=== PATIENT | female | born 1965 | race Hispanic/Latino ===

== ENCOUNTER 2016-03-16 21:13 | Emergency (ER) | payer OTHER ==
[2016-03-16] MEDS ORDERED: TOBRAMYCIN 0.3% OPHTH SOLN 5 ML As Ordered ONE (23:31)
--- NOTE | 2016-03-16 23:49 | EDDOCDS ---
Physician Documentation [facility] Name: Michelle Toro Age: 51 yrs Sex: Female : 1965 Arrival Date: 03/16/2016 Time: 21:13 Bed I10 23 Private MD: ANNE MARIE Martinez Disposition: 03/16/16 23:28 Discharged to Home/Self Care. Impression: Conjunctivitis - BILATERAL. - Condition is Stable. - Discharge Instructions: Conjunctivitis (Viral and Bacterial). - Prescriptions for tobramycin 0.3 % Ophthalmic drops - instill 1 drop by OPHTHALMIC route every 4 hours BOTH EYES; 1 bottle. - Medication Reconciliation, Local Pharmacy Hours form. - Follow up: ANNE MARIE Martinez; When: 2 - 3 days; Reason: Recheck today's complaints, Continuance of care. Follow up: Osmel Denny; When: 2 - 3 days; Reason: Recheck today's complaints, Continuance of care. - Problem is new. - Symptoms have improved. Historical: - Allergies: Ciprofloxacin (Rash); Latex (Rash); Neurontinanxiety; PENICILLINS (Hives); - Home Meds: 1. hydroxyzine 25 mg nightly 25mg 2 tabs po at bedtime 2. pregabalin 25 mg Oral cap bid 3. tizanidine 4 mg oral tab 1 tab every 6 hours - PMHx: Anxiety; back pain; Fibromyalgia; neck pain; Spinal Stenosis; - PSHx: arthroscopy right ankle; - Social history: Smoking status: Patient states was never smoker of tobacco. No barriers to communication noted, The patient speaks fluent Amharic, Speaks appropriately for age, Preferred Language: Amharic. - Family history: Not pertinent. - : The pt / caregiver states he / she is not on anticoagulants. Home medication list is obtained from the patient. - Exposure Risk Screening:: None identified. 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 (160.02 cm) (R); Pain 7/10; 23:44 BP 155 / 83; Pulse 73; Resp 18; Temp 98.4(O); Pulse Ox 98% on R/A; Pain 0/10; rw1 21:15 Body Mass Index 31.18 (79.83 kg, 160.02 cm) elp Visual Acuity: 23:46 Left Eye Visual acuity 20/40, Normal; With Lenses; after Lt eye refused to continue rw1 with eye exam MDM: 23:14 Financial registration complete. pm4 23:21 Tobramycin Drops 0.3 % 1 drps Ophthalmic once; BOTH EYES ordered. ck7 Administered Medications: 23:46 Drug: Tobramycin 1 drps [tobramycin 0.3 % eye drops (1 drps)] Route: Ophthalmic; Site: [facility] both eyes; 23:46 Follow up: Response: Pt left department before re-evaluation is appropriate rw1 Signatures: Maynor Ozuna,FIELD TECHNICAL ASSISTANT FIELD TECHNICAL ASSISTANT rw1 Atiya Cohn,RN RN lf1 Myron Sanderson, ESPINOZA-C RPA-Cck7 George Britt, Reg Reg pm4 The chart was reviewed and I authenticate all verbal orders and agree with the evaluation and treatment provided.Corrections: (The following items were deleted from the chart) 22:53 22:24 Visual Acuity ordered. ck7 rw1 MTDD
--- NOTE | 2016-03-16 23:49 | EDDOCDS ---
Nurse's Notes [facility] Name: Michelle Toro Age: 51 yrs Sex: Female : 1965 Arrival Date: 03/16/2016 Time: 21:13 Bed I10 23 Private MD: ANNE MARIE Martinez Diagnosis: Conjunctivitis-BILATERAL Presentation: 03/16 21:29 Presenting complaint: Patient states: "Extreme allergies and oozing from my eyes" that lf1 causes me to go through three rolls of toilet paper per day. States she has tried Zyrtec and Olopatadine and it didn't work. "I'm here because I don't have a car to go to clinic". Mechanism of Injury: No Mechanism of Injury. The patient denies any loss of vision. Adult Sepsis Screening: The patient does not have new or worsening altered mentation. Patient's respiratory rate is less than 22. Systolic blood pressure is greater than 100. Patient has a qSOFA score of 0- Negative Sepsis Screen. Suicide/Homicide risk assessment- the patient denies having any suicidal and/or homicidal ideations and does not present with any other emotional, behavioral or mental health complaints. Status: Patient is not a director of home health services or dependent. Transition of care: patient was not received from another setting of care. 21:29 Acuity: CASA Level 5 lf1 21:29 Method Of Arrival: Wheelchair lf1 Triage Assessment: 21:39 General: Appears in no apparent distress, comfortable, Behavior is cooperative. Pain: lf1 Location: right eye and left eye Pain currently is 7 out of 10 on a pain scale. HIV screening NA for this visit Offered previously. Neurological: Level of Consciousness is awake, alert. EENT: Reports itchy watery eyes. Respiratory: Respiratory effort is even, unlabored. GI: Denies nausea, vomiting. 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 hydroxyzine 25 mg nightly 25mg 2 tabs po at bedtime 2. pregabalin 25 mg Oral cap bid 3. tizanidine 4 mg oral tab 1 tab every 6 hours - PMHx: Anxiety; back pain; Fibromyalgia; neck pain; Spinal Stenosis; - PSHx: arthroscopy right ankle; - Social history: Smoking status: Patient states was never smoker of tobacco. No barriers to communication noted, The patient speaks fluent [place] Island[place], Speaks appropriately for age, Preferred Language: [place] Island[place]. - Family history: Not pertinent. - : The pt / caregiver states he / she is not on anticoagulants. Home medication list is obtained from the patient. - Exposure Risk Screening:: None identified. Screenin:41 Screening information is obtained from the patient. Fall risk: No risks identified. lf1 Assistance ADL's: requires no assistance with activities of daily living. Abuse/DV Screen: The patient / caregiver reports he/she is: not in a situation that causes fear, pain or injury. Nutritional screening: No deficits noted. Advance Directives: Currently, there is no health care proxy. There is no active DNR order. home support is adequate. Assessment: 23:44 Reassessment: Patient appears in no apparent distress at this time. Patient denies pain rw1 at this time. Patient states feeling better. Patient states symptoms have improved. Vital Signs: 21:15 BP 136 / 84; Pulse 78; Resp 16; Temp 98.7(O); Pulse Ox 99% on R/A; Weight 79.83 kg (R); elp Height 63 in. (160.02 cm) (R); Pain 7/10; 23:44 BP 155 / 83; Pulse 73; Resp 18; Temp 98.4(O); Pulse Ox 98% on R/A; Pain 0/10; rw1 21:15 Body Mass Index 31.18 (79.83 kg, 160.02 cm) elp Vitals: 21:15 Log In Time: March 16, 2016 at 21:13. elp Visual Acuity: 23:46 Left Eye Visual acuity 20/40, Normal; With Lenses; after Lt eye refused to continue rw1 with eye exam ED Course: 21:15 Patient visited by Neeta Nolen PCA. elp 21:15 Michelle [facility] is Private Physician. elp 21:15 Patient moved to Waiting elp 21:17 Patient visited by Neeta Nolen PCA. elp 21:17 Patient moved to Pre RCE elp 21:31 Triage Initiated lf1 22:13 Patient moved to Triage 1 cln 22:24 [facility] 22:24 Filiberto Cook DO is Attending Physician. ck7 22:24 Patient visited by Myron Sanderson RPA-C. ck7 22:27 Patient moved to I10 / 23 cz 23:15 Patient visited by Myron Sanderson RPA-C. ck7 23:27 ANNE MARIE Martinez is Referral Physician. ck7 23:27 Osmel Denny is Referral Physician. ck7 23:44 The patient / caregiver is instructed regarding the plan of care and ED course. rw1 23:44 No IV's were initiated during this patient's visit. No procedures done that require rw1 assistance. Administered Medications: 23:46 Drug: Tobramycin 1 drps [tobramycin 0.3 % eye drops (1 drps)] Route: Ophthalmic; Site: rw1 both eyes; 23:46 Follow up: Response: Pt left department before re-evaluation is appropriate rw1 Order Results: There are currently no results for this order. Outcome: 23:28 Discharge ordered by Provider. ck7 23:44 Discharge Assessment: Patient awake, alert and oriented x 3. No cognitive and/or rw1 functional deficits noted. Patient verbalized understanding of disposition instructions. patient administered narcotics - no. The following High Risk Discharge criteria are identified: None. Discharged to home via wheelchair, with significant other. Condition: stable Condition: improved. Discharge instructions given to patient, Instructed on discharge instructions, follow up and referral plans. medication usage, Demonstrated understanding of instructions, medications, Pt was receptive of discharge instructions/ teaching. Prescriptions given X 1. No special radiology studies were completed. Property sent home with patient. 23:48 Patient left the ED. rw1 Signatures: Celestine Parmar, RN RN cz Maynor Ozuna,OPENING MACHINE CLEANER OPENING MACHINE CLEANER rw1 Atiya Cohn,RN RN 1 Myron Sanderson RPA-C RPA-Cck7 Tamanna, Neeta, AIRPLANE ELECTRICAL REPAIRER AIRPLANE ELECTRICAL REPAIRER elp Dori Loya, AIRPLANE ELECTRICAL REPAIRER AIRPLANE ELECTRICAL REPAIRER cln MTDD
--- NOTE | 2016-03-19 00:49 | EDDOCDS ---
Nurse's Notes [facility] Name: Michelle Toro Age: 51 yrs Sex: Female : 1965 Arrival Date: 03/16/2016 Time: 21:13 Bed I10 23 Private MD: ANNE MARIE Martinez Diagnosis: Conjunctivitis-BILATERAL Presentation: 03/16 21:29 Presenting complaint: Patient states: "Extreme allergies and oozing from my eyes" that lf1 causes me to go through three rolls of toilet paper per day. States she has tried Zyrtec and Olopatadine and it didn't work. "I'm here because I don't have a car to go to clinic". Mechanism of Injury: No Mechanism of Injury. The patient denies any loss of vision. Adult Sepsis Screening: The patient does not have new or worsening altered mentation. Patient's respiratory rate is less than 22. Systolic blood pressure is greater than 100. Patient has a qSOFA score of 0- Negative Sepsis Screen. Suicide/Homicide risk assessment- the patient denies having any suicidal and/or homicidal ideations and does not present with any other emotional, behavioral or mental health complaints. 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 Transition of care: patient was not received from another setting of care. 21:29 Acuity: CASA Level 5 lf1 21:29 Method Of Arrival: Wheelchair lf1 Triage Assessment: 21:39 General: Appears in no apparent distress, comfortable, Behavior is cooperative. Pain: lf1 Location: right eye and left eye Pain currently is 7 out of 10 on a pain scale. HIV screening NA for this visit Offered previously. Neurological: Level of Consciousness is awake, alert. EENT: Reports itchy watery eyes. Respiratory: Respiratory effort is even, unlabored. GI: Denies nausea, vomiting. 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 hydroxyzine 25 mg nightly 25mg 2 tabs po at bedtime 2. pregabalin 25 mg Oral cap bid 3. tizanidine 4 mg oral tab 1 tab every 6 hours - PMHx: Anxiety; back pain; Fibromyalgia; neck pain; Spinal Stenosis; - PSHx: arthroscopy right ankle; - Social history: Smoking status: Patient states was never smoker of tobacco. No barriers to communication noted, The patient speaks fluent Tuvaluan, Speaks appropriately for age, Preferred Language: Tuvaluan. - Family history: Not pertinent. - : The pt / caregiver states he / she is not on anticoagulants. Home medication list is obtained from the patient. - Exposure Risk Screening:: None identified. Screenin:41 Screening information is obtained from the patient. Fall risk: No risks identified. lf1 Assistance ADL's: requires no assistance with activities of daily living. Abuse/DV Screen: The patient / caregiver reports he/she is: not in a situation that causes fear, pain or injury. Nutritional screening: No deficits noted. Advance Directives: Currently, there is no health care proxy. There is no active DNR order. home support is adequate. Assessment: 23:44 Reassessment: Patient appears in no apparent distress at this time. Patient denies pain rw1 at this time. Patient states feeling better. Patient states symptoms have improved. Vital Signs: 21:15 BP 136 / 84; Pulse 78; Resp 16; Temp 98.7(O); Pulse Ox 99% on R/A; Weight 79.83 kg (R); elp Height 63 in. (160.02 cm) (R); Pain 7/10; 23:44 BP 155 / 83; Pulse 73; Resp 18; Temp 98.4(O); Pulse Ox 98% on R/A; Pain 0/10; rw1 21:15 Body Mass Index 31.18 (79.83 kg, 160.02 cm) elp Vitals: 21:15 Log In Time: March 16, 2016 at 21:13. elp Visual Acuity: 23:46 Left Eye Visual acuity 20/40, Normal; With Lenses; after Lt eye refused to continue rw1 with eye exam ED Course: 21:15 Patient visited by Neeta Nolen PCA. elp 21:15 [place] [facility] [place] Physician. elp 21:15 Patient moved to Waiting elp 21:17 Patient visited by Neeta Nolen PCA. elp 21:17 Patient moved to Pre RCE elp 21:31 Triage Initiated lf1 22:13 Patient moved to Triage 1 cln 22:24 [facility] Sand[facility]C [facility] 22:24 Filiberto Cook DO is Attending Physician. ck7 22:24 Patient visited by Myron Sanderson RPA-C. ck7 22:27 Patient moved to I10 / 23 cz 23:15 Patient visited by Myron Sanderson RPA-C. ck7 23:27 ANNE MARIE Martinez is Referral Physician. ck7 23:27 Osmel Denny is Referral Physician. ck7 23:44 The patient / caregiver is instructed regarding the plan of care and ED course. rw1 23:44 No IV's were initiated during this patient's visit. No procedures done that require rw1 assistance. 03/17 00:50 [facility] Payment Agreement was scanned into [employer] and attached to record. pm4 09:39 T-Sheet-- Draft Copy was scanned into [employer] and attached to record. gb Administered Medications: 03/16 23:46 Drug: Tobramycin 1 drps [tobramycin 0.3 % eye drops (1 drps)] Route: Ophthalmic; Site: rw both eyes; 23:46 Follow up: Response: Pt left department before re-evaluation is appropriate rw1 Order Results: There are currently no results for this order. Outcome: 23:28 Discharge ordered by Provider. ck7 23:44 Discharge Assessment: Patient awake, alert and oriented x 3. No cognitive and/or rw1 functional deficits noted. Patient verbalized understanding of disposition instructions. patient administered narcotics - no. The following High Risk Discharge criteria are identified: None. Discharged to home via wheelchair, with significant other. Condition: stable Condition: improved. Discharge instructions given to patient, Instructed on discharge instructions, follow up and referral plans. medication usage, Demonstrated understanding of instructions, medications, Pt was receptive of discharge instructions/ teaching. Prescriptions given X 1. No special radiology studies were completed. Property sent home with patient. 23:48 Patient left the ED. rw1 Signatures: Celestine Parmar, RN RN cz Ignacia Herman, Reg Reg gb Laith,Maynor,MARINE WATER TENDER MARINE WATER TENDER rw1 Atiya Cohn RN RN [facility] Myron Sanderson RPA-C [facility]7 Patchen, Neeta, CLERK TELEGRAPH SERVICE CLERK TELEGRAPH SERVICE elDori Hill, CLERK TELEGRAPH SERVICE CLERK TELEGRAPH SERVICE cln George Britt, Reg Reg pm4 Chart Complete MTDD
--- NOTE | 2016-03-19 00:49 | EDDOCDS ---
Physician Documentation [facility] Name: Michelle Toro Age: 51 yrs Sex: Female : 1965 Arrival Date: 03/16/2016 Time: 21:13 Bed I10 23 Private MD: ANNE MARIE Martinez Disposition: 03/16/16 23:28 Discharged to Home/Self Care. Impression: Conjunctivitis - BILATERAL. - Condition is Stable. - Discharge Instructions: Conjunctivitis (Viral and Bacterial). - Prescriptions for tobramycin 0.3 % Ophthalmic drops - instill 1 drop by OPHTHALMIC route every 4 hours BOTH EYES; 1 bottle. - Medication Reconciliation, Local Pharmacy Hours form. - Follow up: ANNE MARIE Martinez; When: 2 - 3 days; Reason: Recheck today's complaints, Continuance of care. Follow up: Osmel Denny; When: 2 - 3 days; Reason: Recheck today's complaints, Continuance of care. - Problem is new. - Symptoms have improved. Historical: - Allergies: Ciprofloxacin (Rash); Latex (Rash); Neurontinanxiety; PENICILLINS (Hives); - Home Meds: 1. hydroxyzine 25 mg nightly 25mg 2 tabs po at bedtime 2. pregabalin 25 mg Oral cap bid 3. tizanidine 4 mg oral tab 1 tab every 6 hours - PMHx: Anxiety; back pain; Fibromyalgia; neck pain; Spinal Stenosis; - PSHx: arthroscopy right ankle; - Social history: Smoking status: Patient states was never smoker of tobacco. No barriers to communication noted, The patient speaks fluent Khmer, Speaks appropriately for age, Preferred Language: Khmer. - Family history: Not pertinent. - : The pt / caregiver states he / she is not on anticoagulants. Home medication list is obtained from the patient. - Exposure Risk Screening:: None identified. 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 (160.02 cm) (R); Pain 7/10; 23:44 BP 155 / 83; Pulse 73; Resp 18; Temp 98.4(O); Pulse Ox 98% on R/A; Pain 0/10; rw1 21:15 Body Mass Index 31.18 (79.83 kg, 160.02 cm) elp Visual Acuity: 23:46 Left Eye Visual acuity 20/40, Normal; With Lenses; after Lt eye refused to continue rw1 with eye exam MDM: 23:14 Financial registration complete. pm4 23:21 Tobramycin Drops 0.3 % 1 drps Ophthalmic once; BOTH EYES ordered. 03/17 00:50 [facility] Payment Agreement was scanned into [employer] and attached to record. pm4 09:39 T-Sheet-- Draft Copy was scanned into [employer] and attached to record. gb Administered Medications: 03/16 23:46 Drug: Tobramycin 1 drps [tobramycin 0.3 % eye drops (1 drps)] Route: Ophthalmic; Site: [facility] both eyes; 23:46 Follow up: Response: Pt left department before re-evaluation is appropriate rw Signatures: Ignacia Herman, Reg Reg gb Maynor Ozuna LPN LPN rw1 Atiya Cohn,RN RN lf1 Myron Sanderson, RPA-C RPA-Cck7 George Britt, Reg Reg pm4 The chart was reviewed and I authenticate all verbal orders and agree with the evaluation and treatment provided.Corrections: (The following items were deleted from the chart) 22:53 22:24 Visual Acuity ordered. [facility] rw Attachments: 03/17 00:50 [facility] Payment Agreement pm4 09:39 T-Sheet-- Draft Copy gb Chart Complete MTDD
--- NOTE | 2016-03-19 00:49 | EDDOCDS ---
Physician Documentation [facility] Name: iMchelle Toro Age: 51 yrs Sex: Female : 1965 Arrival Date: 03/16/2016 Time: 21:13 Bed I10 23 Private MD: ANNE MARIE Martinez Disposition: 03/16/16 23:28 Discharged to Home/Self Care. Impression: Conjunctivitis - BILATERAL. - Condition is Stable. - Discharge Instructions: Conjunctivitis (Viral and Bacterial). - Prescriptions for tobramycin 0.3 % Ophthalmic drops - instill 1 drop by OPHTHALMIC route every 4 hours BOTH EYES; 1 bottle. - Medication Reconciliation, Local Pharmacy Hours form. - Follow up: ANNE MARIE Martinez; When: 2 - 3 days; Reason: Recheck today's complaints, Continuance of care. Follow up: Osmel Denny; When: 2 - 3 days; Reason: Recheck today's complaints, Continuance of care. - Problem is new. - Symptoms have improved. Historical: - Allergies: Ciprofloxacin (Rash); Latex (Rash); Neurontinanxiety; PENICILLINS (Hives); - Home Meds: 1. hydroxyzine 25 mg nightly 25mg 2 tabs po at bedtime 2. pregabalin 25 mg Oral cap bid 3. tizanidine 4 mg oral tab 1 tab every 6 hours - PMHx: Anxiety; back pain; Fibromyalgia; neck pain; Spinal Stenosis; - PSHx: arthroscopy right ankle; - Social history: Smoking status: Patient states was never smoker of tobacco. No barriers to communication noted, The patient speaks fluent Kazakh, Speaks appropriately for age, Preferred Language: Kazakh. - Family history: Not pertinent. - : The pt / caregiver states he / she is not on anticoagulants. Home medication list is obtained from the patient. - Exposure Risk Screening:: None identified. 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 (160.02 cm) (R); Pain 7/10; 23:44 BP 155 / 83; Pulse 73; Resp 18; Temp 98.4(O); Pulse Ox 98% on R/A; Pain 0/10; rw1 21:15 Body Mass Index 31.18 (79.83 kg, 160.02 cm) elp Visual Acuity: 23:46 Left Eye Visual acuity 20/40, Normal; With Lenses; after Lt eye refused to continue rw1 with eye exam MDM: 23:14 Financial registration complete. pm4 23:21 Tobramycin Drops 0.3 % 1 drps Ophthalmic once; BOTH EYES ordered. 03/17 00:50 [facility] [place] Payment Agreement was scanned into [employer] and attached to record. pm4 09:39 T-Sheet-- Draft Copy was scanned into [employer] and attached to record. gb Administered Medications: 03/16 23:46 Drug: Tobramycin 1 drps [tobramycin 0.3 % eye drops (1 drps)] Route: Ophthalmic; Site: [facility] both eyes; 23:46 Follow up: Response: Pt left department before re-evaluation is appropriate rw Signatures: Ignacia Herman, Reg Reg gb Maynor Ozuna LPN LPN rw1 Atiya Cohn,RN RN lf1 Myron Sanderson, RPA-C RPA-Cck7 George Britt, Reg Reg pm4 The chart was reviewed and I authenticate all verbal orders and agree with the evaluation and treatment provided.Corrections: (The following items were deleted from the chart) 22:53 22:24 Visual Acuity ordered. [facility] rw Attachments: 03/17 00:50 [facility] [place] Payment Agreement pm4 09:39 T-Sheet-- Draft Copy gb Chart Complete MTDD
== END 2016-03-16 23:49 | disposition home or self-care (01) ==
LOC: M ED 21:13
DX: H10.33 Unspecified acute conjunctivitis, bilateral (principal); F41.9 Anxiety disorder, unspecified; M79.7 Fibromyalgia; M54.2 Cervicalgia; M48.00 Spinal stenosis, site unspecified; Z79.899 Other long term (current) drug therapy; Z88.1 Allergy status to other antibiotic agents; Z88.8 Allergy status to other drugs, medicaments and biological substances; Z88.0 Allergy status to penicillin

== ENCOUNTER 2016-04-01 01:35 | Observation (INO) | payer OTHER ==
[~2016-04-01] VITALS: Ht 161.3 cm; Wt 79.7 kg
[2016-04-01] MEDS ORDERED: EPINEPHrine INJ 1 MG/ML 1ML VIAL/AMP As Ordered ONE (02:07)
[2016-04-01] MEDS ORDERED: methylPREDNISolone INJ 125 MG/2 ML VIAL (J2930) As Ordered ONE (02:08)
[2016-04-01] MEDS ORDERED: diphenhydrAMINE INJ 50MG/ML VIAL (J1200) As Ordered ONE (02:08)
[2016-04-01] MEDS ORDERED: FAMOTIDINE INJ 20MG/2ML VIAL (S0028) As Ordered ONE (02:08)
[2016-04-01] MEDS ORDERED: ONDANSETRON 4MG/2ML VIAL (J2405) As Ordered ONE (02:28)
[2016-04-01 03:42] LABS: BASO % 0.3 % (0.0-1.0); EOS # 0.3 K/mm3 (0.0-0.50); EOS % 3.2 % (0.0-3.0); LARGE UNSTAINED CELL # 0.2 K/mm3 (0.0-0.4); LARGE UNSTAINED CELL % 1.8 % (0.0-4.0); LYMPH # 4.4 K/mm3 (1.5-4.5); LYMPH % 42.4 % (24.0-44.0); MEAN CORPUSCULAR HEMOGLOBIN 28.7 pg (27.0-33.0); MEAN CORPUSCULAR HGB CONC 32.9 g/dl (32.0-36.5); MEAN CORPUSCULAR VOLUME 87.2 fl (80.0-96.0); MONO # 0.4 K/mm3 (0.0-0.8); MONO % 3.9 % (0.0-5.0); NEUTROPHILS # 5.1 K/mm3 (1.8-7.7); NEUTROPHILS % 48.5 % (36.0-66.0); PLATELET COUNT, AUTOMATED 396 k/mm3 (150-450); RED CELL DISTRIBUTION WIDTH 13.3 % (11.5-14.5); WHITE BLOOD COUNT 10.4 K/mm3 (4.0-10.0)
[2016-04-01 03:46] LABS: ANION GAP 9 MEQ/L (8-16); BLOOD UREA NITROGEN 14 MG/DL (7-18); CALCIUM LEVEL 8.1 MG/DL (8.5-10.1); CARBON DIOXIDE LEVEL 27 MEQ/L (21-32); CHLORIDE LEVEL 108 MEQ/L (98-107); CREATININE FOR GFR 0.69 MG/DL (0.55-1.02); GLOMERULAR FILTRATION RATE > 60.0 (>51); GLUCOSE, FASTING 120 MG/DL (70-105); POTASSIUM SERUM 3.7 MEQ/L (3.5-5.1); SODIUM LEVEL 144 MEQ/L (136-145)
[2016-04-01 04:02] LABS: ERYTHROCYTE SEDIMENTATION RATE 18 mm/hr (0-30)
[2016-04-01] MEDS ORDERED: NS 1,000 ML IV SCH (06:18)
[2016-04-01] MEDS ORDERED: EPINEPHrine INJ 1 MG/ML 1ML VIAL/AMP IV PRN (06:30)
[2016-04-01] MEDS ORDERED: ACETAMINOPHEN TAB 650MG DOSE (2X325MG) PO PRN (06:30)
[2016-04-01] MEDS ORDERED: diphenhydrAMINE INJ 50MG/ML VIAL (J1200) IV PRN (06:30)
[2016-04-01] MEDS ORDERED: ONDANSETRON 4MG/2ML VIAL (J2405) IV PRN (06:30)
--- NOTE | 2016-04-01 06:38 | HPEPDOC ---
General Date of Admission 04/01/2016 Chief Complaint The patient is a 51-year-old female admitted with a reason for visit of Allergic Reaction. Source: Patient Exam Limitations: No limitations History of Present Illness 51-year-old female with past medical history of fibromyalgia and spinal stenosis presented to the ER with a chief complaint of swelling of the lips, and hoarseness of voice. According to the patient, she recently had her Lyrica dose increased from 25 mg daily to 200 mg daily by her primary care physician. She states that she started to feel "foggy" mentally, and subsequently started to develop swelling of the lips, and noticed that her voice sounded more muffled. In addition, the patient notes that she also felt like she had difficulty breathing during this time. In the ER, the patient received a dose of Solu-Medrol, Benadryl, Pepcid, and epinephrine. Subsequently, the patient's lip swelling, voice, and respiratory status significantly improved thereafter. The patient denies any complaints of fevers, chills, shortness of breath, palpitations, abdominal pain, or any nausea/vomiting at this time. The patient will be admitted to the hospitalist service for further monitoring of her symptoms given the recent turn of events. Past Medical History Medical History As noted in HPI. 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 Lives at home, functions independently, ambulates with a walker. Review of Symptoms Other systems 10 point review of systems negative unless otherwise specified in HPI. Physical Examination General Exam: Positive: Alert, Cooperative, No Acute Distress ENT Exam: Positive: Atraumatic, Mucous membr. moist/pink, Nares Patent, Pharynx Normal, Tongue Midline, Negative: Pharyngeal Edema Neck Exam: Negative: JVD, Lymphadenopathy, thyromegaly Chest Exam: Positive: Clear to auscultation, Normal air movement Heart Exam: Positive: Normal S1, Normal S2, Rate Normal Telemetry: Positive: Sinus Abdomen Exam: Positive: Soft, Negative: Tenderness Extremity Exam: Negative: Swelling, Tenderness Laboratory Data Labs 24H Laboratory Tests 2 04/01/16 02:33: Anion Gap 9, White Blood Count 10.4H, Red Blood Count 3.96L, Hemoglobin 11.4L, Hematocrit 34.5L, Mean Corpuscular Volume 87.2, Mean Corpuscular Hemoglobin 28.7 , Mean Corpuscular Hemoglobin Concent 32.9, Red Cell Distribution Width 13.3, Platelet Count 396, Neutrophils (%) (Auto) 48.5, Lymphocytes (%) (Auto) 42.4, Monocytes (%) (Auto) 3.9, Eosinophils (%) (Auto) 3.2H, Basophils (%) (Auto) 0.3 , Neutrophils # (Auto) 5.1, Lymphocytes # (Auto) 4.4, Monocytes # (Auto) 0.4, Eosinophils # (Auto) 0.3, Basophils # (Auto) 0.0, C-Reactive Protein, Quantitative 0.81H, Blood Urea Nitrogen 14, Creatinine 0.69, Sodium Level 144, Potassium Level 3.7, Chloride Level 108H, Carbon Dioxide Level 27, Calcium Level 8.1L, Creatine Kinase MB 1.3, Creatine Kinase MB Relative Index 4.06H, Erythrocyte Sedimentation Rate 18, Glomerular Filtration Rate > 60.0, Large Unclassified Cells # 0.2, Large Unclassified Cells % 1.8, Total Creatine Kinase 32, Troponin I < 0.02 CBC/BMP Laboratory Tests 04/01/16 02:33 Calcium Level 8.1 L, Red Blood Count 3.96 L, Mean Corpuscular Volume 87.2, Mean Corpuscular Hemoglobin 28.7, Mean Corpuscular Hemoglobin Concent 32.9, Red Cell Distribution Width 13.3, Neutrophils (%) (Auto) 48.5, Lymphocytes (%) (Auto) 42.4, Monocytes (%) (Auto) 3.9, Eosinophils (%) (Auto) 3.2 H, Basophils (%) ( Auto) 0.3, Neutrophils # (Auto) 5.1, Lymphocytes # (Auto) 4.4, Monocytes # (Auto ) 0.4, Eosinophils # (Auto) 0.3, Basophils # (Auto) 0.0 Plan / VTE VTE Prophylaxis Ordered?: Yes (TEDs) Plan Plan Angioedema secondary to medication effect We'll admit to telemetry for further monitoring Status post Solu-Medrol, Benadryl, epinephrine, and Pepcid in the ER Patient's symptoms of angioedema have since resolved We'll discontinue the Lyrica at this time Benadryl, epinephrine ordered when necessary for allergic reaction Continue gentle IV fluid hydration We'll continue to monitor the patient's respiratory status closely Fibromyalgia Continue tizanidine, hydroxyzine History of spinal stenosis Patient ambulates with a cane at baseline. We will order physical therapy, as the patient states that she is feeling weaker in recent weeks DVT prophylaxis-TEDs The patient will be admitted under the service of Dr. Rogel, who will begin to follow this patient on 04/01/2016 at 7 AM. KYLEE MENON MD Apr 01, 2016 06:38
[2016-04-01] MEDS ORDERED: TIZA4CAP3 PO (06:57)
[2016-04-01] MEDS ORDERED: HYDR-4274 PO (06:57)
[2016-04-01] MEDS ORDERED: LYRI200C PO (06:57)
[2016-04-01] MEDS ORDERED: tiZANidine 4 MG TAB As Ordered ONE (08:54)
[2016-04-01] MEDS ORDERED: hydrOXYzine 25 MG TAB As Ordered ONE (08:55)
[2016-04-01] MEDS: hydrOXYzine 25 MG TAB PO SCH ×2 (08:57→21:23)
[2016-04-01] MEDS: tiZANidine 4 MG TAB PO SCH ×3 (08:57→21:23)
[2016-04-01 09:01] VITALS: BP 133/60
--- NOTE | 2016-04-01 12:55 | ECGEPIP ---
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
--- NOTE | 2016-04-01 13:52 | EDDOCDS ---
Physician Documentation [facility] Name: Michelle Toro Age: 51 yrs Sex: Female : 1965 Arrival Date: 04/01/2016 Time: 01:35 Bed 19 Private MD: Disposition: 04/01/16 05:54 Hospitalization ordered by Rivera Toth for Inpatient Admission. Preliminary diagnosis are Anaphylactic reaction due to adverse effect of correct drug or medicament properly administered, Hypotension, unspecified. - Bed requested for PCU. - Status is Inpatient Admission. dy - Condition is Stable. - Problem is an acute exacerbation. - Symptoms have improved. Historical: - Allergies: Ciprofloxacin (Rash); Latex (Rash); Neurontinanxiety; PENICILLINS (Hives); - Home Meds: 1. hydroxyzine 25 mg nightly 25mg 2 tabs po at bedtime 2. pregabalin 25 mg Oral cap bid 3. tizanidine 4 mg oral tab 1 tab every 6 hours - PMHx: Anxiety; back pain; Fibromyalgia; neck pain; Spinal Stenosis; - Social history: Smoking status: Patient states former smoker of tobacco. No barriers to communication noted, The patient speaks fluent Albanian. - Family history: No immediate family members are acutely ill. - : The pt / caregiver states he / she is not on anticoagulants. Home medication list is obtained from the patient. - Exposure Risk Screening:: None identified. BELT SEWER: 04/01 01:50 LMP N/A - Post-menopause kas2 Vital Signs: 01:56 BP 92 / 54; Pulse 64; Resp 18; Pulse Ox 94% on R/A; Pain 4/10; kas2 02:14 BP 87 / 54 (auto/); mv5 02:14 Pulse 68 MON; Pulse Ox 95% ; mv5 02:25 BP 94 / 54 (auto/); mv5 02:25 Pulse 74 MON; Pulse Ox 92% ; mv5 02:29 BP 103 / 55 (auto/); mv5 02:29 Pulse 72 MON; Pulse Ox 93% ; mv5 02:47 BP 97 / 55 (auto/); mv5 02:47 Pulse 78 MON; Pulse Ox 95% ; mv5 02:59 BP 94 / 53 (auto/); mv5 02:59 Pulse 76 MON; Pulse Ox 98% ; mv5 03:14 BP 84 / 51 (auto/); mv5 03:14 Pulse 74 MON; Pulse Ox 99% ; mv5 03:23 BP 92 / 52 (auto/); mv5 03:23 Pulse 74 MON; Pulse Ox 99% ; mv5 03:29 BP 80 / 50 (auto/); mv5 03:29 Pulse 72 MON; Pulse Ox 98% ; mv5 03:34 BP 88 / 53 (auto/); mv5 03:34 Pulse 70 MON; Pulse Ox 98% ; mv5 03:44 BP 80 / 51 (auto/); mv5 03:44 Pulse 68 MON; Pulse Ox 98% ; mv5 03:46 BP 86 / 53 (auto/); mv5 03:46 Pulse 76 MON; Pulse Ox 99% ; mv5 03:59 BP 79 / 52 (auto/); mv5 03:59 Pulse 68 MON; Pulse Ox 99% ; mv5 04:03 BP 92 / 51 (auto/); mv5 04:03 Pulse 72 MON; Pulse Ox 99% ; mv5 04:14 BP 83 / 52 (auto/); mv5 04:14 Pulse 68 MON; Pulse Ox 98% ; mv5 04:29 BP 81 / 52 (auto/); mv5 04:29 Pulse 68 MON; Pulse Ox 99% ; mv5 05:03 BP 87 / 51 (auto/); mv5 05:03 Pulse 66 MON; Pulse Ox 98% ; mv5 05:14 BP 90 / 54 (auto/); mv5 05:14 Pulse 68 MON; Pulse Ox 98% ; mv5 05:29 BP 83 / 54 (auto/); mv5 05:29 Pulse 64 MON; Pulse Ox 99% ; mv5 05:37 BP 89 / 55 (auto/); mv5 05:37 Pulse 72 MON; Pulse Ox 98% ; mv5 05:44 BP 91 / 58 (auto/); mv5 05:44 Pulse 74 MON; Pulse Ox 98% ; mv5 05:59 BP 94 / 57 (auto/); mv5 05:59 Pulse 70 MON; Pulse Ox 98% ; mv5 06:14 BP 88 / 52 (auto/); mv5 06:14 Pulse 70 MON; Pulse Ox 98% ; mv5 06:35 BP 103 / 57 (auto/); mv5 06:37 Pulse 70 MON; Pulse Ox 92% ; mv5 07:05 Temp 96.8(O); jrd 07:05 BP 89 / 54 (auto/); mv5 07:05 Pulse 68 MON; Pulse Ox 96% ; mv5 07:34 Pulse 96 MON; Pulse Ox 94% ; hs1 07:35 BP 108 / 58 (auto/); hs1 07:35 BP 108 / 58; Pulse 97; Resp 18; Pulse Ox 94% on R/A; Pain 0/10; hs1 08:23 Pulse 92 MON; Pulse Ox 94% ; hs1 08:24 BP 103 / 68 (auto/); hs1 MDM: 02:02 IV Saline Lock ordered. mm11 02:02 NS 0.9% 1000 ml IV at bolus once ordered. mm11 02:02 Solu-MEDROL 125 mg IVP once ordered. mm11 02:02 diphenhydrAMINE 50 mg IVP once ordered. mm11 02:02 Famotidine 20 mg IVPB once over 30 mins; dilute in 50mL of NS ordered. mm11 02:02 EPINEPHrine (1:1000) 0.3 ml IM once; Deep IM ordered. mm11 02:14 [employer] Supervisor/Pulse Ox/q 30 min VS ordered. mm11 02:19 The patient was assigned to Observation Status due to the intensity of required mm11 treatment, and remained under my care. 02:28 Ondansetron 4 mg IVP once ordered. mm11 02:48 Financial registration complete. pm4 02:49 [facility] Payment Agreement was scanned into [employer] and attached to record. pm4 03:25 NS 0.9% 1000 ml IV at bolus once ordered. mm11 03:25 CBC with Diff Ordered. EDMS 03:25 BMP Ordered. EDMS 03:25 ESR Ordered. EDMS 03:25 CRP Ordered. EDMS 03:59 CBC with Diff Reviewed. mm11 03:59 BMP Reviewed. mm11 03:59 CRP Reviewed. mm11 04:05 ECG WITH READING ER PHYS+CARDIAG ordered. EDMS 04:06 Cardiac Marker Panel Ordered. EDMS 04:32 CBC with Diff Reviewed. mm11 04:32 Cardiac Marker Panel Reviewed. mm11 04:32 ESR Reviewed. mm11 05:44 LR Solution 1000 ml IV at bolus once ordered. mm11 06:26 TROPONIN Ordered. EDMS 06:26 TROPONIN Ordered. EDMS 06:26 TROPONIN Ordered. EDMS 06:27 PHYSICAL THERAPY EVAL & TREAT ordered. EDMS 06:28 Admission / Observation Status ordered. EDMS 06:28 REGULAR DIET ordered. EDMS 06:53 Oral Temp ordered. ml 09:56 T-Sheet-- Draft Copy was scanned into [employer] and attached to record. gb Administered Medications: 02:36 Drug: Ondansetron 4 mg [ondansetron HCl 2 mg/mL intravenous solution (2 mL)] Route: mv5 IVP; Site: right hand; 03:26 Follow up: Response: Nausea is decreased; No Adverse Reaction mv5 02:37 Drug: diphenhydrAMINE 50 mg [diphenhydramine 50 mg/mL injection solution (1 mL)] Route: mv5 IVP; Site: right hand; 03:26 Follow up: Response: No Adverse Reaction mv5 02:37 Drug: Famotidine 20 mg [famotidine 10 mg/mL intravenous solution] Route: IVPB; Infused mv5 Over: 30 mins; Site: right hand; 02:37 Drug: EPINEPHrine (1:1000) 0.3 ml [epinephrine HCl (PF) 1 mg/mL (1 mL) intravenous mv5 solution (0.3 mL)] Route: IM; Site: right deltoid; 03:26 Follow up: Response: No Adverse Reaction mv5 02:38 Drug: NS 0.9% 1000 ml [sodium chloride 0.9 % intravenous solution] Route: IV; Rate: mv5 bolus; Site: right hand; 02:38 Drug: Solu-MEDROL 125 mg [Solu-Medrol 500 mg intravenous solution (125 mg)] Route: IVP; mv5 Site: right hand; 03:26 Follow up: Response: No Adverse Reaction mv5 03:25 Drug: NS 0.9% 1000 ml [sodium chloride 0.9 % intravenous solution] Route: IV; Rate: mv5 bolus; Site: right hand; 05:55 Drug: LR 1000 ml [lactated ringers intravenous solution] Route: IV; Rate: bolus; Site: mv5 right hand; 07:35 Follow up: BP 108 / 58; Pulse 97 bpm; Resp 18 bpm; Pulse Ox 94% RA; Pain 0/10 Adult hs1 07:35 Follow up: IV Status: Completed infusion; IV Intake: 1000ml hs1 Signatures: Dispatcher [employer] EDNE Vera Sauceda MD MD ml Miranda Garza, Thermostat Maker Unit deg Ignacia Herman, Reg Reg gb Burke Shepherd, RN RN dy Nadeem Peña, DO DO mm11 Elisa Buenrostro,RN RN kas2 George Britt, Reg Reg pm4 Ping Lopez,RN RN mv5 Aurea Richards RN hs1 The chart was reviewed and I authenticate all verbal orders and agree with the evaluation and treatment provided.Attachments: 02:49 [facility] Payment Agreement pm4 09:56 T-Sheet-- Draft Copy gb MTDD
--- NOTE | 2016-04-01 13:52 | EDDOCDS ---
Nurse's Notes [facility] Name: Katherine Toro Age: 51 yrs Sex: Female : 1965 Arrival Date: 04/01/2016 Time: 01:35 Bed 19 Private MD: Diagnosis: Anaphylactic reaction due to adverse effect of correct drug or medicament properly administered;Hypotension, unspecified Presentation: 04/01 01:45 Presenting complaint: Patient states: Patient states her physician increased her dose kas2 of lyrica on Mar 30 and she has noticed today her lips are swelling and itching. States it is harder to swallow. Patient able to swallow secretions. Complaining of chest pain and shortness of breath. Onset: The symptoms/episode began/occurred yesterday. The patient has a history of a previous allergic reaction. The previous reaction involved swelling. The previous reaction involved shortness of breath. Anaphylaxis evaluation, the patient reports or I have noted the following symptoms which indicate a significant risk of anaphylaxis: chest pain lump in the throat which may suggest laryngeal edema shortness of breath. Adult Sepsis Screening: The patient does not have new or worsening altered mentation. Patient's respiratory rate is less than 22. Systolic blood pressure is greater than 100. Patient has a qSOFA score of 0- Negative Sepsis Screen. Suicide/Homicide risk assessment- the patient denies having any suicidal and/or homicidal ideations and does not present with any other emotional, behavioral or mental health complaints. Status: retired . Transition of care: patient was not received from another setting of care. 01:45 Acuity: CASA Level 2 kas2 01:45 Method Of Arrival: Walkin/Carried/Asstd kas2 Triage Assessment: 01:50 General: Appears in no apparent distress, uncomfortable, well nourished, well groomed, kas2 Behavior is appropriate for age, cooperative. Pain: Location: chest Pain currently is 6 out of 10 on a pain scale. Pt Declines HIV testing. Neurological: Level of Consciousness is awake, alert, Oriented to person, place, time. EENT:. Cardiovascular: Capillary refill < 3 seconds Heart tones S1 S2 present. Respiratory: Airway is patent Respiratory effort is even, unlabored, Respiratory pattern is regular, symmetrical, Reports shortness of breath at rest. Derm: Skin is intact, Skin is dry, Skin is pink, warm & dry. Skin temperature is warm. Derm: Patient states her lips are swollen and she feels her throat is closing up. Swollen area noted on lips. Musculoskeletal: Reports Denies. 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 hydroxyzine 25 mg nightly 25mg 2 tabs po at bedtime 2. pregabalin 25 mg Oral cap bid 3. tizanidine 4 mg oral tab 1 tab every 6 hours - PMHx: Anxiety; back pain; Fibromyalgia; neck pain; Spinal Stenosis; - Social history: Smoking status: Patient states former smoker of tobacco. No barriers to communication noted, The patient speaks fluent Korean. - Family history: No immediate family members are acutely ill. - : The pt / caregiver states he / she is not on anticoagulants. Home medication list is obtained from the patient. - Exposure Risk Screening:: None identified. Screenin:50 Screening information is obtained from the patient. Fall risk: No risks identified. mv5 Assistance ADL's: requires no assistance with activities of daily living. Abuse/DV Screen: The patient / caregiver reports he/she is: not in a situation that causes fear, pain or injury. Nutritional screening: No deficits noted. Advance Directives: There is no active DNR order. home support is adequate. Assessment: 01:50 General: Appears in no apparent distress, Behavior is anxious. Neurological: Level of mv5 Consciousness is awake, alert, Oriented to person, place, time. Cardiovascular: Capillary refill < 3 seconds Heart tones S1 S2 present Rhythm is regular. Respiratory: Airway is patent Respiratory effort is even, unlabored, Respiratory pattern is regular, symmetrical, Breath sounds are clear bilaterally. Derm: Skin is pink, warm & dry. 03:00 General: Appears in no apparent distress, Behavior is cooperative, drowsy. General: mv5 Appears to be sleeping. Neurological: Level of Consciousness is wakes easily to voice.. Cardiovascular: Rhythm is sinus rhythm No ectopy. Respiratory: Airway is patent Respiratory effort is even, unlabored, relaxed, Respiratory pattern is regular, symmetrical, 2LNC applied for sp02 89-90% on RA. Pt encouraged to take deep breaths periodically. Derm: Skin is pink, warm & dry. 03:49 General: Appears uncomfortable. Neurological: Level of Consciousness is awake, alert, mv5 Oriented to person, place, time. Cardiovascular: Rhythm is sinus rhythm No ectopy. Cardiovascular: Chest pain is described as pt c/o discomfort in R/L chest, non radiating. MD aware.. quality is pressure. Respiratory: Airway is patent Respiratory effort is even, unlabored, Respiratory pattern is regular, symmetrical. Derm: Skin is pink, warm & dry. 04:36 General: Appears in no apparent distress, to be sleeping. Cardiovascular: Rhythm is mv5 sinus rhythm No ectopy. Respiratory: Airway is patent Respiratory effort is even, unlabored, relaxed, Respiratory pattern is regular, symmetrical. Derm: Skin is pink, warm & dry. 05:35 General: Appears in no apparent distress, to be sleeping. Cardiovascular: Rhythm is mv5 sinus rhythm. Respiratory: Airway is patent Respiratory effort is even, unlabored, Respiratory pattern is regular, symmetrical, Breath sounds are clear. Derm: Skin is pink, warm & dry. 06:40 General: Appears in no apparent distress, Behavior is cooperative, pleasant, Pt mv5 assisted to restroom and returned safely. Pt ambulates with stand by assist and steady gait.. Neurological: Level of Consciousness is awake, alert, Oriented to person, place, time. Cardiovascular: Rhythm is sinus rhythm No ectopy. Respiratory: Airway is patent Respiratory effort is even, unlabored, Respiratory pattern is regular, symmetrical. Derm: Skin is pink, warm & dry. 07:40 General: Appears in no apparent distress, Behavior is cooperative, patient states she hs1 is feeling much better than during the night. Patient has eaten breakfast and reports tingling in lips has decreased. . Respiratory: Airway is patent Respiratory effort is even, unlabored, Respiratory pattern is regular, symmetrical, Breath sounds are clear bilaterally. Derm: Skin is pink, warm & dry. mild redness and swelling around lips. Patient reports very much improved since her arrival last night. Vital Signs: 01:56 BP 92 / 54; Pulse 64; Resp 18; Pulse Ox 94% on R/A; Pain 4/10; kas2 02:14 BP 87 / 54 (auto/); mv5 02:14 Pulse 68 MON; Pulse Ox 95% ; mv5 02:25 BP 94 / 54 (auto/); mv5 02:25 Pulse 74 MON; Pulse Ox 92% ; mv5 02:29 BP 103 / 55 (auto/); mv5 02:29 Pulse 72 MON; Pulse Ox 93% ; mv5 02:47 BP 97 / 55 (auto/); mv5 02:47 Pulse 78 MON; Pulse Ox 95% ; mv5 02:59 BP 94 / 53 (auto/); mv5 02:59 Pulse 76 MON; Pulse Ox 98% ; mv5 03:14 BP 84 / 51 (auto/); mv5 03:14 Pulse 74 MON; Pulse Ox 99% ; mv5 03:23 BP 92 / 52 (auto/); mv5 03:23 Pulse 74 MON; Pulse Ox 99% ; mv5 03:29 BP 80 / 50 (auto/); mv5 03:29 Pulse 72 MON; Pulse Ox 98% ; mv5 03:34 BP 88 / 53 (auto/); mv5 03:34 Pulse 70 MON; Pulse Ox 98% ; mv5 03:44 BP 80 / 51 (auto/); mv5 03:44 Pulse 68 MON; Pulse Ox 98% ; mv5 03:46 BP 86 / 53 (auto/); mv5 03:46 Pulse 76 MON; Pulse Ox 99% ; mv5 03:59 BP 79 / 52 (auto/); mv5 03:59 Pulse 68 MON; Pulse Ox 99% ; mv5 04:03 BP 92 / 51 (auto/); mv5 04:03 Pulse 72 MON; Pulse Ox 99% ; mv5 04:14 BP 83 / 52 (auto/); mv5 04:14 Pulse 68 MON; Pulse Ox 98% ; mv5 04:29 BP 81 / 52 (auto/); mv5 04:29 Pulse 68 MON; Pulse Ox 99% ; mv5 05:03 BP 87 / 51 (auto/); mv5 05:03 Pulse 66 MON; Pulse Ox 98% ; mv5 05:14 BP 90 / 54 (auto/); mv5 05:14 Pulse 68 MON; Pulse Ox 98% ; mv5 05:29 BP 83 / 54 (auto/); mv5 05:29 Pulse 64 MON; Pulse Ox 99% ; mv5 05:37 BP 89 / 55 (auto/); mv5 05:37 Pulse 72 MON; Pulse Ox 98% ; mv5 05:44 BP 91 / 58 (auto/); mv5 05:44 Pulse 74 MON; Pulse Ox 98% ; mv5 05:59 BP 94 / 57 (auto/); mv5 05:59 Pulse 70 MON; Pulse Ox 98% ; mv5 06:14 BP 88 / 52 (auto/); mv5 06:14 Pulse 70 MON; Pulse Ox 98% ; mv5 06:35 BP 103 / 57 (auto/); mv5 06:37 Pulse 70 MON; Pulse Ox 92% ; mv5 07:05 Temp 96.8(O); jrd 07:05 BP 89 / 54 (auto/); mv5 07:05 Pulse 68 MON; Pulse Ox 96% ; mv5 07:34 Pulse 96 MON; Pulse Ox 94% ; hs1 07:35 BP 108 / 58 (auto/); hs1 07:35 BP 108 / 58; Pulse 97; Resp 18; Pulse Ox 94% on R/A; Pain 0/10; hs1 08:23 Pulse 92 MON; Pulse Ox 94% ; hs1 08:24 BP 103 / 68 (auto/); hs1 Vitals: 01:50 Log In Time: April 01, 2016 at 01:45. [facility] ED Course: 01:37 Patient visited by Charla Wiley. gjb 01:37 Patient moved to Waiting gjb 01:44 Ping Lopez RN is Primary Nurse. kas2 01:44 Patient moved to 5 kas2 01:48 Triage Initiated kas2 01:49 Stephanie Peña DO is Attending Physician. mm11 01:49 Patient visited by Stephanie Peña DO. mm11 01:50 The patient / caregiver is instructed regarding the plan of care and ED course. mv5 01:56 Patient visited by Elisa Buenrostro RN. kas2 01:57 Patient visited by Elisa Buenrostro RN. kas2 02:01 Patient visited by Stephanie Peña DO. mm11 02:20 Patient moved to OBSERVATION mm11 02:38 Inserted saline lock: 20 gauge in right hand and blood collected. The patient tolerated mv5 the procedure well. 02:39 Inserted saline lock: 20 gauge in left forearm. mv5 02:49 [facility] Payment Agreement was scanned into [employer] and attached to record. pm4 04:48 Patient visited by Cesar Montgomery PCA. jmv 04:48 EKG done. (by ED staff). Reviewed by Stephanie Peña DO. jmv 05:53 Rivera Toth is Hospitalizing Provider. mm11 07:28 Primary Nurse role handed off by Ping Lopez RN mlb1 08:01 Patient moved to Admit Hold dy 08:03 Patient visited by Aurea Richards, MARIAN. hs1 08:27 Aurea Richards, MARIAN is Primary Nurse. hs1 08:40 Patient moved to 19 hs1 08:42 No procedures done that require assistance. hs1 09:56 T-Sheet-- Draft Copy was scanned into [employer] and attached to record. gb 13:27 EKG-ADULT Returned. EDMS Administered Medications: 02:36 Drug: Ondansetron 4 mg [ondansetron HCl 2 mg/mL intravenous solution (2 mL)] Route: mv5 IVP; Site: right hand; 03:26 Follow up: Response: Nausea is decreased; No Adverse Reaction mv5 02:37 Drug: diphenhydrAMINE 50 mg [diphenhydramine 50 mg/mL injection solution (1 mL)] Route: mv5 IVP; Site: right hand; 03:26 Follow up: Response: No Adverse Reaction mv5 02:37 Drug: Famotidine 20 mg [famotidine 10 mg/mL intravenous solution] Route: IVPB; Infused mv5 Over: 30 mins; Site: right hand; 02:37 Drug: EPINEPHrine (1:1000) 0.3 ml [epinephrine HCl (PF) 1 mg/mL (1 mL) intravenous mv5 solution (0.3 mL)] Route: IM; Site: right deltoid; 03:26 Follow up: Response: No Adverse Reaction mv5 02:38 Drug: NS 0.9% 1000 ml [sodium chloride 0.9 % intravenous solution] Route: IV; Rate: mv5 bolus; Site: right hand; 02:38 Drug: Solu-MEDROL 125 mg [Solu-Medrol 500 mg intravenous solution (125 mg)] Route: IVP; mv5 Site: right hand; 03:26 Follow up: Response: No Adverse Reaction mv5 03:25 Drug: NS 0.9% 1000 ml [sodium chloride 0.9 % intravenous solution] Route: IV; Rate: mv5 bolus; Site: right hand; 05:55 Drug: LR 1000 ml [lactated ringers intravenous solution] Route: IV; Rate: bolus; Site: mv5 right hand; 07:35 Follow up: BP 108 / 58; Pulse 97 bpm; Resp 18 bpm; Pulse Ox 94% RA; Pain 0/10 Adult hs1 07:35 Follow up: IV Status: Completed infusion; IV Intake: 1000ml hs1 Intake: 07:35 IV: 1000.00ml; Total: 1000.00ml. hs1 Order Results: Lab Order: CBC with Diff; SPEC'M 04/01/16 02:33 Test: WHITE BLOOD COUNT; Value: 10.4; Range: 4.0-10.0; Abnormal: Above high normal; Units: K/mm3; Status: F Test: RED BLOOD COUNT; Value: 3.96; Range: 4.00-5.40; Abnormal: Below low normal; Units: M/mm3; Status: F Test: HEMOGLOBIN; Value: 11.4; Range: 12.0-16.0; Abnormal: Below low normal; Units: g/dl; Status: F Test: HEMATOCRIT; Value: 34.5; Range: 36.0-47.0; Abnormal: Below low normal; Units: %; Status: F Test: MEAN CORPUSCULAR VOLUME; Value: 87.2; Range: 80.0-96.0; Units: fl; Status: F Test: MEAN CORPUSCULAR HEMOGLOBIN; Value: 28.7; Range: 27.0-33.0; Units: pg; Status: F Test: MEAN CORPUSCULAR HGB CONC; Value: 32.9; Range: 32.0-36.5; Units: g/dl; Status: F Test: RED CELL DISTRIBUTION WIDTH; Value: 13.3; Range: 11.5-14.5; Units: %; Status: F Test: PLATELET COUNT, AUTOMATED; Value: 396; Range: 150-450; Units: k/mm3; Status: F Test: NEUTROPHILS %; Value: 48.5; Range: 36.0-66.0; Units: %; Status: F Test: LYMPH %; Value: 42.4; Range: 24.0-44.0; Units: %; Status: F Test: MONO %; Value: 3.9; Range: 0.0-5.0; Units: %; Status: F Test: EOS %; Value: 3.2; Range: 0.0-3.0; Abnormal: Above high normal; Units: %; Status: F Test: BASO %; Value: 0.3; Range: 0.0-1.0; Units: %; Status: F Test: LARGE UNSTAINED CELL %; Value: 1.8; Range: 0.0-4.0; Units: %; Status: F Test: NEUTROPHILS #; Value: 5.1; Range: 1.8-7.7; Units: K/mm3; Status: F Test: LYMPH #; Value: 4.4; Range: 1.5-4.5; Units: K/mm3; Status: F Test: MONO #; Value: 0.4; Range: 0.0-0.8; Units: K/mm3; Status: F Test: EOS #; Value: 0.3; Range: 0.0-0.50; Units: K/mm3; Status: F Test: BASO #; Value: 0.0; Range: 0.0-0.2; Units: K/mm3; Status: F Test: LARGE UNSTAINED CELL #; Value: 0.2; Range: 0.0-0.4; Units: K/mm3; Status: F Lab Order: [facility]; SPEC'M 04/01/16 02:33 Test: GLUCOSE, FASTING; Value: 120; Range: 70-105; Abnormal: Above high normal; Units: MG/DL; Status: F Test: BLOOD UREA NITROGEN; Value: 14; Range: 7-18; Units: MG/DL; Status: F Test: CREATININE FOR GFR; Value: 0.69; Range: 0.55-1.02; Units: MG/DL; Status: F Test: GLOMERULAR FILTRATION RATE; Value: > 60.0; Range: >51; Status: F Test: SODIUM LEVEL; Value: 144; Range: 136-145; Units: MEQ/L; Status: F Test: POTASSIUM SERUM; Value: 3.7; Range: 3.5-5.1; Units: MEQ/L; Status: F Test: CHLORIDE LEVEL; Value: 108; Range: 98-107; Abnormal: Above high normal; Units: MEQ/L; Status: F Test: CARBON DIOXIDE LEVEL; Value: 27; Range: 21-32; Units: MEQ/L; Status: F Test: ANION GAP; Value: 9; Range: 8-16; Units: MEQ/L; Status: F Test: CALCIUM LEVEL; Value: 8.1; Range: 8.5-10.1; Abnormal: Below low normal; Units: MG/DL; Status: F Test Note: ; Units are mL/min/1.73 m2 Chronic Kidney Disease Staging per NKF: Stage I & II GFR >=60 Normal to Mildly Decreased Stage III GFR 30-59 Moderately Decreased Stage IV GFR 15-29 Severely Decreased Stage V GFR <15 Very Little GFR Left ESRD GFR <15 on 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 Lab Order: ESR; 04/01/16 02:33 Test: ERYTHROCYTE SEDIMENTATION RATE; Value: 18; Range: 0-30; Units: mm/hr; Status: F Lab Order: CRP; 04/01/16 02:33 Test: C REACTIVE PROTEIN QUANTITATIV; Value: 0.81; Range: 0.00-0.30; Abnormal: Above high normal; Units: MG/DL; Status: F Lab Order: Cardiac Marker Panel; 04/01/16 02:33 Test: CPK CREATINE PHOSPHOKINASE; Value: 32; Range: 26-192; Units: U/L; Status: F Test: CK-MB VALUE MASS; Value: 1.3; Range: 0.0-3.6; Units: NG/ML; Status: F Test: MB/CK RELATIVE INDEX; Value: 4.06; Range: < OR =4; Abnormal: Above high normal; Status: F Test: TROPONIN I; Value: < 0.02; Range: < 0.10; Units: NG/ML; Status: F Test Note: ; DIAGNOSIS CRITERIA MMB ng/ml Relative Index (RI) NON-AMI < or = 5 N/A SPEARS ZONE > 5 < or = 4 AMI > 5 > 4 Lab Order: TROPONIN; 04/01/16 06:49 Test: TROPONIN I; Value: < 0.02; Range: < 0.10; Units: NG/ML; Status: F Test Note: ; Troponin I Reference Interval for [employer] LOCI: 99th Percentile= 0.00-0.045 ng/ml Risk Stratification: <= 0.10 ng/ml Decreased Risk for Adverse Clinical Events. 0.10-1.50 ng/ml Increased Risk for Adverse Clinical Events. Evaluation of additional criterion and/or repeat testing in 2-6 hours is suggested to rule out myocardial damage. >= 1.50 ng/ml Indicative of Myocardial Injury. 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 mm11 08:41 Admission hand-off: Other: Patient at this time becomes an ER Rendon. Care transferred hs1 to Rendon MARIAN Meza. See documentation in [employer] system . 13:51 Patient left the ED. dy Signatures: Dispatcher [employer] EDAR Ignacia Herman, Reg Reg gb Burke Shepherd RN MARIAN dy Kenny Love RN RN mlStephanei Francois, DO DO mm11 Aurea Richards RN RN hs1 Nigel Hudson, CHIEF LOCK OPERATOR CHIEF LOCK OPERATOR d Charla Wiley Kim,RN RN kas2 Cesar Montgomery, CHIEF LOCK OPERATOR CHIEF LOCK OPERATOR jmv George Britt, Reg Reg pm4 Ping Lopez,RN RN mv5 MTDD
[2016-04-01 14:00] VITALS: BP 98/56
[2016-04-01] MEDS: FAMOTIDINE IV BAG 20 MG in APPROPRIATE DILUENT 1 EA IV SCH (16:47)
[2016-04-01 17:40] VITALS: BP 117/60
[2016-04-01 20:00] VITALS: BP 93/51; PULSE 59
[2016-04-02] VITALS: BP 102/57; PULSE 51
[2016-04-02] MEDS: FAMOTIDINE IV BAG 20 MG in APPROPRIATE DILUENT 1 EA IV SCH ×2 (02:05→14:00)
[2016-04-02 04:00] VITALS: BP 116/58; PULSE 63
[2016-04-02 05:31] LABS: MEAN CORPUSCULAR HEMOGLOBIN 28.7 pg (27.0-33.0); MEAN CORPUSCULAR HGB CONC 33.1 g/dl (32.0-36.5); MEAN CORPUSCULAR VOLUME 86.9 fl (80.0-96.0); RED CELL DISTRIBUTION WIDTH 13.3 % (11.5-14.5); WHITE BLOOD COUNT 11.1 K/mm3 (4.0-10.0)
[2016-04-02 05:38] LABS: ANION GAP 9 MEQ/L (8-16); BLOOD UREA NITROGEN 8 MG/DL (7-18); CALCIUM LEVEL 8.4 MG/DL (8.5-10.1); CARBON DIOXIDE LEVEL 25 MEQ/L (21-32); CHLORIDE LEVEL 113 MEQ/L (98-107); GLOMERULAR FILTRATION RATE > 60.0 (>51); GLUCOSE, FASTING 97 MG/DL (70-105); POTASSIUM SERUM 3.7 MEQ/L (3.5-5.1); SODIUM LEVEL 147 MEQ/L (136-145)
[2016-04-02 07:15] VITALS: BP 126/60
[2016-04-02] MEDS: hydrOXYzine 25 MG TAB PO SCH ×2 (08:36→20:24)
[2016-04-02] MEDS: predniSONE 20 MG TAB PO SCH (08:36)
[2016-04-02] MEDS: tiZANidine 4 MG TAB PO SCH ×3 (08:36→20:24)
[2016-04-02] MEDS ORDERED: FAMO20TA PO (10:24)
[2016-04-02] MEDS ORDERED: DELT1TAB PO (10:24)
[2016-04-02] MEDS ORDERED: INFLUENZA QUADRIVALENT PF VACCINE 0.5ML SYRINGE/VIAL (90686) IM ONE (11:00)
--- NOTE | 2016-04-02 11:08 | IPNPDOC ---
Subjective General Date Seen The patient was seen on 04/02/16. Subjective Chief Complaint/HPI The patient is a 51-year-old female admitted with a reason for visit of Angioedema. Events since last encounter lip and tongue swelling much improved however complains of bilateral soreness of the shins, no fever or chills, no chest pain or sob , no nausea or vomiting , no abdominal pain or diarrhea. Objective Physical Examination General Exam: Positive: Alert, Cooperative, No Acute Distress ENT Exam: Positive: Atraumatic, Mucous membr. moist/pink, Nares Patent, Pharynx Normal, Tongue Midline, Negative: Pharyngeal Edema Neck Exam: Negative: JVD, Lymphadenopathy, thyromegaly Chest Exam: Positive: Clear to auscultation, Normal air movement Heart Exam: Positive: Normal S1, Normal S2, Rate Normal Telemetry: Positive: Sinus Abdomen Exam: Positive: Normal bowel sounds, Soft, Negative: Tenderness Extremity Exam: Positive: Normal pulses, Tenderness (in both the shins), Negative: Clubbing, Cyanosis, Edema, Other, Swelling Assessment /Plan Problems Problems: (1) Angioedema Status: Acute Problem Text: due to lyrica. will continue with prednisone, famotidine and hydroxyzine. can give benadryl prn. (2) Spinal stenosis Status: Chronic (3) Fibromyalgia Status: Chronic Problem Text: will give tylenol. Plan/VTE VTE Prophylaxis Ordered?: Yes (TEDs) VS, I&O, 24H, Fishbone Vital Signs/I&O Vital Signs Date Time Temp Pulse Resp B/P Pulse Ox O2 Delivery O2 Flow Rate FiO2 04/02/16 07:15 97.8 61 18 126/60 98 Room Air I&O- Last 24 Hours up to 6 AM 04/02/16 06:00 Intake Total 2030 ml Output Total 2600 ml Balance -570 ml Laboratory Data 24H LABS Laboratory Tests 2 04/01/16 14:17: Troponin I < 0.02 04/01/16 22:13: Troponin I < 0.02 04/02/16 05:14: Anion Gap 9, Blood Urea Nitrogen 8, Creatinine 0.60, Sodium Level 147H, Potassium Level 3.7, Chloride Level 113H, Carbon Dioxide Level 25, Calcium Level 8.4L, Glomerular Filtration Rate > 60.0 CBC/BMP Laboratory Tests 04/02/16 05:14 Calcium Level 8.4 L, Red Blood Count 3.75 L, Mean Corpuscular Volume 86.9, Mean Corpuscular Hemoglobin 28.7, Mean Corpuscular Hemoglobin Concent 33.1, Red Cell Distribution Width 13.3 KHOI FLOYD MD Apr 02, 2016 11:08
[2016-04-02] MEDS: ACETAMINOPHEN 500 MG TAB PO SCH ×2 (11:23→20:24)
[2016-04-02 17:20] VITALS: BP 104/59
[2016-04-02 20:00] VITALS: BP 109/60
[2016-04-02] MEDS ORDERED: ACETAMINOPHEN 500 MG TAB PO SCH (21:00)
[2016-04-03 02:00] VITALS: BP 128/67
[2016-04-03] MEDS: FAMOTIDINE IV BAG 20 MG in APPROPRIATE DILUENT 1 EA IV SCH (02:16)
[2016-04-03 06:42] LABS: MEAN CORPUSCULAR HEMOGLOBIN 29.6 pg (27.0-33.0); MEAN CORPUSCULAR VOLUME 87.1 fl (80.0-96.0); RED CELL DISTRIBUTION WIDTH 13.6 % (11.5-14.5); WHITE BLOOD COUNT 9.8 K/mm3 (4.0-10.0)
[2016-04-03 07:00] LABS: ANION GAP 7 MEQ/L (8-16); BLOOD UREA NITROGEN 11 MG/DL (7-18); CALCIUM LEVEL 8.8 MG/DL (8.5-10.1); CARBON DIOXIDE LEVEL 28 MEQ/L (21-32); CHLORIDE LEVEL 111 MEQ/L (98-107); CREATININE FOR GFR 0.71 MG/DL (0.55-1.02); GLOMERULAR FILTRATION RATE > 60.0 (>51); GLUCOSE, FASTING 95 MG/DL (70-105); SODIUM LEVEL 146 MEQ/L (136-145)
[2016-04-03 08:00] VITALS: BP 128/59
[2016-04-03] MEDS: predniSONE 20 MG TAB PO SCH (08:33)
[2016-04-03] MEDS: hydrOXYzine 25 MG TAB PO SCH (08:33)
[2016-04-03] MEDS: tiZANidine 4 MG TAB PO SCH (08:33)
[2016-04-03] MEDS: ACETAMINOPHEN 500 MG TAB PO SCH (08:33)
[2016-04-03] MEDS ORDERED: INFLUENZA QUADRIVALENT PF VACCINE 0.5ML SYRINGE/VIAL (90686) IM ONE (09:00)
--- NOTE | 2016-04-03 14:52 | EDDOCDS ---
Physician Documentation [facility] Name: Michelle Toro Age: 51 yrs Sex: Female : 1965 Arrival Date: 04/01/2016 Time: 01:35 Bed 19 Private MD: Disposition: 04/01/16 05:54 Hospitalization ordered by Rivera Toth for Inpatient Admission. Preliminary diagnosis are Anaphylactic reaction due to adverse effect of correct drug or medicament properly administered, Hypotension, unspecified. - Bed requested for PCU. - Status is Inpatient Admission. dy - Condition is Stable. - Problem is an acute exacerbation. - Symptoms have improved. Historical: - Allergies: Ciprofloxacin (Rash); Latex (Rash); Neurontinanxiety; PENICILLINS (Hives); - Home Meds: 1. hydroxyzine 25 mg nightly 25mg 2 tabs po at bedtime 2. pregabalin 25 mg Oral cap bid 3. tizanidine 4 mg oral tab 1 tab every 6 hours - PMHx: Anxiety; back pain; Fibromyalgia; neck pain; Spinal Stenosis; - Social history: Smoking status: Patient states former smoker of tobacco. No barriers to communication noted, The patient speaks fluent Persian. - Family history: No immediate family members are acutely ill. - : The pt / caregiver states he / she is not on anticoagulants. Home medication list is obtained from the patient. - Exposure Risk Screening:: None identified. 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: 04/01 01:50 LMP N/A - Post-menopause kas2 Vital Signs: 01:56 BP 92 / 54; Pulse 64; Resp 18; Pulse Ox 94% on R/A; Pain 4/10; kas2 02:14 BP 87 / 54 (auto/); mv5 02:14 Pulse 68 MON; Pulse Ox 95% ; mv5 02:25 BP 94 / 54 (auto/); mv5 02:25 Pulse 74 MON; Pulse Ox 92% ; mv5 02:29 BP 103 / 55 (auto/); mv5 02:29 Pulse 72 MON; Pulse Ox 93% ; mv5 02:47 BP 97 / 55 (auto/); mv5 02:47 Pulse 78 MON; Pulse Ox 95% ; mv5 02:59 BP 94 / 53 (auto/); mv5 02:59 Pulse 76 MON; Pulse Ox 98% ; mv5 03:14 BP 84 / 51 (auto/); mv5 03:14 Pulse 74 MON; Pulse Ox 99% ; mv5 03:23 BP 92 / 52 (auto/); mv5 03:23 Pulse 74 MON; Pulse Ox 99% ; mv5 03:29 BP 80 / 50 (auto/); mv5 03:29 Pulse 72 MON; Pulse Ox 98% ; mv5 03:34 BP 88 / 53 (auto/); mv5 03:34 Pulse 70 MON; Pulse Ox 98% ; mv5 03:44 BP 80 / 51 (auto/); mv5 03:44 Pulse 68 MON; Pulse Ox 98% ; mv5 03:46 BP 86 / 53 (auto/); mv5 03:46 Pulse 76 MON; Pulse Ox 99% ; mv5 03:59 BP 79 / 52 (auto/); mv5 03:59 Pulse 68 MON; Pulse Ox 99% ; mv5 04:03 BP 92 / 51 (auto/); mv5 04:03 Pulse 72 MON; Pulse Ox 99% ; mv5 04:14 BP 83 / 52 (auto/); mv5 04:14 Pulse 68 MON; Pulse Ox 98% ; mv5 04:29 BP 81 / 52 (auto/); mv5 04:29 Pulse 68 MON; Pulse Ox 99% ; mv5 05:03 BP 87 / 51 (auto/); mv5 05:03 Pulse 66 MON; Pulse Ox 98% ; mv5 05:14 BP 90 / 54 (auto/); mv5 05:14 Pulse 68 MON; Pulse Ox 98% ; mv5 05:29 BP 83 / 54 (auto/); mv5 05:29 Pulse 64 MON; Pulse Ox 99% ; mv5 05:37 BP 89 / 55 (auto/); mv5 05:37 Pulse 72 MON; Pulse Ox 98% ; mv5 05:44 BP 91 / 58 (auto/); mv5 05:44 Pulse 74 MON; Pulse Ox 98% ; mv5 05:59 BP 94 / 57 (auto/); mv5 05:59 Pulse 70 MON; Pulse Ox 98% ; mv5 06:14 BP 88 / 52 (auto/); mv5 06:14 Pulse 70 MON; Pulse Ox 98% ; mv5 06:35 BP 103 / 57 (auto/); mv5 06:37 Pulse 70 MON; Pulse Ox 92% ; mv5 07:05 Temp 96.8(O); jrd 07:05 BP 89 / 54 (auto/); mv5 07:05 Pulse 68 MON; Pulse Ox 96% ; mv5 07:34 Pulse 96 MON; Pulse Ox 94% ; hs1 07:35 BP 108 / 58 (auto/); hs1 07:35 BP 108 / 58; Pulse 97; Resp 18; Pulse Ox 94% on R/A; Pain 0/10; hs1 08:23 Pulse 92 MON; Pulse Ox 94% ; hs1 08:24 BP 103 / 68 (auto/); hs1 MDM: 02:02 IV Saline Lock ordered. mm11 02:02 NS 0.9% 1000 ml IV at bolus once ordered. mm11 02:02 Solu-MEDROL 125 mg IVP once ordered. mm11 02:02 diphenhydrAMINE 50 mg IVP once ordered. mm11 02:02 Famotidine 20 mg IVPB once over 30 mins; dilute in 50mL of NS ordered. mm11 02:02 EPINEPHrine (1:1000) 0.3 ml IM once; Deep IM ordered. mm11 02:14 Licensed Customs Broker/Pulse Ox/q 30 min VS ordered. mm11 02:19 The patient was assigned to Observation Status due to the intensity of required mm11 treatment, and remained under my care. 02:28 Ondansetron 4 mg IVP once ordered. mm11 02:48 Financial registration complete. pm4 02:49 [facility] Payment Agreement was scanned into [employer] and attached to record. pm4 03:25 NS 0.9% 1000 ml IV at bolus once ordered. mm11 03:25 CBC with Diff Ordered. EDMS 03:25 BMP Ordered. EDMS 03:25 ESR Ordered. EDMS 03:25 CRP Ordered. EDMS 03:59 CBC with Diff Reviewed. mm11 03:59 BMP Reviewed. mm11 03:59 CRP Reviewed. mm11 04:05 ECG WITH READING ER PHYS+CARDIAG ordered. EDMS 04:06 Cardiac Marker Panel Ordered. EDMS 04:32 CBC with Diff Reviewed. mm11 04:32 Cardiac Marker Panel Reviewed. mm11 04:32 ESR Reviewed. mm11 05:44 LR Solution 1000 ml IV at bolus once ordered. mm11 06:26 TROPONIN Ordered. EDMS 06:26 TROPONIN Ordered. EDMS 06:26 TROPONIN Ordered. EDMS 06:27 PHYSICAL THERAPY EVAL & TREAT ordered. EDMS 06:28 Admission / Observation Status ordered. EDMS 06:28 REGULAR DIET ordered. EDMS 06:53 Oral Temp ordered. ml 09:56 T-Sheet-- Draft Copy was scanned into [employer] and attached to record. gb 17:38 ECG/EKG was scanned into [employer] and attached to record. gb Administered Medications: 02:36 Drug: Ondansetron 4 mg [ondansetron HCl 2 mg/mL intravenous solution (2 mL)] Route: mv5 IVP; Site: right hand; 03:26 Follow up: Response: Nausea is decreased; No Adverse Reaction mv5 02:37 Drug: diphenhydrAMINE 50 mg [diphenhydramine 50 mg/mL injection solution (1 mL)] Route: mv5 IVP; Site: right hand; 03:26 Follow up: Response: No Adverse Reaction mv5 02:37 Drug: Famotidine 20 mg [famotidine 10 mg/mL intravenous solution] Route: IVPB; Infused mv5 Over: 30 mins; Site: right hand; 02:37 Drug: EPINEPHrine (1:1000) 0.3 ml [epinephrine HCl (PF) 1 mg/mL (1 mL) intravenous mv5 solution (0.3 mL)] Route: IM; Site: right deltoid; 03:26 Follow up: Response: No Adverse Reaction mv5 02:38 Drug: NS 0.9% 1000 ml [sodium chloride 0.9 % intravenous solution] Route: IV; Rate: mv5 bolus; Site: right hand; 02:38 Drug: Solu-MEDROL 125 mg [Solu-Medrol 500 mg intravenous solution (125 mg)] Route: IVP; mv5 Site: right hand; 03:26 Follow up: Response: No Adverse Reaction mv5 03:25 Drug: NS 0.9% 1000 ml [sodium chloride 0.9 % intravenous solution] Route: IV; Rate: mv5 bolus; Site: right hand; 05:55 Drug: LR 1000 ml [lactated ringers intravenous solution] Route: IV; Rate: bolus; Site: mv5 right hand; 07:35 Follow up: BP 108 / 58; Pulse 97 bpm; Resp 18 bpm; Pulse Ox 94% RA; Pain 0/10 Adult hs1 07:35 Follow up: IV Status: Completed infusion; IV Intake: 1000ml hs1 Signatures: Dispatcher [employer] Vera Washington MD MD ml Miranda Garza, Marine Consultant Unit deg Ignacia Herman, Reg Reg gb Burke Shepherd, RN RN dy Nadeem Peña, DO DO mm11 Elisa Buenrostro RN RN kas2 George Britt, Reg Reg pm4 Ping Lopez RN RN mv5 Aurea Richards RN hs1 The chart was reviewed and I authenticate all verbal orders and agree with the evaluation and treatment provided.Attachments: 02:49 [facility] Payment Agreement pm4 09:56 T-Sheet-- Draft Copy gb 17:38 ECG/EKG gb Chart Complete MTDD
--- NOTE | 2016-04-03 14:52 | EDDOCDS ---
Physician Documentation [facility] Name: Michelle Toro Age: 51 yrs Sex: Female : 1965 Arrival Date: 04/01/2016 Time: 01:35 Bed 19 Private MD: Disposition: 04/01/16 05:54 Hospitalization ordered by Rivera Toth for Inpatient Admission. Preliminary diagnosis are Anaphylactic reaction due to adverse effect of correct drug or medicament properly administered, Hypotension, unspecified. - Bed requested for PCU. - Status is Inpatient Admission. dy - Condition is Stable. - Problem is an acute exacerbation. - Symptoms have improved. Historical: - Allergies: Ciprofloxacin (Rash); Latex (Rash); Neurontinanxiety; PENICILLINS (Hives); - Home Meds: 1. hydroxyzine 25 mg nightly 25mg 2 tabs po at bedtime 2. pregabalin 25 mg Oral cap bid 3. tizanidine 4 mg oral tab 1 tab every 6 hours - PMHx: Anxiety; back pain; Fibromyalgia; neck pain; Spinal Stenosis; - Social history: Smoking status: Patient states former smoker of tobacco. No barriers to communication noted, The patient speaks fluent Hebrew. - Family history: No immediate family members are acutely ill. - : The pt / caregiver states he / she is not on anticoagulants. Home medication list is obtained from the patient. - Exposure Risk Screening:: None identified. 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 LMP N/A - Post-menopause kas2 Vital Signs: 01:56 BP 92 / 54; Pulse 64; Resp 18; Pulse Ox 94% on R/A; Pain 4/10; kas2 02:14 BP 87 / 54 (auto/); mv5 02:14 Pulse 68 MON; Pulse Ox 95% ; mv5 02:25 BP 94 / 54 (auto/); mv5 02:25 Pulse 74 MON; Pulse Ox 92% ; mv5 02:29 BP 103 / 55 (auto/); mv5 02:29 Pulse 72 MON; Pulse Ox 93% ; mv5 02:47 BP 97 / 55 (auto/); mv5 02:47 Pulse 78 MON; Pulse Ox 95% ; mv5 02:59 BP 94 / 53 (auto/); mv5 02:59 Pulse 76 MON; Pulse Ox 98% ; mv5 03:14 BP 84 / 51 (auto/); mv5 03:14 Pulse 74 MON; Pulse Ox 99% ; mv5 03:23 BP 92 / 52 (auto/); mv5 03:23 Pulse 74 MON; Pulse Ox 99% ; mv5 03:29 BP 80 / 50 (auto/); mv5 03:29 Pulse 72 MON; Pulse Ox 98% ; mv5 03:34 BP 88 / 53 (auto/); mv5 03:34 Pulse 70 MON; Pulse Ox 98% ; mv5 03:44 BP 80 / 51 (auto/); mv5 03:44 Pulse 68 MON; Pulse Ox 98% ; mv5 03:46 BP 86 / 53 (auto/); mv5 03:46 Pulse 76 MON; Pulse Ox 99% ; mv5 03:59 BP 79 / 52 (auto/); mv5 03:59 Pulse 68 MON; Pulse Ox 99% ; mv5 04:03 BP 92 / 51 (auto/); mv5 04:03 Pulse 72 MON; Pulse Ox 99% ; mv5 04:14 BP 83 / 52 (auto/); mv5 04:14 Pulse 68 MON; Pulse Ox 98% ; mv5 04:29 BP 81 / 52 (auto/); mv5 04:29 Pulse 68 MON; Pulse Ox 99% ; mv5 05:03 BP 87 / 51 (auto/); mv5 05:03 Pulse 66 MON; Pulse Ox 98% ; mv5 05:14 BP 90 / 54 (auto/); mv5 05:14 Pulse 68 MON; Pulse Ox 98% ; mv5 05:29 BP 83 / 54 (auto/); mv5 05:29 Pulse 64 MON; Pulse Ox 99% ; mv5 05:37 BP 89 / 55 (auto/); mv5 05:37 Pulse 72 MON; Pulse Ox 98% ; mv5 05:44 BP 91 / 58 (auto/); mv5 05:44 Pulse 74 MON; Pulse Ox 98% ; mv5 05:59 BP 94 / 57 (auto/); mv5 05:59 Pulse 70 MON; Pulse Ox 98% ; mv5 06:14 BP 88 / 52 (auto/); mv5 06:14 Pulse 70 MON; Pulse Ox 98% ; mv5 06:35 BP 103 / 57 (auto/); mv5 06:37 Pulse 70 MON; Pulse Ox 92% ; mv5 07:05 Temp 96.8(O); jrd 07:05 BP 89 / 54 (auto/); mv5 07:05 Pulse 68 MON; Pulse Ox 96% ; mv5 07:34 Pulse 96 MON; Pulse Ox 94% ; hs1 07:35 BP 108 / 58 (auto/); hs1 07:35 BP 108 / 58; Pulse 97; Resp 18; Pulse Ox 94% on R/A; Pain 0/10; hs1 08:23 Pulse 92 MON; Pulse Ox 94% ; hs1 08:24 BP 103 / 68 (auto/); hs1 MDM: 02:02 IV Saline Lock ordered. mm11 02:02 NS 0.9% 1000 ml IV at bolus once ordered. mm11 02:02 Solu-MEDROL 125 mg IVP once ordered. mm11 02:02 diphenhydrAMINE 50 mg IVP once ordered. mm11 02:02 Famotidine 20 mg IVPB once over 30 mins; dilute in 50mL of NS ordered. mm11 02:02 EPINEPHrine (1:1000) 0.3 ml IM once; Deep IM ordered. mm11 02:14 Automated Logistics Specialist/Pulse Ox/q 30 min VS ordered. mm11 02:19 The patient was assigned to Observation Status due to the intensity of required mm11 treatment, and remained under my care. 02:28 Ondansetron 4 mg IVP once ordered. mm11 02:48 Financial registration complete. pm4 02:49 [facility] Payment Agreement was scanned into [employer] and attached to record. pm4 03:25 NS 0.9% 1000 ml IV at bolus once ordered. mm11 03:25 CBC with Diff Ordered. EDMS 03:25 BMP Ordered. EDMS 03:25 ESR Ordered. EDMS 03:25 CRP Ordered. EDMS 03:59 CBC with Diff Reviewed. mm11 03:59 BMP Reviewed. mm11 03:59 CRP Reviewed. mm11 04:05 ECG WITH READING ER PHYS+CARDIAG ordered. EDMS 04:06 Cardiac Marker Panel Ordered. EDMS 04:32 CBC with Diff Reviewed. mm11 04:32 Cardiac Marker Panel Reviewed. mm11 04:32 ESR Reviewed. mm11 05:44 LR Solution 1000 ml IV at bolus once ordered. mm11 06:26 TROPONIN Ordered. EDMS 06:26 TROPONIN Ordered. EDMS 06:26 TROPONIN Ordered. EDMS 06:27 PHYSICAL THERAPY EVAL & TREAT ordered. EDMS 06:28 Admission / Observation Status ordered. EDMS 06:28 REGULAR DIET ordered. EDMS 06:53 Oral Temp ordered. ml 09:56 T-Sheet-- Draft Copy was scanned into [employer] and attached to record. gb 17:38 ECG/EKG was scanned into [employer] and attached to record. gb Administered Medications: 02:36 Drug: Ondansetron 4 mg [ondansetron HCl 2 mg/mL intravenous solution (2 mL)] Route: mv5 IVP; Site: right hand; 03:26 Follow up: Response: Nausea is decreased; No Adverse Reaction mv5 02:37 Drug: diphenhydrAMINE 50 mg [diphenhydramine 50 mg/mL injection solution (1 mL)] Route: mv5 IVP; Site: right hand; 03:26 Follow up: Response: No Adverse Reaction mv5 02:37 Drug: Famotidine 20 mg [famotidine 10 mg/mL intravenous solution] Route: IVPB; Infused mv5 Over: 30 mins; Site: right hand; 02:37 Drug: EPINEPHrine (1:1000) 0.3 ml [epinephrine HCl (PF) 1 mg/mL (1 mL) intravenous mv5 solution (0.3 mL)] Route: IM; Site: right deltoid; 03:26 Follow up: Response: No Adverse Reaction mv5 02:38 Drug: NS 0.9% 1000 ml [sodium chloride 0.9 % intravenous solution] Route: IV; Rate: mv5 bolus; Site: right hand; 02:38 Drug: Solu-MEDROL 125 mg [Solu-Medrol 500 mg intravenous solution (125 mg)] Route: IVP; mv5 Site: right hand; 03:26 Follow up: Response: No Adverse Reaction mv5 03:25 Drug: NS 0.9% 1000 ml [sodium chloride 0.9 % intravenous solution] Route: IV; Rate: mv5 bolus; Site: right hand; 05:55 Drug: LR 1000 ml [lactated ringers intravenous solution] Route: IV; Rate: bolus; Site: mv5 right hand; 07:35 Follow up: BP 108 / 58; Pulse 97 bpm; Resp 18 bpm; Pulse Ox 94% RA; Pain 0/10 Adult hs1 07:35 Follow up: IV Status: Completed infusion; IV Intake: 1000ml hs1 Signatures: Dispatcher [employer] Vera Washington MD MD ml Miranda Garza, Road Design Draftsperson Unit deg Ignacia Herman, Reg Reg gb Burke Shepherd, RN RN dy Nadeem Peña, DO DO mm11 Elisa Buenrostro RN RN kas2 George Britt, Reg Reg pm4 Ping Lopez RN RN mv5 Aurea Richards RN hs1 The chart was reviewed and I authenticate all verbal orders and agree with the evaluation and treatment provided.Attachments: 02:49 [facility] Payment Agreement pm4 09:56 T-Sheet-- Draft Copy gb 17:38 ECG/EKG gb Chart Complete MTDD
--- NOTE | 2016-04-03 14:53 | EDDOCDS ---
Nurse's Notes [facility] Name: Katherine Toro Age: 51 yrs Sex: Female : 1965 Arrival Date: 04/01/2016 Time: 01:35 Bed 19 Private MD: Diagnosis: Anaphylactic reaction due to adverse effect of correct drug or medicament properly administered;Hypotension, unspecified Presentation: 04/01 01:45 Presenting complaint: Patient states: Patient states her physician increased her dose kas2 of lyrica on Mar 30 and she has noticed today her lips are swelling and itching. States it is harder to swallow. Patient able to swallow secretions. Complaining of chest pain and shortness of breath. Onset: The symptoms/episode began/occurred yesterday. The patient has a history of a previous allergic reaction. The previous reaction involved swelling. The previous reaction involved shortness of breath. Anaphylaxis evaluation, the patient reports or I have noted the following symptoms which indicate a significant risk of anaphylaxis: chest pain lump in the throat which may suggest laryngeal edema shortness of breath. Adult Sepsis Screening: The patient does not have new or worsening altered mentation. Patient's respiratory rate is less than 22. Systolic blood pressure is greater than 100. Patient has a qSOFA score of 0- Negative Sepsis Screen. Suicide/Homicide risk assessment- the patient denies having any suicidal and/or homicidal ideations and does not present with any other emotional, behavioral or mental health complaints. Status: retired . Transition of care: patient was not received from another setting of care. 01:45 Acuity: CASA Level 2 kas2 01:45 Method Of Arrival: Walkin/Carried/Asstd kas2 Triage Assessment: 01:50 General: Appears in no apparent distress, uncomfortable, well nourished, well groomed, kas2 Behavior is appropriate for age, cooperative. Pain: Location: chest Pain currently is 6 out of 10 on a pain scale. Pt Declines HIV testing. Neurological: Level of Consciousness is awake, alert, Oriented to person, place, time. EENT:. Cardiovascular: Capillary refill < 3 seconds Heart tones S1 S2 present. Respiratory: Airway is patent Respiratory effort is even, unlabored, Respiratory pattern is regular, symmetrical, Reports shortness of breath at rest. Derm: Skin is intact, Skin is dry, Skin is pink, warm & dry. Skin temperature is warm. Derm: Patient states her lips are swollen and she feels her throat is closing up. Swollen area noted on lips. Musculoskeletal: Reports Denies. ASSEMBLER: 01:50 LMP N/A - Post-menopause kas2 Historical: - Allergies: Ciprofloxacin (Rash); Latex (Rash); Neurontinanxiety; PENICILLINS (Hives); - Home Meds: 1. hydroxyzine 25 mg nightly 25mg 2 tabs po at bedtime 2. pregabalin 25 mg Oral cap bid 3. tizanidine 4 mg oral tab 1 tab every 6 hours - PMHx: Anxiety; back pain; Fibromyalgia; neck pain; Spinal Stenosis; - Social history: Smoking status: Patient states former smoker of tobacco. No barriers to communication noted, The patient speaks fluent Kazakh. - Family history: No immediate family members are acutely ill. - : The pt / caregiver states he / she is not on anticoagulants. Home medication list is obtained from the patient. - Exposure Risk Screening:: None identified. Screenin:50 Screening information is obtained from the patient. Fall risk: No risks identified. mv5 Assistance ADL's: requires no assistance with activities of daily living. Abuse/DV Screen: The patient / caregiver reports he/she is: not in a situation that causes fear, pain or injury. Nutritional screening: No deficits noted. Advance Directives: There is no active DNR order. home support is adequate. Assessment: 01:50 General: Appears in no apparent distress, Behavior is anxious. Neurological: Level of mv5 Consciousness is awake, alert, Oriented to person, place, time. Cardiovascular: Capillary refill < 3 seconds Heart tones S1 S2 present Rhythm is regular. Respiratory: Airway is patent Respiratory effort is even, unlabored, Respiratory pattern is regular, symmetrical, Breath sounds are clear bilaterally. Derm: Skin is pink, warm & dry. 03:00 General: Appears in no apparent distress, Behavior is cooperative, drowsy. General: mv5 Appears to be sleeping. Neurological: Level of Consciousness is wakes easily to voice.. Cardiovascular: Rhythm is sinus rhythm No ectopy. Respiratory: Airway is patent Respiratory effort is even, unlabored, relaxed, Respiratory pattern is regular, symmetrical, 2LNC applied for sp02 89-90% on RA. Pt encouraged to take deep breaths periodically. Derm: Skin is pink, warm & dry. 03:49 General: Appears uncomfortable. Neurological: Level of Consciousness is awake, alert, mv5 Oriented to person, place, time. Cardiovascular: Rhythm is sinus rhythm No ectopy. Cardiovascular: Chest pain is described as pt c/o discomfort in R/L chest, non radiating. MD aware.. quality is pressure. Respiratory: Airway is patent Respiratory effort is even, unlabored, Respiratory pattern is regular, symmetrical. Derm: Skin is pink, warm & dry. 04:36 General: Appears in no apparent distress, to be sleeping. Cardiovascular: Rhythm is mv5 sinus rhythm No ectopy. Respiratory: Airway is patent Respiratory effort is even, unlabored, relaxed, Respiratory pattern is regular, symmetrical. Derm: Skin is pink, warm & dry. 05:35 General: Appears in no apparent distress, to be sleeping. Cardiovascular: Rhythm is mv5 sinus rhythm. Respiratory: Airway is patent Respiratory effort is even, unlabored, Respiratory pattern is regular, symmetrical, Breath sounds are clear. Derm: Skin is pink, warm & dry. 06:40 General: Appears in no apparent distress, Behavior is cooperative, pleasant, Pt mv5 assisted to restroom and returned safely. Pt ambulates with stand by assist and steady gait.. Neurological: Level of Consciousness is awake, alert, Oriented to person, place, time. Cardiovascular: Rhythm is sinus rhythm No ectopy. Respiratory: Airway is patent Respiratory effort is even, unlabored, Respiratory pattern is regular, symmetrical. Derm: Skin is pink, warm & dry. 07:40 General: Appears in no apparent distress, Behavior is cooperative, patient states she hs1 is feeling much better than during the night. Patient has eaten breakfast and reports tingling in lips has decreased. . Respiratory: Airway is patent Respiratory effort is even, unlabored, Respiratory pattern is regular, symmetrical, Breath sounds are clear bilaterally. Derm: Skin is pink, warm & dry. mild redness and swelling around lips. Patient reports very much improved since her arrival last night. Vital Signs: 01:56 BP 92 / 54; Pulse 64; Resp 18; Pulse Ox 94% on R/A; Pain 4/10; kas2 02:14 BP 87 / 54 (auto/); mv5 02:14 Pulse 68 MON; Pulse Ox 95% ; mv5 02:25 BP 94 / 54 (auto/); mv5 02:25 Pulse 74 MON; Pulse Ox 92% ; mv5 02:29 BP 103 / 55 (auto/); mv5 02:29 Pulse 72 MON; Pulse Ox 93% ; mv5 02:47 BP 97 / 55 (auto/); mv5 02:47 Pulse 78 MON; Pulse Ox 95% ; mv5 02:59 BP 94 / 53 (auto/); mv5 02:59 Pulse 76 MON; Pulse Ox 98% ; mv5 03:14 BP 84 / 51 (auto/); mv5 03:14 Pulse 74 MON; Pulse Ox 99% ; mv5 03:23 BP 92 / 52 (auto/); mv5 03:23 Pulse 74 MON; Pulse Ox 99% ; mv5 03:29 BP 80 / 50 (auto/); mv5 03:29 Pulse 72 MON; Pulse Ox 98% ; mv5 03:34 BP 88 / 53 (auto/); mv5 03:34 Pulse 70 MON; Pulse Ox 98% ; mv5 03:44 BP 80 / 51 (auto/); mv5 03:44 Pulse 68 MON; Pulse Ox 98% ; mv5 03:46 BP 86 / 53 (auto/); mv5 03:46 Pulse 76 MON; Pulse Ox 99% ; mv5 03:59 BP 79 / 52 (auto/); mv5 03:59 Pulse 68 MON; Pulse Ox 99% ; mv5 04:03 BP 92 / 51 (auto/); mv5 04:03 Pulse 72 MON; Pulse Ox 99% ; mv5 04:14 BP 83 / 52 (auto/); mv5 04:14 Pulse 68 MON; Pulse Ox 98% ; mv5 04:29 BP 81 / 52 (auto/); mv5 04:29 Pulse 68 MON; Pulse Ox 99% ; mv5 05:03 BP 87 / 51 (auto/); mv5 05:03 Pulse 66 MON; Pulse Ox 98% ; mv5 05:14 BP 90 / 54 (auto/); mv5 05:14 Pulse 68 MON; Pulse Ox 98% ; mv5 05:29 BP 83 / 54 (auto/); mv5 05:29 Pulse 64 MON; Pulse Ox 99% ; mv5 05:37 BP 89 / 55 (auto/); mv5 05:37 Pulse 72 MON; Pulse Ox 98% ; mv5 05:44 BP 91 / 58 (auto/); mv5 05:44 Pulse 74 MON; Pulse Ox 98% ; mv5 05:59 BP 94 / 57 (auto/); mv5 05:59 Pulse 70 MON; Pulse Ox 98% ; mv5 06:14 BP 88 / 52 (auto/); mv5 06:14 Pulse 70 MON; Pulse Ox 98% ; mv5 06:35 BP 103 / 57 (auto/); mv5 06:37 Pulse 70 MON; Pulse Ox 92% ; mv5 07:05 Temp 96.8(O); jrd 07:05 BP 89 / 54 (auto/); mv5 07:05 Pulse 68 MON; Pulse Ox 96% ; mv5 07:34 Pulse 96 MON; Pulse Ox 94% ; hs1 07:35 BP 108 / 58 (auto/); hs1 07:35 BP 108 / 58; Pulse 97; Resp 18; Pulse Ox 94% on R/A; Pain 0/10; hs1 08:23 Pulse 92 MON; Pulse Ox 94% ; hs1 08:24 BP 103 / 68 (auto/); hs1 Vitals: 01:50 Log In Time: April 01, 2016 at 01:45. [facility] ED Course: 01:37 Patient visited by Charla Wiley. gjb 01:37 Patient moved to Waiting gjb 01:44 Ping Lopez RN is Primary Nurse. kas2 01:44 Patient moved to 5 kas2 01:48 Triage Initiated kas2 01:49 Stephanie Peña DO is Attending Physician. mm11 01:49 Patient visited by Stephanie Peña DO. mm11 01:50 The patient / caregiver is instructed regarding the plan of care and ED course. mv5 01:56 Patient visited by Elisa Buenrostro RN. kas2 01:57 Patient visited by Elisa Buenrostro RN. kas2 02:01 Patient visited by Stephanie Peña DO. mm11 02:20 Patient moved to OBSERVATION mm11 02:38 Inserted saline lock: 20 gauge in right hand and blood collected. The patient tolerated mv5 the procedure well. 02:39 Inserted saline lock: 20 gauge in left forearm. mv5 02:49 [facility] Payment Agreement was scanned into [employer] and attached to record. pm4 04:48 Patient visited by Cesar Montgomery PCA. jmv 04:48 EKG done. (by ED staff). Reviewed by Stephanie Peña DO. jmv 05:53 Rivera Toth is Hospitalizing Provider. mm11 07:28 Primary Nurse role handed off by Ping Lopez,MARIAN mlb1 08:01 Patient moved to Admit Hold dy 08:03 Patient visited by Aurea Richards, MARIAN. hs1 08:27 Aurea Richards, MARIAN is Primary Nurse. hs1 08:40 Patient moved to 19 hs1 08:42 No procedures done that require assistance. hs1 09:56 T-Sheet-- Draft Copy was scanned into [employer] and attached to record. gb 13:27 EKG-ADULT Returned. EDMS 17:38 ECG/EKG was scanned into [employer] and attached to record. gb Administered Medications: 02:36 Drug: Ondansetron 4 mg [ondansetron HCl 2 mg/mL intravenous solution (2 mL)] Route: mv5 IVP; Site: right hand; 03:26 Follow up: Response: Nausea is decreased; No Adverse Reaction mv5 02:37 Drug: diphenhydrAMINE 50 mg [diphenhydramine 50 mg/mL injection solution (1 mL)] Route: mv5 IVP; Site: right hand; 03:26 Follow up: Response: No Adverse Reaction mv5 02:37 Drug: Famotidine 20 mg [famotidine 10 mg/mL intravenous solution] Route: IVPB; Infused mv5 Over: 30 mins; Site: right hand; 02:37 Drug: EPINEPHrine (1:1000) 0.3 ml [epinephrine HCl (PF) 1 mg/mL (1 mL) intravenous mv5 solution (0.3 mL)] Route: IM; Site: right deltoid; 03:26 Follow up: Response: No Adverse Reaction mv5 02:38 Drug: NS 0.9% 1000 ml [sodium chloride 0.9 % intravenous solution] Route: IV; Rate: mv5 bolus; Site: right hand; 02:38 Drug: Solu-MEDROL 125 mg [Solu-Medrol 500 mg intravenous solution (125 mg)] Route: IVP; mv5 Site: right hand; 03:26 Follow up: Response: No Adverse Reaction mv5 03:25 Drug: NS 0.9% 1000 ml [sodium chloride 0.9 % intravenous solution] Route: IV; Rate: mv5 bolus; Site: right hand; 05:55 Drug: LR 1000 ml [lactated ringers intravenous solution] Route: IV; Rate: bolus; Site: mv5 right hand; 07:35 Follow up: BP 108 / 58; Pulse 97 bpm; Resp 18 bpm; Pulse Ox 94% RA; Pain 0/10 Adult hs1 07:35 Follow up: IV Status: Completed infusion; IV Intake: 1000ml hs1 Intake: 07:35 IV: 1000.00ml; Total: 1000.00ml. hs1 Order Results: Lab Order: CBC with Diff; SPEC'M 04/01/16 02:33 Test: WHITE BLOOD COUNT; Value: 10.4; Range: 4.0-10.0; Abnormal: Above high normal; Units: K/mm3; Status: F Test: RED BLOOD COUNT; Value: 3.96; Range: 4.00-5.40; Abnormal: Below low normal; Units: M/mm3; Status: F Test: HEMOGLOBIN; Value: 11.4; Range: 12.0-16.0; Abnormal: Below low normal; Units: g/dl; Status: F Test: HEMATOCRIT; Value: 34.5; Range: 36.0-47.0; Abnormal: Below low normal; Units: %; Status: F Test: MEAN CORPUSCULAR VOLUME; Value: 87.2; Range: 80.0-96.0; Units: fl; Status: F Test: MEAN CORPUSCULAR HEMOGLOBIN; Value: 28.7; Range: 27.0-33.0; Units: pg; Status: F Test: MEAN CORPUSCULAR HGB CONC; Value: 32.9; Range: 32.0-36.5; Units: g/dl; Status: F Test: RED CELL DISTRIBUTION WIDTH; Value: 13.3; Range: 11.5-14.5; Units: %; Status: F Test: PLATELET COUNT, AUTOMATED; Value: 396; Range: 150-450; Units: k/mm3; Status: F Test: NEUTROPHILS %; Value: 48.5; Range: 36.0-66.0; Units: %; Status: F Test: LYMPH %; Value: 42.4; Range: 24.0-44.0; Units: %; Status: F Test: MONO %; Value: 3.9; Range: 0.0-5.0; Units: %; Status: F Test: EOS %; Value: 3.2; Range: 0.0-3.0; Abnormal: Above high normal; Units: %; Status: F Test: BASO %; Value: 0.3; Range: 0.0-1.0; Units: %; Status: F Test: LARGE UNSTAINED CELL %; Value: 1.8; Range: 0.0-4.0; Units: %; Status: F Test: NEUTROPHILS #; Value: 5.1; Range: 1.8-7.7; Units: K/mm3; Status: F Test: LYMPH #; Value: 4.4; Range: 1.5-4.5; Units: K/mm3; Status: F Test: MONO #; Value: 0.4; Range: 0.0-0.8; Units: K/mm3; Status: F Test: EOS #; Value: 0.3; Range: 0.0-0.50; Units: K/mm3; Status: F Test: BASO #; Value: 0.0; Range: 0.0-0.2; Units: K/mm3; Status: F Test: LARGE UNSTAINED CELL #; Value: 0.2; Range: 0.0-0.4; Units: K/mm3; Status: F Lab Order: [facility]; SPEC'M 04/01/16 02:33 Test: GLUCOSE, FASTING; Value: 120; Range: 70-105; Abnormal: Above high normal; Units: MG/DL; Status: F Test: BLOOD UREA NITROGEN; Value: 14; Range: 7-18; Units: MG/DL; Status: F Test: CREATININE FOR GFR; Value: 0.69; Range: 0.55-1.02; Units: MG/DL; Status: F Test: GLOMERULAR FILTRATION RATE; Value: > 60.0; Range: >51; Status: F Test: SODIUM LEVEL; Value: 144; Range: 136-145; Units: MEQ/L; Status: F Test: POTASSIUM SERUM; Value: 3.7; Range: 3.5-5.1; Units: MEQ/L; Status: F Test: CHLORIDE LEVEL; Value: 108; Range: 98-107; Abnormal: Above high normal; Units: MEQ/L; Status: F Test: CARBON DIOXIDE LEVEL; Value: 27; Range: 21-32; Units: MEQ/L; Status: F Test: ANION GAP; Value: 9; Range: 8-16; Units: MEQ/L; Status: F Test: CALCIUM LEVEL; Value: 8.1; Range: 8.5-10.1; Abnormal: Below low normal; Units: MG/DL; Status: F Test Note: ; Units are mL/min/1.73 m2 Chronic Kidney Disease Staging per NKF: Stage I & II GFR >=60 Normal to Mildly Decreased Stage III GFR 30-59 Moderately Decreased Stage IV GFR 15-29 Severely Decreased Stage V GFR <15 Very Little GFR Left ESRD GFR <15 on ASSISTANT BRANCH MANAGER Lab Order: ESR; [facility]04/01/16 02:33 Test: ERYTHROCYTE SEDIMENTATION RATE; Value: 18; Range: 0-30; Units: mm/hr; Status: F Lab Order: CRP; [facility]04/01/16 02:33 Test: C REACTIVE PROTEIN QUANTITATIV; Value: 0.81; Range: 0.00-0.30; Abnormal: Above high normal; Units: MG/DL; Status: F Lab Order: Cardiac Marker Panel; [facility]04/01/16 02:33 Test: CPK CREATINE PHOSPHOKINASE; Value: 32; Range: 26-192; Units: U/L; Status: F Test: CK-MB VALUE MASS; Value: 1.3; Range: 0.0-3.6; Units: NG/ML; Status: F Test: MB/CK RELATIVE INDEX; Value: 4.06; Range: < OR =4; Abnormal: Above high normal; Status: F Test: TROPONIN I; Value: < 0.02; Range: < 0.10; Units: NG/ML; Status: F Test Note: ; DIAGNOSIS CRITERIA MMB ng/ml Relative Index (RI) NON-AMI < or = 5 N/A SPEARS ZONE > 5 < or = 4 AMI > 5 > 4 Lab Order: TROPONIN; [facility]04/01/16 06:49 Test: TROPONIN I; Value: < 0.02; Range: < 0.10; Units: NG/ML; Status: F Test Note: ; Troponin I Reference Interval for [employer] LOCI: 99th Percentile= 0.00-0.045 ng/ml Risk Stratification: <= 0.10 ng/ml Decreased Risk for Adverse Clinical Events. 0.10-1.50 ng/ml Increased Risk for Adverse Clinical Events. Evaluation of additional criterion and/or repeat testing in 2-6 hours is suggested to rule out myocardial damage. >= 1.50 ng/ml Indicative of Myocardial Injury. 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 mm11 08:41 Admission hand-off: Other: Patient at this time becomes an ER Rendon. Care transferred hs1 to Rendon MARIAN Meza. See documentation in [employer] system . 13:51 Patient left the ED. dy Signatures: Dispatcher [employer] EDIN Ignacia Herman, Reg Reg gb Burke Shepherd, RN MARIAN dy Kenny Love RN RN mlb1 Stephanie Peña, DO DO mm11 Aurea Richards RN RN hs1 Nigel Hudson, INSULATOR CUTTER AND FORMER INSULATOR CUTTER AND FORMER Charla Barillas Kim,RN RN kas2 Cesar Montgomery, INSULATOR CUTTER AND FORMER INSULATOR CUTTER AND FORMER George Naylor, Reg Reg pm4 Pnig Lopez,RN RN mv5 Chart Complete MTDD
--- NOTE | 2016-04-03 15:54 | DSES ---
DATE OF ADMISSION: 04/01/2016 DATE OF DISCHARGE: 04/03/2016 PRIMARY CARE PROVIDER: Captain Nadeem [facility] at [facility]. DISCHARGE DIAGNOSES: 1. Angioedema related to Lyrica use. 2. Fibromyalgia. 3. Spinal canal stenosis. DISCHARGE MEDICATIONS: - prednisone 20 mg by mouth daily until two days - famotidine 20 mg by mouth twice a day until seven days - hydroxyzine 50 mg at bedtime - tizanidine 4 mg every six hours as needed - Tylenol 1000 mg twice a day for two days HOSPITAL COURSE: This is a 51-year-old female who presented to the emergency room with swelling of lips, swelling of tongue, and hoarseness of voice after she started taking her increased dose of Lyrica. Her Lyrica was increased from 25 to 250 mg daily and she took the dosage for two days and started feeling slow, confused, and also developed swelling. In the emergency department, she was diagnosed with angioedema. She was treated with steroids, famotidine, and Benadryl with improvement of her symptoms, though she persisted to have lip and tongue swelling. She was then admitted and continued on prednisone, famotidine, hydroxyzine, and as-needed Benadryl which improved her symptoms. She was able to take regular food. On the day of discharge, the patient's symptoms have resolved. Her vital signs were stable and she was functionally at her baseline. PHYSICAL EXAMINATION: VITAL SIGNS: Temperature 96.8, pulse 73, respiratory rate 20, blood pressure 128/59, pulse oximetry 97% on room air. GENERAL: The patient is awake, alert, and oriented times three, sitting up in bed, in no acute distress. HEENT: Normocephalic, atraumatic. Moist mucous membranes. Anicteric eyes. CHEST: Clear to auscultation. CARDIOVASCULAR: S1, S2, regular rate. No rub, murmur, or gallop. ABDOMEN: Soft, nontender. Bowel sounds present. EXTREMITIES: No edema. LABORATORY DATA: WBC 9.8, hemoglobin 11.3, platelets 375. Sodium 146, potassium 4, chloride 111, bicarbonate 28, BUN 11, creatinine 0.7, calcium 8.8, glucose 95. DISPOSITION: The patient is discharged home in a stable condition. DISCHARGE INSTRUCTIONS: The patient is to followup with primary care provider in 1-2 weeks. Regular diet. Activity as tolerated.
== END 2016-04-03 09:30 | disposition home or self-care (01) ==
LOC: M ED 01:35 → M ED INP 06:18 → M PCU 14:00 → M PED 04-02 16:50
PROVIDERS: ADMIT Internal Medicine; ATTEND Internal Medicine
DX: T78.3XXA Angioneurotic edema, initial encounter (principal); T42.6X5A Adverse effect of other antiepileptic and sedative-hypnotic drugs, initial encounter; M79.7 Fibromyalgia; Z79.899 Other long term (current) drug therapy; M48.06 Spinal stenosis, lumbar region; I95.9 Hypotension, unspecified; Z88.1 Allergy status to other antibiotic agents; Z88.0 Allergy status to penicillin; Z87.891 Personal history of nicotine dependence
CPT/HCPCS: 36415; 80048; 82550; 82553; 85025; 85027; 85652; 86140; 90471; 90686; 93005; 93041; 96361; 96372; 96374; 96375; 96376; 97161; 99284; J1200; J2405; J2930

== ENCOUNTER 2016-04-08 17:10 | Emergency (ER) | payer OTHER ==
[~2016-04-08 17:10] MED LIST: DELT1TAB PO; FAMO20TA PO; HYDR-4274 PO; LYRI200C PO; TIZA4CAP3 PO
[2016-04-08] MEDS ORDERED: MORPHINE 4 MG/ML 1ML SYRINGE As Ordered ONE (19:02)
[2016-04-08] MEDS ORDERED: methylPREDNISolone INJ 125 MG/2 ML VIAL (J2930) As Ordered ONE (19:03)
[2016-04-08] MEDS ORDERED: OXYCODONE/APAP 5MG/325MG(BULK) 1 TAB TAB As Ordered ONE (19:51)
--- NOTE | 2016-04-08 19:59 | EDDOCDS ---
Nurse's Notes [facility] Name: Michelle Toro Age: 51 yrs Sex: Female : 1965 Arrival Date: 04/08/2016 Time: 17:10 Bed PD Private MD: STELLA Martinez [facility] [place] Diagnosis: Radiculopathy, lumbar region-affecting right side Presentation: 04/08 17:16 Presenting complaint: Patient states: RLQ pain radiating down right leg that started 3 dsf days ago. pt states the pain also radiated down right buttocks . pt denies n/v. Risk factors: the patient reports no vaginal bleeding. Adult Sepsis Screening: The patient does not have new or worsening altered mentation. Patient's respiratory rate is less than 22. Systolic blood pressure is greater than 100. Patient has a qSOFA score of 0- Negative Sepsis Screen. Suicide/Homicide risk assessment- the patient denies having any suicidal and/or homicidal ideations and does not present with any other emotional, behavioral or mental health complaints. 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 Transition of care: patient was not received from another setting of care. 17:16 Acuity: CASA Level 3 dsf 17:16 Method Of Arrival: Wheelchair dsf Triage Assessment: 17:18 General: Appears in no apparent distress, Behavior is appropriate for age, cooperative. dsf Pain: Location: right lower quadrant Pain currently is 7 out of 10 on a pain scale. Pain radiates to right gluteus sandra and right leg Quality of pain is described as stabbing. HIV screening NA for this visit Offered previously. GI: Reports RLQ pain Denies nausea, vomiting. 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 hydroxyzine 25 mg nightly 25mg 2 tabs po at bedtime (Last dose: 04/07/2016) 2. tizanidine 4 mg oral tab 1 tab every 6 hours (Last dose: 04/07/2016) - PMHx: Anxiety; back pain; Fibromyalgia; neck pain; Spinal Stenosis; - PSHx: right ankle surgery; Gall Bladder Removal; - Social history: Smoking status: Patient states was never smoker of tobacco. No barriers to communication noted, The patient speaks fluent Eritrean, Speaks appropriately for age. - Family history: Not pertinent. - : The pt / caregiver states he / she is not on anticoagulants. Home medication list is obtained from the patient. - Exposure Risk Screening:: None identified. Screenin:56 Screening information is obtained from the patient. Fall risk: At risk due to gait ld5 disturbance. Assistance ADL's: requires no assistance with activities of daily living. Abuse/DV Screen: The patient / caregiver reports he/she is: not in a situation that causes fear, pain or injury. Nutritional screening: No deficits noted. Advance Directives: Currently, there is no health care proxy. home support is adequate. Assessment: 19:11 General: Appears in no apparent distress, Behavior is cooperative. Pain: Location: ld5 right leg and right gluteus sandra and right lower quadrant Pain currently is 7 out of 10 on a pain scale. Neurological: Level of Consciousness is awake, alert. Respiratory: Airway is patent Respiratory effort is even, unlabored. GI: Abdomen is non- distended Bowel sounds present X 4 quads. Abd is soft and non tender X 4 quads. 19:56 General: Appears in no apparent distress, Behavior is cooperative. Pain: Pain currently ld5 is 5 out of 10 on a pain scale. Neurological: Level of Consciousness is awake, alert. Respiratory: Respiratory effort is even, unlabored. Vital Signs: 17:12 BP 135 / 72; Pulse 68; Resp 16; Temp 96.4(T); Pulse Ox 99% on R/A; Weight 78.02 kg (R); lr2 Height 63 in. (160.02 cm) (R); Pain 6/10; 19:47 BP 132 / 70; Pulse 59; Resp 18; Temp 97.6(O); Pulse Ox 97% on R/A; Pain 0/10; ct3 17:12 Body Mass Index 30.47 (78.02 kg, 160.02 cm) lr2 Vitals: 17:12 Log In Time: April 08, 2016 at 17:10. lr2 ED Course: 17:11 Patient visited by Eliza Corea. lr2 17:11 Patient moved to Waiting lr2 17:12 MICHELLE is Private Physician. lr2 17:12 Michelle [facility] [place] is Private Physician. lr2 17:13 Patient moved to Pre RCE lr2 17:17 Triage Initiated dsf 18:40 Patient moved to Triage 1 kr3 18:42 Chata Segovia PA-C is PHCP. dt4 18:42 Lucie Orosco MD is Attending Physician. dt4 18:42 Patient visited by Chata Segovia PA-C. dt4 19:01 Patient moved to PD2 / kr3 19:06 [facility] Payment Agreement was scanned into Ensequence and attached to record. gb 19:12 Patient visited by Eliza Costello,MARIAN. ld5 19:48 Patient visited by Liliana Bradley PCA. ct3 19:56 The patient / caregiver is instructed regarding the plan of care and ED course. Patient ld5 has correct armband on for positive identification. 19:56 No IV's were initiated during this patient's visit. No procedures done that require ld5 assistance. 19:58 Patient visited by Eliza Costello RN. ld5 Administered Medications: 19:10 Drug: methylPREDNISolone Sodium Succinate 125 mg [methylprednisolone sodium succ 125 mg ld5 solution for injection (125 mg)] Route: IM; Site: left gluteus; 19:11 Drug: morphine 4 mg [morphine 4 mg/mL intravenous cartridge (1 mL)] Route: IM; Site: ld5 left deltoid; 19:55 Follow up: Response: Confirmed pt not driving.; Pain is decreased ld5 19:55 Drug: oxyCODONE-acetaminophen 4 pack 1 packets [oxycodone-acetaminophen 5 mg-325 mg ld5 tablet (1 tabs)] {Co-Signature: cz (Celestine Parmar RN).} Route: PO; 19:56 Follow up: Response: Med's dispensed home ld5 Order Results: There are currently no results for this order. Outcome: 19:42 Discharge ordered by Provider. dt4 19:56 Discharge Assessment: Patient awake, alert and oriented x 3. No cognitive and/or ld5 functional deficits noted. Patient verbalized understanding of disposition instructions. patient administered narcotics - yes. Pt provided with safe discharge. The following High Risk Discharge criteria are identified: None. Discharged to home via wheelchair, with significant other. Condition: stable. Discharge instructions given to patient, Instructed on discharge instructions, follow up and referral plans. medication usage, no driving heavy equipment, Demonstrated understanding of instructions, medications, Pt was receptive of discharge instructions/ teaching. Prescriptions given X 2. No special radiology studies were completed. Property :Personal belongings accompany Pt. 19:58 Patient left the ED. ld5 Signatures: Ignacia Herman, Reg Reg gb Margaret Foster,RN RN kr3 Eliza Costello,RN RN ld5 Liliana Bradley, TRANSMISSION REBUILDER TRANSMISSION REBUILDER ct3 Tamiko Gardner,RN RN amarif Chata Segovia, PASarina PAHenriC dt4 Eliza Corea lr2 Celestine Parmar RN cz MTDD
--- NOTE | 2016-04-08 19:59 | EDDOCDS ---
Physician Documentation [facility] Name: Michelle Toro Age: 51 yrs Sex: Female : 1965 Arrival Date: 04/08/2016 Time: 17:10 Bed PD Private MD: STELLA Martinez [facility] [place] Disposition: 04/08/16 19:42 Discharged to Home/Self Care. Impression: Radiculopathy, lumbar region - affecting right side. - Condition is Stable. - Discharge Instructions: Lumbosacral Radiculopathy. - Prescriptions for Percocet 5- 325 mg Oral Tablet - take 1 tablet by ORAL route every 6 hours As needed MDD: 4 tabs; 10 tablet. Prednisone 20 mg Oral Tablet - take 2 tablets by ORAL route once daily for 4 days; 8 tablet. - Medication Reconciliation, Local Pharmacy Hours form. - Follow up: Emergency Department; When: As needed; Reason: Worsening of conditions. Follow up: Private Physician; When: 2 - 3 days; Reason: Wound/Symptom Recheck, Recheck today's complaints, Continuance of care. - Problem is new. - Symptoms have improved. Historical: - Allergies: Ciprofloxacin (Rash); Latex (Rash); Neurontinanxiety; PENICILLINS (Hives); Lyrica (Anaphylaxis); - Home Meds: 1. hydroxyzine 25 mg nightly 25mg 2 tabs po at bedtime (Last dose: 04/07/2016) 2. tizanidine 4 mg oral tab 1 tab every 6 hours (Last dose: 04/07/2016) - PMHx: Anxiety; back pain; Fibromyalgia; neck pain; Spinal Stenosis; - PSHx: right ankle surgery; Gall Bladder Removal; - Social history: Smoking status: Patient states was never smoker of tobacco. No barriers to communication noted, The patient speaks fluent Sami, Speaks appropriately for age. - Family history: Not pertinent. - : The pt / caregiver states he / she is not on anticoagulants. Home medication list is obtained from the patient. - Exposure Risk Screening:: None identified. 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 (160.02 cm) (R); Pain 6/10; 19:47 BP 132 / 70; Pulse 59; Resp 18; Temp 97.6(O); Pulse Ox 97% on R/A; Pain 0/10; ct3 17:12 Body Mass Index 30.47 (78.02 kg, 160.02 cm) lr2 MDM: 18:57 morphine 4 mg IM once ordered. dt4 18:57 methylPREDNISolone Sodium Succinate 125 mg IM once ordered. dt4 19:00 Financial registration complete. gb 19:06 [facility] Payment Agreement was scanned into MoveEZ and attached to record. gb 19:43 oxyCODONE-acetaminophen 4 pack 5 mg-325 mg 1 packets PO once; Dispense with pt, take as dt4 per instruction on package ordered. Administered Medications: 19:10 Drug: methylPREDNISolone Sodium Succinate 125 mg [methylprednisolone sodium succ 125 mg ld5 solution for injection (125 mg)] Route: IM; Site: left gluteus; 19:11 Drug: morphine 4 mg [morphine 4 mg/mL intravenous cartridge (1 mL)] Route: IM; Site: ld5 left deltoid; 19:55 Follow up: Response: Confirmed pt not driving.; Pain is decreased ld5 19:55 Drug: oxyCODONE-acetaminophen 4 pack 1 packets [oxycodone-acetaminophen 5 mg-325 mg ld5 tablet (1 tabs)] {Co-Signature: luana (Celestine Parmar RN).} Route: PO; 19:56 Follow up: Response: Med's dispensed home ld5 Signatures: Ignacia Herman, Reg Reg gb Eliza Costello,MARIAN RN ld5 Tamiko Gardner RN RN dsf Tschudi, Diane, PASarina PA-C dt4 Celestine craft The chart was reviewed and I authenticate all verbal orders and agree with the evaluation and treatment provided.Attachments: 19:06 [facility] Payment Agreement gb MTDD
--- NOTE | 2016-04-10 20:59 | EDDOCDS ---
Physician Documentation [facility] Name: Michelle Toro Age: 51 yrs Sex: Female : 1965 Arrival Date: 04/08/2016 Time: 17:10 Bed PD Private MD: STELLA Martinez [facility] [place] Disposition: 04/08/16 19:42 Discharged to Home/Self Care. Impression: Radiculopathy, lumbar region - affecting right side. - Condition is Stable. - Discharge Instructions: Lumbosacral Radiculopathy. - Prescriptions for Percocet 5- 325 mg Oral Tablet - take 1 tablet by ORAL route every 6 hours As needed MDD: 4 tabs; 10 tablet. Prednisone 20 mg Oral Tablet - take 2 tablets by ORAL route once daily for 4 days; 8 tablet. - Medication Reconciliation, Local Pharmacy Hours form. - Follow up: Emergency Department; When: As needed; Reason: Worsening of conditions. Follow up: Private Physician; When: 2 - 3 days; Reason: Wound/Symptom Recheck, Recheck today's complaints, Continuance of care. - Problem is new. - Symptoms have improved. Historical: - Allergies: Ciprofloxacin (Rash); Latex (Rash); Neurontinanxiety; PENICILLINS (Hives); Lyrica (Anaphylaxis); - Home Meds: 1. hydroxyzine 25 mg nightly 25mg 2 tabs po at bedtime (Last dose: 04/07/2016) 2. tizanidine 4 mg oral tab 1 tab every 6 hours (Last dose: 04/07/2016) - PMHx: Anxiety; back pain; Fibromyalgia; neck pain; Spinal Stenosis; - PSHx: right ankle surgery; Gall Bladder Removal; - Social history: Smoking status: Patient states was never smoker of tobacco. No barriers to communication noted, The patient speaks fluent Yi, Speaks appropriately for age. - Family history: Not pertinent. - : The pt / caregiver states he / she is not on anticoagulants. Home medication list is obtained from the patient. - Exposure Risk Screening:: None identified. 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 (160.02 cm) (R); Pain 6/10; 19:47 BP 132 / 70; Pulse 59; Resp 18; Temp 97.6(O); Pulse Ox 97% on R/A; Pain 0/10; ct3 17:12 Body Mass Index 30.47 (78.02 kg, 160.02 cm) lr2 MDM: 18:57 morphine 4 mg IM once ordered. dt4 18:57 methylPREDNISolone Sodium Succinate 125 mg IM once ordered. dt4 19:00 Financial registration complete. gb 19:06 [facility] Payment Agreement was scanned into payByMobile and attached to record. gb 19:43 oxyCODONE-acetaminophen 4 pack 5 mg-325 mg 1 packets PO once; Dispense with pt, take as dt4 per instruction on package ordered. 20:59 T-Sheet-- Draft Copy was scanned into payByMobile and attached to record. klr Administered Medications: 19:10 Drug: methylPREDNISolone Sodium Succinate 125 mg [methylprednisolone sodium succ 125 mg ld5 solution for injection (125 mg)] Route: IM; Site: left gluteus; 19:11 Drug: morphine 4 mg [morphine 4 mg/mL intravenous cartridge (1 mL)] Route: IM; Site: ld5 left deltoid; 19:55 Follow up: Response: Confirmed pt not driving.; Pain is decreased ld5 19:55 Drug: oxyCODONE-acetaminophen 4 pack 1 packets [oxycodone-acetaminophen 5 mg-325 mg ld5 tablet (1 tabs)] {Co-Signature: luana (Celestine Parmar RN).} Route: PO; 19:56 Follow up: Response: Med's dispensed home ld5 Signatures: Ignacia Herman, Reg Reg gb Eliza Costello RN RN ld5 Tamiko Gardner RN RN dsf Tschudi, Diane, PA-C PA-C dt4 Desi Isabel RN The chart was reviewed and I authenticate all verbal orders and agree with the evaluation and treatment provided.Attachments: 19:06 [facility] Payment Agreement gb 20:59 T-Sheet-- Draft Copy klr Chart Complete MTDD
--- NOTE | 2016-04-10 20:59 | EDDOCDS ---
Nurse's Notes [facility] Name: Michelle Toro Age: 51 yrs Sex: Female : 1965 Arrival Date: 04/08/2016 Time: 17:10 Bed PD Private MD: STELLA Martinez [facility] [place] Diagnosis: Radiculopathy, lumbar region-affecting right side Presentation: 04/08 17:16 Presenting complaint: Patient states: RLQ pain radiating down right leg that started 3 dsf days ago. pt states the pain also radiated down right buttocks . pt denies n/v. Risk factors: the patient reports no vaginal bleeding. Adult Sepsis Screening: The patient does not have new or worsening altered mentation. Patient's respiratory rate is less than 22. Systolic blood pressure is greater than 100. Patient has a qSOFA score of 0- Negative Sepsis Screen. Suicide/Homicide risk assessment- the patient denies having any suicidal and/or homicidal ideations and does not present with any other emotional, behavioral or mental health complaints. Status: Patient is not a patient service technician pst or dependent. Transition of care: patient was not received from another setting of care. 17:16 Acuity: CASA Level 3 dsf 17:16 Method Of Arrival: Wheelchair dsf Triage Assessment: 17:18 General: Appears in no apparent distress, Behavior is appropriate for age, cooperative. dsf Pain: Location: right lower quadrant Pain currently is 7 out of 10 on a pain scale. Pain radiates to right gluteus sandra and right leg Quality of pain is described as stabbing. HIV screening NA for this visit Offered previously. GI: Reports RLQ pain Denies nausea, vomiting. 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 hydroxyzine 25 mg nightly 25mg 2 tabs po at bedtime (Last dose: 04/07/2016) 2. tizanidine 4 mg oral tab 1 tab every 6 hours (Last dose: 04/07/2016) - PMHx: Anxiety; back pain; Fibromyalgia; neck pain; Spinal Stenosis; - PSHx: right ankle surgery; Gall Bladder Removal; - Social history: Smoking status: Patient states was never smoker of tobacco. No barriers to communication noted, The patient speaks fluent Yemeni, Speaks appropriately for age. - Family history: Not pertinent. - : The pt / caregiver states he / she is not on anticoagulants. Home medication list is obtained from the patient. - Exposure Risk Screening:: None identified. Screenin:56 Screening information is obtained from the patient. Fall risk: At risk due to gait ld5 disturbance. Assistance ADL's: requires no assistance with activities of daily living. Abuse/DV Screen: The patient / caregiver reports he/she is: not in a situation that causes fear, pain or injury. Nutritional screening: No deficits noted. Advance Directives: Currently, there is no health care proxy. home support is adequate. Assessment: 19:11 General: Appears in no apparent distress, Behavior is cooperative. Pain: Location: ld5 right leg and right gluteus sandra and right lower quadrant Pain currently is 7 out of 10 on a pain scale. Neurological: Level of Consciousness is awake, alert. Respiratory: Airway is patent Respiratory effort is even, unlabored. GI: Abdomen is non- distended Bowel sounds present X 4 quads. Abd is soft and non tender X 4 quads. 19:56 General: Appears in no apparent distress, Behavior is cooperative. Pain: Pain currently ld5 is 5 out of 10 on a pain scale. Neurological: Level of Consciousness is awake, alert. Respiratory: Respiratory effort is even, unlabored. Vital Signs: 17:12 BP 135 / 72; Pulse 68; Resp 16; Temp 96.4(T); Pulse Ox 99% on R/A; Weight 78.02 kg (R); lr2 Height 63 in. (160.02 cm) (R); Pain 6/10; 19:47 BP 132 / 70; Pulse 59; Resp 18; Temp 97.6(O); Pulse Ox 97% on R/A; Pain 0/10; ct3 17:12 Body Mass Index 30.47 (78.02 kg, 160.02 cm) lr2 Vitals: 17:12 Log In Time: April 08, 2016 at 17:10. lr2 ED Course: 17:11 Patient visited by Eliza Corea. lr2 17:11 Patient moved to Waiting lr2 17:12 MICHELLE is Private Physician. lr2 17:12 Michelle [facility] [place] Private Physician. lr2 17:13 Patient moved to Pre RCE lr2 17:17 Triage Initiated dsf 18:40 Patient moved to Triage 1 kr3 18:42 Chata Segovia PA-C is PHCP. dt4 18:42 Lucie Orosco MD is Attending Physician. dt4 18:42 Patient visited by Chata Segovia PA-C. dt4 19:01 Patient moved to PD2 / kr3 19:06 [facility] Payment Agreement was scanned into Kairos and attached to record. gb 19:12 Patient visited by Eliza Costello RN. ld5 19:48 Patient visited by Liliana Bradley PCA. ct3 19:56 The patient / caregiver is instructed regarding the plan of care and ED course. Patient ld5 has correct armband on for positive identification. 19:56 No IV's were initiated during this patient's visit. No procedures done that require ld5 assistance. 19:58 Patient visited by Eliza Costello RN. ld5 20:59 T-Sheet-- Draft Copy was scanned into Kairos and attached to record. klr Administered Medications: 19:10 Drug: methylPREDNISolone Sodium Succinate 125 mg [methylprednisolone sodium succ 125 mg ld5 solution for injection (125 mg)] Route: IM; Site: left gluteus; 19:11 Drug: morphine 4 mg [morphine 4 mg/mL intravenous cartridge (1 mL)] Route: IM; Site: ld5 left deltoid; 19:55 Follow up: Response: Confirmed pt not driving.; Pain is decreased ld5 19:55 Drug: oxyCODONE-acetaminophen 4 pack 1 packets [oxycodone-acetaminophen 5 mg-325 mg ld5 tablet (1 tabs)] {Co-Signature: cz (Celestine Parmar RN).} Route: PO; 19:56 Follow up: Response: Med's dispensed home ld5 Order Results: There are currently no results for this order. Outcome: 19:42 Discharge ordered by Provider. dt4 19:56 Discharge Assessment: Patient awake, alert and oriented x 3. No cognitive and/or ld5 functional deficits noted. Patient verbalized understanding of disposition instructions. patient administered narcotics - yes. Pt provided with safe discharge. The following High Risk Discharge criteria are identified: None. Discharged to home via wheelchair, with significant other. Condition: stable. Discharge instructions given to patient, Instructed on discharge instructions, follow up and referral plans. medication usage, no driving heavy equipment, Demonstrated understanding of instructions, medications, Pt was receptive of discharge instructions/ teaching. Prescriptions given X 2. No special radiology studies were completed. Property :Personal belongings accompany Pt. 19:58 Patient left the ED. ld5 Signatures: Ignacia Herman, Reg Reg gb Margaret Foster,RN RN kr3 Eliza Costello,RN RN ld5 Liliana Bradley, ACOUSTICS TEACHER ACOUSTICS TEACHER ct3 Tamiko Gardner,RN RN amarif Chata Segovia, SOWMYA ayala4 Desi Isabel Laura lr2 Celestine Parmar RN cz Chart Complete VIKKI
--- NOTE | 2016-04-10 20:59 | EDDOCDS ---
Physician Documentation [facility] Name: Michelle Toro Age: 51 yrs Sex: Female : 1965 Arrival Date: 04/08/2016 Time: 17:10 Bed PD Private MD: STELLA Martinez [facility] [place] Disposition: 04/08/16 19:42 Discharged to Home/Self Care. Impression: Radiculopathy, lumbar region - affecting right side. - Condition is Stable. - Discharge Instructions: Lumbosacral Radiculopathy. - Prescriptions for Percocet 5- 325 mg Oral Tablet - take 1 tablet by ORAL route every 6 hours As needed MDD: 4 tabs; 10 tablet. Prednisone 20 mg Oral Tablet - take 2 tablets by ORAL route once daily for 4 days; 8 tablet. - Medication Reconciliation, Local Pharmacy Hours form. - Follow up: Emergency Department; When: As needed; Reason: Worsening of conditions. Follow up: Private Physician; When: 2 - 3 days; Reason: Wound/Symptom Recheck, Recheck today's complaints, Continuance of care. - Problem is new. - Symptoms have improved. Historical: - Allergies: Ciprofloxacin (Rash); Latex (Rash); Neurontinanxiety; PENICILLINS (Hives); Lyrica (Anaphylaxis); - Home Meds: 1. hydroxyzine 25 mg nightly 25mg 2 tabs po at bedtime (Last dose: 04/07/2016) 2. tizanidine 4 mg oral tab 1 tab every 6 hours (Last dose: 04/07/2016) - PMHx: Anxiety; back pain; Fibromyalgia; neck pain; Spinal Stenosis; - PSHx: right ankle surgery; Gall Bladder Removal; - Social history: Smoking status: Patient states was never smoker of tobacco. No barriers to communication noted, The patient speaks fluent Chinese, Speaks appropriately for age. - Family history: Not pertinent. - : The pt / caregiver states he / she is not on anticoagulants. Home medication list is obtained from the patient. - Exposure Risk Screening:: None identified. 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 (160.02 cm) (R); Pain 6/10; 19:47 BP 132 / 70; Pulse 59; Resp 18; Temp 97.6(O); Pulse Ox 97% on R/A; Pain 0/10; ct3 17:12 Body Mass Index 30.47 (78.02 kg, 160.02 cm) lr2 MDM: 18:57 morphine 4 mg IM once ordered. dt4 18:57 methylPREDNISolone Sodium Succinate 125 mg IM once ordered. dt4 19:00 Financial registration complete. gb 19:06 [facility] Payment Agreement was scanned into House[employer] and attached to record. gb 19:43 oxyCODONE-acetaminophen 4 pack 5 mg-325 mg 1 packets PO once; Dispense with pt, take as dt4 per instruction on package ordered. 20:59 T-Sheet-- Draft Copy was scanned into House[employer] and attached to record. klr Administered Medications: 19:10 Drug: methylPREDNISolone Sodium Succinate 125 mg [methylprednisolone sodium succ 125 mg ld5 solution for injection (125 mg)] Route: IM; Site: left gluteus; 19:11 Drug: morphine 4 mg [morphine 4 mg/mL intravenous cartridge (1 mL)] Route: IM; Site: ld5 left deltoid; 19:55 Follow up: Response: Confirmed pt not driving.; Pain is decreased ld5 19:55 Drug: oxyCODONE-acetaminophen 4 pack 1 packets [oxycodone-acetaminophen 5 mg-325 mg ld5 tablet (1 tabs)] {Co-Signature: luana (Celestine Parmar RN).} Route: PO; 19:56 Follow up: Response: Med's dispensed home ld5 Signatures: Ignacia Herman, Reg Reg gb Eliza Costello RN RN ld5 Tamiko Gardner RN RN dsf Tschudi, Diane, PA-C PA-C dt4 Desi Isabel RN The chart was reviewed and I authenticate all verbal orders and agree with the evaluation and treatment provided.Attachments: 19:06 [facility] Payment Agreement gb 20:59 T-Sheet-- Draft Copy klr Chart Complete MTDD
== END 2016-04-08 19:58 | disposition home or self-care (01) ==
LOC: M ED 17:10
DX: M54.16 Radiculopathy, lumbar region (principal); R11.0 Nausea; F41.9 Anxiety disorder, unspecified; M79.7 Fibromyalgia; M54.2 Cervicalgia; M48.00 Spinal stenosis, site unspecified; Z91.040 Latex allergy status; Z88.0 Allergy status to penicillin; Z88.1 Allergy status to other antibiotic agents; Z88.8 Allergy status to other drugs, medicaments and biological substances
CPT/HCPCS: 96372; 99283; J2930

== ENCOUNTER 2016-04-17 12:14 | Emergency (ER) | payer OTHER ==
--- NOTE | 2016-04-17 14:59 | EDDOCDS ---
Physician Documentation [facility] Name: Michelle Toro Age: 51 yrs Sex: Female : 1965 Arrival Date: 04/17/2016 Time: 12:14 Bed 1 Private MD: Michelle [facility] Disposition: 04/17 14:36 Critical Care: Critical care not applicable. pc Disposition: 04/17/16 14:40 Discharged to Home/Self Care. Impression: Person with feared health complaint in whom no diagnosis is made - no evidence of allergic reaction/angioedema, Other specified disorders of the skin and subcutaneous tissue - chapped lips. - Condition is Stable. - Discharge Instructions: Allergies. - Medication Reconciliation, Local Pharmacy Hours form. - [facility] up: [facility]; When: Call to arrange an appointment; Reason: Continuance of care. Follow up: Maikel Banks; When: Call to arrange an appointment; Reason: Further diagnostic work-up, To establish care. - Problem is new. - Symptoms are unchanged. HPI: 14:29 This 51 yrs old Female presents to ER via Walkin/Carried/Asstd with complaints pc of Allergic Reaction. 14:29 The history is obtained from the patient. She says she feels a "lump feeling"in her pc throat since early this morning and was concerned she was having an allergic reaction again. She had a medication reaction to Lyrica a few weeks ago which did cause true angioedema. She denies any trouble swallowing, chest pain, SOB, swelling of her hands or feet or face. She does complaint of dry, cracked skin in the corners of her mouth. Otherwise, she has no new complaints except her diffuse chronic pain from fibromyalgia. Historical: - Allergies: Ciprofloxacin (Rash); Latex (Rash); Lyrica (Anaphylaxis); Neurontinanxiety; PENICILLINS (Hives); - Home Meds: 1. hydroxyzine 25 mg nightly 25mg 2 tabs po at bedtime (Last dose: 04/16/2016) 2. tizanidine 4 mg oral tab 1 tab every 6 hours (Last dose: 04/16/2016) - PMHx: Anxiety; back pain; Fibromyalgia; neck pain; Spinal Stenosis; - PSHx: right ankle surgery; Gall Bladder Removal; - The history from nurses notes was reviewed: and I agree with what is documented. - Social history: Smoking status: Patient states was never smoker of tobacco. No barriers to communication noted, The patient speaks fluent Vietnamese. - : The pt / caregiver states he / she is not on anticoagulants. Home medication list is obtained from the patient. - Exposure Risk Screening:: None identified. - Immunization history:: All immunizations up-to-date. - Family history: Not pertinent. 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 pc Exam: 14:34 General Appearance: no acute distress, alert, anxious. pc 14:34 EENT: normal eye inspection, ears, nose and throat normal, pharynx normal, mucous membranes moist dry, cracked lips at the corners of her mouth. 14:34 Neck: The exam reveals no acute abnormalities. ROM is normal and painless. No nuchal rigidity is noted.. 14:34 Respiratory: no respiratory distress, normal breath sounds, chest non-tender. 14:34 CVS: regular pulse rate, regular rhythm, normal S1 and S2, no murmurs, strong peripheral pulses, normal capillary refill. 14:34 Abdomen: soft, non-tender, no organomegaly, normal bowel sounds. 14:36 Back: normal inspection. pc 14:36 Skin: skin color is normal, warm, dry, no rashes, no lesions. 14:36 Extremities: The extremities have a grossly normal appearance, are non-tender, without acute ROM abnormalities, no edema of hands, feet. 14:36 Neuro: oriented x 3, cranial nerves normal as tested, no motor deficits, no sensory deficits. 14:36 Psych: normal mood. Vital Signs: 12:16 BP 142 / 71; Pulse 52; Resp 16; Temp 98.8; Pulse Ox 98% on R/A; Weight 77.11 kg / 170 lr2 lbs (R); Height 63 in. (160.02 cm); 12:44 Pulse 52 MON; Pulse Ox 98% ; srm 12:44 BP 135 / 71 (auto/); srm 13:00 BP 142 / 74 (auto/); srm 13:00 Pulse 54 MON; Resp 18; Pulse Ox 97% ; srm 13:30 BP 147 / 74 (auto/); srm 13:30 Pulse 62 MON; Pulse Ox 99% ; srm 14:00 BP 142 / 71 (auto/); srm 14:00 Pulse 54 MON; Resp 18; Pulse Ox 99% ; srm 14:30 Pulse 57 MON; Pulse Ox 97% ; srm 14:30 BP 130 / 73 (auto/); srm 14:51 BP 137 / 65 (auto/); srm 14:51 Pulse 59 MON; Resp 18; Pulse Ox 98% ; srm 12:16 Body Mass Index 30.11 (77.11 kg, 160.02 cm) lr2 MDM: 12:29 ECG WITH READING ER PHYS+CARDIAG ordered. EDMS 14:36 Differential Diagnosis: anxiety reaction, dry skin - weather related. Plan: pc reassurance. Data reviewed: old medical records, vital signs, nurses notes. Test interpretation: none. The patient has been re-examined and re-evaluated. The clinical presentation did not require any ED treatment or interventions. Disposition: The historical points, examination findings, and any diagnostic results supporting the provided diagnosis, were discussed with the patient or legal guardian. The need for outpatient follow up with the provider listed on their discharge instructions was discussed. They were encouraged to return to [facility], or the nearest ED, if symptoms worsen/persist, or for any other questions/concerns. 14:50 Financial registration complete. mm15 14:53 [facility] Payment Agreement was scanned into [email or web address] and attached to record. mm15 Signatures: Dispatcher [employer] EDMS Jovany Thompson MD MD pc Jobson, Karen, RN RN kpj Michelson, Staci, RN RN srm McGrath, Marlynn mm15 The chart was reviewed and I authenticate all verbal orders and agree with the evaluation and treatment provided.Attachments: 14:53 [facility] Payment Agreement mm15 MTDNorma
--- NOTE | 2016-04-17 14:59 | EDDOCDS ---
Nurse's Notes [facility] Name: Michelle Toro Age: 51 yrs Sex: Female : 1965 Arrival Date: 04/17/2016 Time: 12:14 Bed 1 Private MD: Michelle [facility] Diagnosis: Person with feared health complaint in whom no diagnosis is made-no evidence of allergic reaction/angioedema;Other specified disorders of the skin and subcutaneous tissue-chapped lips Presentation: 04/17 12:20 Presenting complaint: Patient states: woke with lips red and swollen, took 2 benadryl kpj at 1130, denies new foods or meds. Feeling like her throat is tight and has slight pains in chest. Onset: The symptoms/episode began/occurred this morning. The patient has a history of a previous allergic reaction. The previous reaction involved swelling. slow heart rate. Anaphylaxis evaluation, the patient reports or I have noted the following symptoms which indicate a significant risk of anaphylaxis: chest pain lump in the throat which may suggest laryngeal edema. Adult Sepsis Screening: The patient does not have new or worsening altered mentation. Patient's respiratory rate is less than 22. Systolic blood pressure is greater than 100. Patient has a qSOFA score of 0- Negative Sepsis Screen. Suicide/Homicide risk assessment- the patient denies having any suicidal and/or homicidal ideations and does not present with any other emotional, behavioral or mental health complaints. Status: The patient is a dependent. retired. Transition of care: patient was not received from another setting of care. Red Flag criteria, triage then to bed. 12:20 Acuity: CASA Level 3 [facility] 12:20 Method Of Arrival: Walkin/Carried/Asstd [facility] Triage Assessment: 12:25 General: Appears in no apparent distress, Behavior is anxious. Pain: Location: left [facility] side of throat and chest Pain currently is 6 out of 10 on a pain scale. HIV screening NA for this visit Offered previously. Neurological: Level of Consciousness is awake, alert, Oriented to person, place, time. EENT: accommodates own secretions , no drooling noted. Reports difficulty swallowing. Cardiovascular: Chest pain is located in anterior chest wall. Respiratory: Airway is patent Respiratory effort is even, unlabored, Respiratory pattern is regular, symmetrical, speaking full sentences without difficulty. Derm: Skin is pink, warm & dry. Swollen area noted on lips. 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 hydroxyzine 25 mg nightly 25mg 2 tabs po at bedtime (Last dose: 04/16/2016) 2. tizanidine 4 mg oral tab 1 tab every 6 hours (Last dose: 04/16/2016) - PMHx: Anxiety; back pain; Fibromyalgia; neck pain; Spinal Stenosis; - PSHx: right ankle surgery; Gall Bladder Removal; - The history from nurses notes was reviewed: and I agree with what is documented. - Social history: Smoking status: Patient states was never smoker of tobacco. No barriers to communication noted, The patient speaks fluent Somali. - : The pt / caregiver states he / she is not on anticoagulants. Home medication list is obtained from the patient. - Exposure Risk Screening:: None identified. - Immunization history:: All immunizations up-to-date. - Family history: Not pertinent. 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 Screenin:00 Screening information is obtained from the patient. Fall risk: No risks identified. srm Assistance ADL's: requires no assistance with activities of daily living. Assistance ADL's: requires no assistance with activities of daily living. Abuse/DV Screen: The patient / caregiver reports he/she is: not in a situation that causes fear, pain or injury. Nutritional screening: No deficits noted. Advance Directives: There is no active DNR order. home support is adequate. Assessment: 12:47 General: Appears in no apparent distress, Behavior is appropriate for age, cooperative. srm Cardiovascular: Rhythm is sinus bradycardia. Respiratory: Airway is patent Respiratory effort is even, unlabored, Breath sounds are clear bilaterally. GI: No deficits noted. Derm: lips red, swollen. pt able to speak full sentences and swallow own secretions. 13:30 Reassessment: Patient appears in no apparent distress at this time. srm 14:32 Reassessment: Patient appears in no apparent distress at this time. Cardiovascular: srm Rhythm is sinus rhythm. Respiratory: Airway is patent Respiratory effort is even, unlabored. 14:56 General: Appears in no apparent distress, Behavior is appropriate for age, cooperative. srm Neurological: No deficits noted. Cardiovascular: Rhythm is sinus rhythm. Respiratory: Airway is patent Respiratory effort is even, unlabored. GI: No deficits noted. Derm: lips red and chapped appearing. Vital Signs: 12:16 BP 142 / 71; Pulse 52; Resp 16; Temp 98.8; Pulse Ox 98% on R/A; Weight 77.11 kg (R); lr2 Height 63 in. (160.02 cm); 12:44 Pulse 52 MON; Pulse Ox 98% ; srm 12:44 BP 135 / 71 (auto/); srm 13:00 BP 142 / 74 (auto/); srm 13:00 Pulse 54 MON; Resp 18; Pulse Ox 97% ; srm 13:30 BP 147 / 74 (auto/); srm 13:30 Pulse 62 MON; Pulse Ox 99% ; srm 14:00 BP 142 / 71 (auto/); srm 14:00 Pulse 54 MON; Resp 18; Pulse Ox 99% ; srm 14:30 Pulse 57 MON; Pulse Ox 97% ; srm 14:30 BP 130 / 73 (auto/); srm 14:51 BP 137 / 65 (auto/); srm 14:51 Pulse 59 MON; Resp 18; Pulse Ox 98% ; srm 12:16 Body Mass Index 30.11 (77.11 kg, 160.02 cm) lr2 Vitals: 12:16 Log In Time: April 17, 2016 at 12:14. lr2 12:16 RN notified that patient meets Red Flag criteria. lr2 ED Course: 12:16 Patient visited by Eliza Corea. lr2 12:16 Patient moved to Waiting lr2 12:17 Michelle [facility] is Private Physician. lr2 12:18 Patient moved to Pre RCE lr2 12:20 Patient moved to [facility] 12:24 Triage Initiated kpj 12:37 EKG done. (by ED staff). Reviewed by Jovany Thompson MD. rn1 12:44 Inserted saline lock: 22 gauge in right WRIST. srm 12:44 Missed attempts: 20 gauge in right antecubital area. srm 12:45 Patient visited by Cuca Dejesus, MARIAN. srm 12:48 Patient visited by Cuca Dejesus, MARIAN. srm 12:48 The patient / caregiver is instructed regarding the plan of care and ED course. srm Accompanied by Significant Other, Patient has correct armband on for positive identification. Placed in gown. manager solution on. Pulse ox on. NIBP on. 13:00 Discontinued lock intact, bleeding controlled, pressure dressing applied, No srm redness/swelling at site. No procedures done that require assistance. 14:09 Jovany Thompson MD is Attending Physician. pc 14:11 Patient visited by Jovany Thompson MD. pc 14:40 [facility]. pc 14:41 Maikel Banks is Referral Physician. pc 14:53 [facility] Payment Agreement was scanned into [employer] and attached to record. mm15 Order Results: There are currently no results for this order. Outcome: 13:00 Discharge Assessment: Patient awake, alert and oriented x 3. No cognitive and/or srm functional deficits noted. Patient verbalized understanding of disposition instructions. patient administered narcotics - no. The following High Risk Discharge criteria are identified: None. Discharged to home via wheelchair, with significant other. Condition: good Condition: stable. Discharge instructions given to patient, Instructed on discharge instructions, follow up and referral plans. No special radiology studies were completed. Property sent home with patient. 14:40 Discharge ordered by Provider. pc 14:58 Patient left the ED. srm Signatures: Jovany Thompson MD MD pc Sleeman, Kacey, RN Tami Barton RN RN kpj Michelson, Staci, RN RN Janiya Miranda mm15 Maynor Sutherland rn1 Eliza Corea2 MTDNorma
--- NOTE | 2016-04-19 09:52 | ECGEPIP ---
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
--- NOTE | 2016-04-19 15:59 | EDDOCDS ---
Nurse's Notes [facility] Name: Michelle Toro Age: 51 yrs Sex: Female : 1965 Arrival Date: 04/17/2016 Time: 12:14 Bed 1 Private MD: Michelle [facility] Diagnosis: Person with feared health complaint in whom no diagnosis is made-no evidence of allergic reaction/angioedema;Other specified disorders of the skin and subcutaneous tissue-chapped lips Presentation: 04/17 12:20 Presenting complaint: Patient states: woke with lips red and swollen, took 2 benadryl kpj at 1130, denies new foods or meds. Feeling like her throat is tight and has slight pains in chest. Onset: The symptoms/episode began/occurred this morning. The patient has a history of a previous allergic reaction. The previous reaction involved swelling. slow heart rate. Anaphylaxis evaluation, the patient reports or I have noted the following symptoms which indicate a significant risk of anaphylaxis: chest pain lump in the throat which may suggest laryngeal edema. Adult Sepsis Screening: The patient does not have new or worsening altered mentation. Patient's respiratory rate is less than 22. Systolic blood pressure is greater than 100. Patient has a qSOFA score of 0- Negative Sepsis Screen. Suicide/Homicide risk assessment- the patient denies having any suicidal and/or homicidal ideations and does not present with any other emotional, behavioral or mental health complaints. Status: The patient is a dependent. retired. Transition of care: patient was not received from another setting of care. Red Flag criteria, triage then to bed. 12:20 Acuity: CASA Level 3 [facility] 12:20 Method Of Arrival: Walkin/Carried/Asstd [facility] Triage Assessment: 12:25 General: Appears in no apparent distress, Behavior is anxious. Pain: Location: left [facility] side of throat and chest Pain currently is 6 out of 10 on a pain scale. HIV screening NA for this visit Offered previously. Neurological: Level of Consciousness is awake, alert, Oriented to person, place, time. EENT: accommodates own secretions , no drooling noted. Reports difficulty swallowing. Cardiovascular: Chest pain is located in anterior chest wall. Respiratory: Airway is patent Respiratory effort is even, unlabored, Respiratory pattern is regular, symmetrical, speaking full sentences without difficulty. Derm: Skin is pink, warm & dry. Swollen area noted on lips. 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 hydroxyzine 25 mg nightly 25mg 2 tabs po at bedtime (Last dose: 04/16/2016) 2. tizanidine 4 mg oral tab 1 tab every 6 hours (Last dose: 04/16/2016) - PMHx: Anxiety; back pain; Fibromyalgia; neck pain; Spinal Stenosis; - PSHx: right ankle surgery; Gall Bladder Removal; - The history from nurses notes was reviewed: and I agree with what is documented. - Social history: Smoking status: Patient states was never smoker of tobacco. No barriers to communication noted, The patient speaks fluent Montenegrin. - : The pt / caregiver states he / she is not on anticoagulants. Home medication list is obtained from the patient. - Exposure Risk Screening:: None identified. - Immunization history:: All immunizations up-to-date. - Family history: Not pertinent. 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 Screenin:00 Screening information is obtained from the patient. Fall risk: No risks identified. srm Assistance ADL's: requires no assistance with activities of daily living. Assistance ADL's: requires no assistance with activities of daily living. Abuse/DV Screen: The patient / caregiver reports he/she is: not in a situation that causes fear, pain or injury. Nutritional screening: No deficits noted. Advance Directives: There is no active DNR order. home support is adequate. Assessment: 12:47 General: Appears in no apparent distress, Behavior is appropriate for age, cooperative. srm Cardiovascular: Rhythm is sinus bradycardia. Respiratory: Airway is patent Respiratory effort is even, unlabored, Breath sounds are clear bilaterally. GI: No deficits noted. Derm: lips red, swollen. pt able to speak full sentences and swallow own secretions. 13:30 Reassessment: Patient appears in no apparent distress at this time. srm 14:32 Reassessment: Patient appears in no apparent distress at this time. Cardiovascular: srm Rhythm is sinus rhythm. Respiratory: Airway is patent Respiratory effort is even, unlabored. 14:56 General: Appears in no apparent distress, Behavior is appropriate for age, cooperative. srm Neurological: No deficits noted. Cardiovascular: Rhythm is sinus rhythm. Respiratory: Airway is patent Respiratory effort is even, unlabored. GI: No deficits noted. Derm: lips red and chapped appearing. Vital Signs: 12:16 BP 142 / 71; Pulse 52; Resp 16; Temp 98.8; Pulse Ox 98% on R/A; Weight 77.11 kg (R); lr2 Height 63 in. (160.02 cm); 12:44 Pulse 52 MON; Pulse Ox 98% ; srm 12:44 BP 135 / 71 (auto/); srm 13:00 BP 142 / 74 (auto/); srm 13:00 Pulse 54 MON; Resp 18; Pulse Ox 97% ; srm 13:30 BP 147 / 74 (auto/); srm 13:30 Pulse 62 MON; Pulse Ox 99% ; srm 14:00 BP 142 / 71 (auto/); srm 14:00 Pulse 54 MON; Resp 18; Pulse Ox 99% ; srm 14:30 Pulse 57 MON; Pulse Ox 97% ; srm 14:30 BP 130 / 73 (auto/); srm 14:51 BP 137 / 65 (auto/); srm 14:51 Pulse 59 MON; Resp 18; Pulse Ox 98% ; srm 12:16 Body Mass Index 30.11 (77.11 kg, 160.02 cm) lr2 Vitals: 12:16 Log In Time: April 17, 2016 at 12:14. lr2 12:16 RN notified that patient meets Red Flag criteria. lr2 ED Course: 12:16 Patient visited by Eliza Corea. lr2 12:16 Patient moved to Waiting lr2 12:17 Michelle [facility] is Private Physician. lr2 12:18 Patient moved to Pre RCE lr2 12:20 Patient moved to [facility] 12:24 Triage Initiated kpj 12:37 EKG done. (by ED staff). Reviewed by Jovany Thompson MD. rn1 12:44 Inserted saline lock: 22 gauge in right WRIST. srm 12:44 Missed attempts: 20 gauge in right antecubital area. srm 12:45 Patient visited by Cuca Dejesus, MARIAN. srm 12:48 Patient visited by Cuca Dejesus, MARIAN. srm 12:48 The patient / caregiver is instructed regarding the plan of care and ED course. srm Accompanied by Significant Other, Patient has correct armband on for positive identification. Placed in gown. telemetry monitor on. Pulse ox on. NIBP on. 13:00 Discontinued lock intact, bleeding controlled, pressure dressing applied, No srm redness/swelling at site. No procedures done that require assistance. 14:09 Jovany Thompson MD is Attending Physician. pc 14:11 Patient visited by Jovany Thompson MD. pc 14:40 [facility] is Referral Physician. pc 14:41 Maikel Banks is Referral Physician. pc 14:53 [facility] Payment Agreement was scanned into [employer] and attached to record. mm15 03 10:05 EKG-ADULT Returned. 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 No cognitive and/or srm functional deficits noted. Patient verbalized understanding of disposition instructions. patient administered narcotics - no. The following High Risk Discharge criteria are identified: None. Discharged to home via wheelchair, with significant other. Condition: good Condition: stable. Discharge instructions given to patient, Instructed on discharge instructions, follow up and referral plans. No special radiology studies were completed. Property sent home with patient. 14:40 Discharge ordered by Provider. pc 14:58 Patient left the ED. srm Signatures: Dispatcher [facility] EDMO Jovany Thompson MD MD pc Sleeman, Kacey, RN RN kcs Jobson, Karen, RN RN kpj Michelson, Cuca, RN RN srm Janiya Ni mm15 Maynor Sutherland rn1 Eliza Corea lr2 Chart Complete MTDD
--- NOTE | 2016-04-19 15:59 | EDDOCDS ---
Physician Documentation [facility] Name: Michelle Toro Age: 51 yrs Sex: Female : 1965 Arrival Date: 04/17/2016 Time: 12:14 Bed 1 Private MD: Michelle [facility] [place] Disposition: 04/17 14:36 Critical Care: Critical care not applicable. pc Disposition: 04/17/16 14:40 Discharged to Home/Self Care. Impression: Person with feared health complaint in whom no diagnosis is made - no evidence of allergic reaction/angioedema, Other specified disorders of the skin and subcutaneous tissue - chapped lips. - Condition is Stable. - Discharge Instructions: Allergies. - Medication Reconciliation, Local Pharmacy Hours form. - Follow up: [facility]; When: Call to arrange an appointment; Reason: Continuance of care. Follow up: [facility]; When: Call to arrange an appointment; Reason: Further diagnostic work-up, To establish care. - Problem is new. - Symptoms are unchanged. HPI: 14:29 This 51 yrs old Female presents to ER via Walkin/Carried/Asstd with complaints pc of Allergic Reaction. 14:29 The history is obtained from the patient. She says she feels a "lump feeling"in her pc throat since early this morning and was concerned she was having an allergic reaction again. She had a medication reaction to Lyrica a few weeks ago which did cause true angioedema. She denies any trouble swallowing, chest pain, SOB, swelling of her hands or feet or face. She does complaint of dry, cracked skin in the corners of her mouth. Otherwise, she has no new complaints except her diffuse chronic pain from fibromyalgia. Historical: - Allergies: Ciprofloxacin (Rash); Latex (Rash); Lyrica (Anaphylaxis); Neurontinanxiety; PENICILLINS (Hives); - Home Meds: 1. hydroxyzine 25 mg nightly 25mg 2 tabs po at bedtime (Last dose: 04/16/2016) 2. tizanidine 4 mg oral tab 1 tab every 6 hours (Last dose: 04/16/2016) - PMHx: Anxiety; back pain; Fibromyalgia; neck pain; Spinal Stenosis; - PSHx: right ankle surgery; Gall Bladder Removal; - The history from nurses notes was reviewed: and I agree with what is documented. - Social history: Smoking status: Patient states was never smoker of tobacco. No barriers to communication noted, The patient speaks fluent Occitan. - : The pt / caregiver states he / she is not on anticoagulants. Home medication list is obtained from the patient. - Exposure Risk Screening:: None identified. - Immunization history:: All immunizations up-to-date. - Family history: Not pertinent. 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 pc Exam: 14:34 General Appearance: no acute distress, alert, anxious. pc 14:34 EENT: normal eye inspection, ears, nose and throat normal, pharynx normal, mucous membranes moist dry, cracked lips at the corners of her mouth. 14:34 Neck: The exam reveals no acute abnormalities. ROM is normal and painless. No nuchal rigidity is noted.. 14:34 Respiratory: no respiratory distress, normal breath sounds, chest non-tender. 14:34 CVS: regular pulse rate, regular rhythm, normal S1 and S2, no murmurs, strong peripheral pulses, normal capillary refill. 14:34 Abdomen: soft, non-tender, no organomegaly, normal bowel sounds. 14:36 Back: normal inspection. pc 14:36 Skin: skin color is normal, warm, dry, no rashes, no lesions. 14:36 Extremities: The extremities have a grossly normal appearance, are non-tender, without acute ROM abnormalities, no edema of hands, feet. 14:36 Neuro: oriented x 3, cranial nerves normal as tested, no motor deficits, no sensory deficits. 14:36 Psych: normal mood. Vital Signs: 12:16 BP 142 / 71; Pulse 52; Resp 16; Temp 98.8; Pulse Ox 98% on R/A; Weight 77.11 kg / 170 lr2 lbs (R); Height 63 in. (160.02 cm); 12:44 Pulse 52 MON; Pulse Ox 98% ; srm 12:44 BP 135 / 71 (auto/); srm 13:00 BP 142 / 74 (auto/); srm 13:00 Pulse 54 MON; Resp 18; Pulse Ox 97% ; srm 13:30 BP 147 / 74 (auto/); srm 13:30 Pulse 62 MON; Pulse Ox 99% ; srm 14:00 BP 142 / 71 (auto/); srm 14:00 Pulse 54 MON; Resp 18; Pulse Ox 99% ; srm 14:30 Pulse 57 MON; Pulse Ox 97% ; srm 14:30 BP 130 / 73 (auto/); srm 14:51 BP 137 / 65 (auto/); srm 14:51 Pulse 59 MON; Resp 18; Pulse Ox 98% ; srm 12:16 Body Mass Index 30.11 (77.11 kg, 160.02 cm) lr2 MDM: 12:29 ECG WITH READING ER PHYS+CARDIAG ordered. EDMS 14:36 Differential Diagnosis: anxiety reaction, dry skin - weather related. Plan: pc reassurance. Data reviewed: old medical records, vital signs, nurses notes. The patient has been re-examined and re-evaluated. The clinical presentation did not require any ED treatment or interventions. Disposition: The historical points, examination findings, and any diagnostic results supporting the provided diagnosis, were discussed with the patient or legal guardian. The need for outpatient follow up with the provider listed on their discharge instructions was discussed. They were encouraged to return to [facility], or the nearest ED, if symptoms worsen/persist, or for any other questions/concerns. 14:50 Financial registration complete. mm15 14:53 [facility] Payment Agreement was scanned into [employer] and attached to record. mm15 15:42 Test interpretation: EKG. pc EC:40 Rate is 48 beats/min. Rhythm is regular, Sinus bradycardia. QRS [place] is Normal. [place] pc interval is normal. QRS interval is normal. QT interval is normal. No Q waves. T waves are Normal. No ST changes noted. Clinical impression: Sinus bradycardia. Signatures: Dispatcher [employer] EDMS Jovany Thompson MD MD pc Jobson, Karen, RN RN kpj Michelson, Staci, RN RN srm McGrath, Marlynn mm15 The chart was reviewed and I authenticate all verbal orders and agree with the evaluation and treatment provided.Corrections: (The following items were deleted from the chart) 15:43 14:36 Test interpretation: none, pc pc Attachments: 14:53 [facility] [place] Agreement mm15 Chart Complete MTDD
--- NOTE | 2016-04-19 15:59 | EDDOCDS ---
Physician Documentation [facility] Name: Michelle Toro Age: 51 yrs Sex: Female : 1965 Arrival Date: 04/17/2016 Time: 12:14 Bed 1 Private MD: Michelle [facility] [place] Disposition: 04/17 14:36 Critical Care: Critical care not applicable. pc Disposition: 04/17/16 14:40 Discharged to Home/Self Care. Impression: Person with feared health complaint in whom no diagnosis is made - no evidence of allergic reaction/angioedema, Other specified disorders of the skin and subcutaneous tissue - chapped lips. - Condition is Stable. - Discharge Instructions: Allergies. - Medication Reconciliation, Local Pharmacy Hours form. - Follow up: [facility]; When: Call to arrange an appointment; Reason: Continuance of care. Follow up: [facility]; When: Call to arrange an appointment; Reason: Further diagnostic work-up, To establish care. - Problem is new. - Symptoms are unchanged. HPI: 14:29 This 51 yrs old Female presents to ER via Walkin/Carried/Asstd with complaints pc of Allergic Reaction. 14:29 The history is obtained from the patient. She says she feels a "lump feeling"in her pc throat since early this morning and was concerned she was having an allergic reaction again. She had a medication reaction to Lyrica a few weeks ago which did cause true angioedema. She denies any trouble swallowing, chest pain, SOB, swelling of her hands or feet or face. She does complaint of dry, cracked skin in the corners of her mouth. Otherwise, she has no new complaints except her diffuse chronic pain from fibromyalgia. Historical: - Allergies: Ciprofloxacin (Rash); Latex (Rash); Lyrica (Anaphylaxis); Neurontinanxiety; PENICILLINS (Hives); - Home Meds: 1. hydroxyzine 25 mg nightly 25mg 2 tabs po at bedtime (Last dose: 04/16/2016) 2. tizanidine 4 mg oral tab 1 tab every 6 hours (Last dose: 04/16/2016) - PMHx: Anxiety; back pain; Fibromyalgia; neck pain; Spinal Stenosis; - PSHx: right ankle surgery; Gall Bladder Removal; - The history from nurses notes was reviewed: and I agree with what is documented. - Social history: Smoking status: Patient states was never smoker of tobacco. No barriers to communication noted, The patient speaks fluent Belarusian. - : The pt / caregiver states he / she is not on anticoagulants. Home medication list is obtained from the patient. - Exposure Risk Screening:: None identified. - Immunization history:: All immunizations up-to-date. - Family history: Not pertinent. 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 pc Exam: 14:34 General Appearance: no acute distress, alert, anxious. pc 14:34 EENT: normal eye inspection, ears, nose and throat normal, pharynx normal, mucous membranes moist dry, cracked lips at the corners of her mouth. 14:34 Neck: The exam reveals no acute abnormalities. ROM is normal and painless. No nuchal rigidity is noted.. 14:34 Respiratory: no respiratory distress, normal breath sounds, chest non-tender. 14:34 CVS: regular pulse rate, regular rhythm, normal S1 and S2, no murmurs, strong peripheral pulses, normal capillary refill. 14:34 Abdomen: soft, non-tender, no organomegaly, normal bowel sounds. 14:36 Back: normal inspection. pc 14:36 Skin: skin color is normal, warm, dry, no rashes, no lesions. 14:36 Extremities: The extremities have a grossly normal appearance, are non-tender, without acute ROM abnormalities, no edema of hands, feet. 14:36 Neuro: oriented x 3, cranial nerves normal as tested, no motor deficits, no sensory deficits. 14:36 Psych: normal mood. Vital Signs: 12:16 BP 142 / 71; Pulse 52; Resp 16; Temp 98.8; Pulse Ox 98% on R/A; Weight 77.11 kg / 170 lr2 lbs (R); Height 63 in. (160.02 cm); 12:44 Pulse 52 MON; Pulse Ox 98% ; srm 12:44 BP 135 / 71 (auto/); srm 13:00 BP 142 / 74 (auto/); srm 13:00 Pulse 54 MON; Resp 18; Pulse Ox 97% ; srm 13:30 BP 147 / 74 (auto/); srm 13:30 Pulse 62 MON; Pulse Ox 99% ; srm 14:00 BP 142 / 71 (auto/); srm 14:00 Pulse 54 MON; Resp 18; Pulse Ox 99% ; srm 14:30 Pulse 57 MON; Pulse Ox 97% ; srm 14:30 BP 130 / 73 (auto/); srm 14:51 BP 137 / 65 (auto/); srm 14:51 Pulse 59 MON; Resp 18; Pulse Ox 98% ; srm 12:16 Body Mass Index 30.11 (77.11 kg, 160.02 cm) lr2 MDM: 12:29 ECG WITH READING ER PHYS+CARDIAG ordered. EDMS 14:36 Differential Diagnosis: anxiety reaction, dry skin - weather related. Plan: pc reassurance. Data reviewed: old medical records, vital signs, nurses notes. The patient has been re-examined and re-evaluated. The clinical presentation did not require any ED treatment or interventions. Disposition: The historical points, examination findings, and any diagnostic results supporting the provided diagnosis, were discussed with the patient or legal guardian. The need for outpatient follow up with the provider listed on their discharge instructions was discussed. They were encouraged to return to [facility], or the nearest ED, if symptoms worsen/persist, or for any other questions/concerns. 14:50 Financial registration complete. mm15 14:53 [facility] Payment Agreement was scanned into [employer] and attached to record. mm15 15:42 Test interpretation: EKG. pc EC:40 Rate is 48 beats/min. Rhythm is regular, Sinus bradycardia. QRS [place] is Normal. [place] pc interval is normal. QRS interval is normal. QT interval is normal. No Q waves. T waves are Normal. No ST changes noted. Clinical impression: Sinus bradycardia. Signatures: Dispatcher [employer] EDMS Jovany Thompson MD MD pc Jobson, Karen, RN RN kpj Michelson, Staci, RN RN srm McGrath, Marlynn mm15 The chart was reviewed and I authenticate all verbal orders and agree with the evaluation and treatment provided.Corrections: (The following items were deleted from the chart) 15:43 14:36 Test interpretation: none, pc pc Attachments: 14:53 [facility] [place] Agreement mm15 Chart Complete MTDD
== END 2016-04-17 14:58 | disposition home or self-care (01) ==
LOC: M ED 12:14
DX: Z71.1 Person with feared health complaint in whom no diagnosis is made (principal); T69.8XXA Other specified effects of reduced temperature, initial encounter; M48.00 Spinal stenosis, site unspecified; F41.9 Anxiety disorder, unspecified; M79.7 Fibromyalgia; Z79.899 Other long term (current) drug therapy; Z88.0 Allergy status to penicillin; Z88.1 Allergy status to other antibiotic agents; Z88.8 Allergy status to other drugs, medicaments and biological substances; Z91.040 Latex allergy status

== ENCOUNTER 2016-04-29 10:58 | Emergency (ER) | payer OTHER ==
[~2016-04-29] VITALS: Ht 160 cm; Wt 76.2 kg
[2016-04-29] MEDS ORDERED: diphenhydrAMINE INJ 50MG/ML VIAL (J1200) IV STA (12:50)
[2016-04-29] MEDS ORDERED: AZITHROMYCIN 250 MG TAB PO ONE (13:00)
[2016-04-29] MEDS ORDERED: FAMOTIDINE IV BAG 20 MG in APPROPRIATE DILUENT 1 EA IV ONE (13:00)
[2016-04-29] MEDS ORDERED: KETOROLAC 30 MG/ML VIAL (J1885) IV ONE (13:00)
[2016-04-29] MEDS ORDERED: methylPREDNISolone INJ 125 MG/2 ML VIAL (J2930) IV ONE (13:00)
[2016-04-29] MEDS ORDERED: ONDANSETRON 4MG/2ML VIAL (J2405) IV ONE (13:00)
[2016-04-29] MEDS ORDERED: PRED20TA PO (13:47)
[2016-04-29] MEDS ORDERED: FAMO20TA PO (13:51)
[2016-04-29] MEDS ORDERED: ZITH250T PO (13:51)
[2016-04-29] MEDS ORDERED: BENA25TA9 PO (13:51)
[2016-04-29 14:00] VITALS: BP 117/66
== END 2016-04-29 14:04 | disposition home or self-care (01) ==
LOC: M ED 12:33
DX: R21 Rash and other nonspecific skin eruption (principal); R22.0 Localized swelling, mass and lump, head; T36.95XA Adverse effect of unspecified systemic antibiotic, initial encounter; J01.90 Acute sinusitis, unspecified; I10 Essential (primary) hypertension; E03.9 Hypothyroidism, unspecified; M79.7 Fibromyalgia; M19.90 Unspecified osteoarthritis, unspecified site; M51.9 Unspecified thoracic, thoracolumbar and lumbosacral intervertebral disc disorder; Z87.09 Personal history of other diseases of the respiratory system; Z79.899 Other long term (current) drug therapy; Z79.51 Long term (current) use of inhaled steroids; Z88.0 Allergy status to penicillin; Z88.1 Allergy status to other antibiotic agents; Z88.8 Allergy status to other drugs, medicaments and biological substances; Z87.891 Personal history of nicotine dependence
CPT/HCPCS: 96374; 96375; 99282; J1200; J1885; J2405; J2930

== ENCOUNTER 2016-05-15 09:53 | Emergency (ER) | payer OTHER ==
[~2016-05-15] VITALS: Ht 160 cm; Wt 73.0 kg
[~2016-05-15 09:53] MED LIST changes: +BENA25TA9 PO; +PRED20TA PO; +ZITH250T PO
[2016-05-15] MEDS ORDERED: ONDANSETRON 4MG/2ML VIAL (J2405) IV ONE (11:00)
[2016-05-15] MEDS ORDERED: KETOROLAC 30 MG/ML VIAL (J1885) IV ONE (11:00)
[2016-05-15] MEDS ORDERED: NS 1,000 ML IV ONE (11:00)
[2016-05-15 11:25] LABS: BASO % 0.3 % (0.0-1.0); EOS # 0.2 K/mm3 (0.0-0.50); EOS % 2.3 % (0.0-3.0); LARGE UNSTAINED CELL # 0.1 K/mm3 (0.0-0.4); LARGE UNSTAINED CELL % 1.2 % (0.0-4.0); LYMPH # 1.7 K/mm3 (1.5-4.5); LYMPH % 20.7 % (24.0-44.0); MEAN CORPUSCULAR HEMOGLOBIN 29.4 pg (27.0-33.0); MEAN CORPUSCULAR HGB CONC 33.2 g/dl (32.0-36.5); MEAN CORPUSCULAR VOLUME 88.7 fl (80.0-96.0); MONO # 0.3 K/mm3 (0.0-0.8); MONO % 3.6 % (0.0-5.0); NEUTROPHILS # 5.8 K/mm3 (1.8-7.7); NEUTROPHILS % 71.9 % (36.0-66.0); PLATELET COUNT, AUTOMATED 374 k/mm3 (150-450); RED CELL DISTRIBUTION WIDTH 13.2 % (11.5-14.5); WHITE BLOOD COUNT 8.1 K/mm3 (4.0-10.0)
[2016-05-15 11:44] LABS: ALBUMIN/GLOBULIN RATIO 1.38 (1.00-1.93); ALKALINE PHOSPHATASE 85 U/L (45-117); ALT/SGPT 24 U/L (12-78); ANION GAP 10 MEQ/L (8-16); AST/SGOT 13 U/L (15-37); BILIRUBIN,DIRECT 0.1 MG/DL (0.0-0.2); BILIRUBIN,TOTAL 0.4 MG/DL (0.2-1.0); BLOOD UREA NITROGEN 4 MG/DL (7-18); CALCIUM LEVEL 9.1 MG/DL (8.5-10.1); CARBON DIOXIDE LEVEL 24 MEQ/L (21-32); CHLORIDE LEVEL 108 MEQ/L (98-107); CREATININE FOR GFR 0.51 MG/DL (0.55-1.02); GLOMERULAR FILTRATION RATE > 60.0 (>51); GLUCOSE, FASTING 89 MG/DL (70-105); POTASSIUM SERUM 4.2 MEQ/L (3.5-5.1); SODIUM LEVEL 142 MEQ/L (136-145); TOTAL PROTEIN 6.9 GM/DL (6.4-8.2)
[2016-05-15] MEDS ORDERED: ZOFR4TAB3 AD (12:14)
[2016-05-15] MEDS ORDERED: BENT10CA PO (12:14)
[2016-05-15 12:22] VITALS: BP 123/69
== END 2016-05-15 12:29 | disposition home or self-care (01) ==
LOC: M ED 10:55
DX: R11.2 Nausea with vomiting, unspecified (principal); R19.7 Diarrhea, unspecified
CPT/HCPCS: 80048; 80076; 81001; 83690; 85025; 96374; 96375; 99282; J1885; J2405

== ENCOUNTER 2016-06-03 16:08 | Emergency (ER) | payer OTHER ==
[~2016-06-03] VITALS: Ht 160 cm; Wt 72.1 kg
[~2016-06-03 16:08] MED LIST changes: +BENT10CA PO; +ZOFR4TAB3 AD
[2016-06-03 17:39] LABS: BASO % 0.3 % (0.0-1.0); EOS # 0.2 K/mm3 (0.0-0.50); EOS % 1.8 % (0.0-3.0); LARGE UNSTAINED CELL # 0.1 K/mm3 (0.0-0.4); LYMPH # 2.8 K/mm3 (1.5-4.5); LYMPH % 24.2 % (24.0-44.0); MEAN CORPUSCULAR HEMOGLOBIN 29.1 pg (27.0-33.0); MEAN CORPUSCULAR HGB CONC 32.9 g/dl (32.0-36.5); MEAN CORPUSCULAR VOLUME 88.4 fl (80.0-96.0); MONO # 0.5 K/mm3 (0.0-0.8); MONO % 4.2 % (0.0-5.0); NEUTROPHILS # 7.8 K/mm3 (1.8-7.7); NEUTROPHILS % 68.5 % (36.0-66.0); PLATELET COUNT, AUTOMATED 537 k/mm3 (150-450); WHITE BLOOD COUNT 11.4 K/mm3 (4.0-10.0)
[2016-06-03 18:02] LABS: ANION GAP 5 MEQ/L (8-16); BLOOD UREA NITROGEN 6 MG/DL (7-18); CALCIUM LEVEL 9.3 MG/DL (8.5-10.1); CARBON DIOXIDE LEVEL 28 MEQ/L (21-32); CHLORIDE LEVEL 105 MEQ/L (98-107); GLOMERULAR FILTRATION RATE > 60.0 (>51); GLUCOSE, FASTING 97 MG/DL (70-105); POTASSIUM SERUM 4.1 MEQ/L (3.5-5.1); SODIUM LEVEL 138 MEQ/L (136-145)
[2016-06-03 18:19] VITALS: BP 128/62
[2016-06-03] MEDS ORDERED: DITR5TAB PO (18:22)
[2016-06-03] MEDS: oxyBUTYnin 5 MG TAB PO SCH (18:44)
== END 2016-06-03 18:49 | disposition home or self-care (01) ==
LOC: M ED 16:36
DX: R35.0 Frequency of micturition (principal)

== ENCOUNTER 2016-07-17 05:14 | Inpatient (IN) | payer OTHER ==
[2016-07-17] VITALS (62 sets, daily range): BP systolic 69–120; BP diastolic 46–69
[~2016-07-17 05:14] MED LIST changes: +BENA25TA10 PO; -BENA25TA9 PO; +DITR5TAB PO; -HYDR-4274 PO; +HYDR50TA70 PO
[2016-07-17 05:35] LABS: MEAN CORPUSCULAR HEMOGLOBIN 29.5 pg (27.0-33.0); MEAN CORPUSCULAR HGB CONC 33.4 g/dl (32.0-36.5); MEAN CORPUSCULAR VOLUME 88.5 fl (80.0-96.0); WHITE BLOOD COUNT 7.1 K/mm3 (4.0-10.0)
[2016-07-17] MEDS ORDERED: MIDAZOLAM HCL 50 MG in D5W 40 ML IV STA (05:44)
[2016-07-17] MEDS ORDERED: MIDAZOLAM INJ 2 MG/2 ML VIAL (J2250) IV STA (05:55)
[2016-07-17] MEDS ORDERED: MIDAZOLAM INJ 5 MG/ML VIAL (J2250) As Ordered ONE (05:56)
[2016-07-17] MEDS ORDERED: MIDAZOLAM HCL 100 MG in D5W 80 ML IV SCH (06:00)
[2016-07-17] MEDS: MIDAZOLAM HCL 100 MG in D5W 80 ML IV SCH ×2 (06:00→20:40)
[2016-07-17 06:11] LABS: ALBUMIN 3.6 GM/DL (3.2-5.2); ALBUMIN/GLOBULIN RATIO 1.16 (1.00-1.93); ALKALINE PHOSPHATASE 90 U/L (45-117); ALT/SGPT 16 U/L (12-78); ANION GAP 9 MEQ/L (8-16); AST/SGOT 5 U/L (15-37); BILIRUBIN,DIRECT 0.2 MG/DL (0.0-0.2); BILIRUBIN,TOTAL 0.6 MG/DL (0.2-1.0); BLOOD UREA NITROGEN 8 MG/DL (7-18); CALCIUM LEVEL 8.8 MG/DL (8.5-10.1); CARBON DIOXIDE LEVEL 25 MEQ/L (21-32); CHLORIDE LEVEL 106 MEQ/L (98-107); CREATININE FOR GFR 0.77 MG/DL (0.55-1.02); GLOMERULAR FILTRATION RATE > 60.0 (>51); GLUCOSE, FASTING 196 MG/DL (70-105); POTASSIUM SERUM 4.1 MEQ/L (3.5-5.1); SODIUM LEVEL 140 MEQ/L (136-145); TOTAL PROTEIN 6.7 GM/DL (6.4-8.2)
[2016-07-17] MEDS ORDERED: ATROPINE SULF 1MG/10ML SYRINGE (J0461) IV STA ×2 (06:24→06:26)
[2016-07-17] MEDS ORDERED: ATROPINE SULF 1MG/10ML SYRINGE (J0461) As Ordered ONE (06:25)
[2016-07-17] MEDS ORDERED: CHARCOAL ACTIVATED LIQUID 25 GM/120 ML BTL NG ONE (06:30)
[2016-07-17 06:35] LABS: ABG BASE EXCESS -5.5 (-2.0-2.0); ABG PARTIAL PRESSURE CO2 25.5 mmHg (35.0-45.0); ABG PARTIAL PRESSURE O2 118.7 mmHg (75.0-100.0); ABG TOTAL CO2 17.8 MEQ/L (22.0-29.0); ABG pH (ARTERIAL) 7.443 UNITS (7.350-7.450)
[2016-07-17 06:46] LABS: METHADONE URINE NEGATIVE (NEGATIVE)
[2016-07-17] MEDS ORDERED: OXYB5TAB PO (07:18)
[2016-07-17] MEDS ORDERED: AMBI5TAB PO (07:18)
--- NOTE | 2016-07-17 07:45 | REP ---
Clinical: Endotracheal tube placement. Comparison: 10/16/2015. Findings: Endotracheal tube is approximately 1.3 cm above the cassie. Mediastinum and cardiac silhouette are normal. Lung francois are clear. No focal consolidation, effusion, or pneumothorax. Skeletal structures are intact. Impression: Endotracheal tube approximately 1.3 cm above the cassie. No focal consolidation. Signed by Gordon Saul MD 07/17/2016 07:36 A
[2016-07-17] MEDS: ALBUTEROL SULFATE 2.5 MG/0.5 ML INH NEB SOLN NEB SCH ×5 (08:00→22:28)
[2016-07-17] MEDS ORDERED: REFRIGERATOR IV KEYS XX PRN (08:45)
[2016-07-17] MEDS ORDERED: NS 1,000 ML IV SCH (08:45)
[2016-07-17] MEDS ORDERED: SUCCINYLCHOLINE 100 MG/5 ML SYRINGE (J0330) ONE (08:56)
--- NOTE | 2016-07-17 09:13 | HPE ---
DATE OF ADMISSION/CRITICAL CARE ADMIT NOTE: 07/17/2016 START TIME: 800 STOP TIME: 845 I attended Ms. Toro here in the emergency department. She presented earlier this morning after ingested 25 tablets of 4 mg of tizanidine. On arrival, she was barely conscious. She had decreased consciousness while here and was intubated by Dr. Cook. Initially had some bradycardia and was treated with atropine 0.5 mg times two. Currently she is intubated, sedated, mechanically ventilated. Heart rate 56 with sinus mechanism. Blood pressure 141/84. She is on Versed drip. She is unable to give any other history. No family available. ALLERGIES: Listed as CIPRO, GABAPENTIN, LASIX, PENICILLINS, PREGABALIN. HOME MEDICATIONS: Listed as: - oxybutynin - Zolpidem 5 mg tablets SOCIAL HISTORY: Unobtainable. FAMILY HISTORY Unobtainable. REVIEW OF SYSTEMS: Unobtainable due to her mental status. PHYSICAL EXAMINATION: Reveals a female who appears her stated age. As outlined above, blood pressure 141/84, heart rate 56 and regular, respirations 14 via the ventilator. She is currently afebrile. HEENT: Pupils to react. Sclera clear. There is oroendotracheal and orogastric tubes in place. No obvious signs of trauma. Neck is supple. Tracheal is in the midline. Chest is clear to both auscultation and percussion, symmetric and no significant focal adventitious breath sounds are identified. Cardiac exam is mildly bradycardic but regular. Peripheral pulses palpable, no edema. No obvious murmur, gallop or rub. Abdomen is soft. There are active bowel sounds. No hepatosplenomegaly or masses. There is a scar consistent with a prior abdominal procedure, well healed. Extremities show no cyanosis or clubbing. Neurologically, she is currently sedate. Chest x-ray shows the endotracheal tube in good position. No obvious infiltrates. White blood cell count 7.1, hemoglobin 14.0, platelet count 500,000. Sodium 140, potassium of 4.1, chloride 106, CO2 25, BUN 8, creatinine 0.77. Glucose 196. Albumin 3.6. Blood gas done at 0629 hours on the above ventilator setting shows pH 7.443, pCO2 of 25.5 and pO2 of 118.7. Saturation 98.7%. Unknown FiO2 at that time. Toxicology report is otherwise negative for salicylates, acetaminophen or alcohol or any other screens that are usually sent. IMPRESSION: 1. Respiratory failure secondary to drug overdose. 2. Drug ingestion in a suicide gesture. At this point, she has received charcoal. Bradycardia is listed with tizanidine but is one of the rare effects. Nothing else really showed up on her toxicology screen. At this point, it is generally supportive care. Half life of the tizanidine is a little longer given the number of tablets that she took. At this point, we will continue with IV hydration, assure adequate sedation. We will follow her cardiac status. I see no obvious signs of aspiration. Ulcer and deep venous thrombosis (DVT) prophylaxis are in place. When she is able to be extubated, she clearly will need evaluation from mental health. I will continue to try to get more history if family presents. I left the bedside at 0846 hours. 45 minutes of critical care time delivered at the bedside not including procedures.
[2016-07-17] MEDS ORDERED: NS 1,000 ML IV ONE (11:30)
[2016-07-17] MEDS: CHLORHEXIDINE GLUCONATE 0.12 % 15ML UDC (PERIDEX ORAL RINSE) MT SCH ×2 (11:39→21:06)
[2016-07-17] MEDS: PANTOPRAZOLE 40MG INJ (PROTONIX) (C9113) IV SCH (11:39)
[2016-07-17] MEDS ORDERED: NOREPINEPHRINE 4 MG/4 ML AMP As Ordered ONE ×2 (11:54→12:39)
[2016-07-17] MEDS ORDERED: NOREPINEPHRINE BITARTRATE 8 MG in D5W 500 ML IV SCH (12:00)
[2016-07-17] MEDS: MIDAZOLAM INJ 2 MG/2 ML VIAL (J2250) IV PRN ×4 (13:00→22:54)
--- NOTE | 2016-07-17 13:17 | CCN ---
DATE: 07/17/2016 START TIME: 1200 STOP TIME: 1220 I again attended Michelle Toro. She has developed some hypotension. Heart rate remains in the upper 50s to low 60s with a sinus mechanism. Chest shows good bilateral expansion. She is still making urine. IV fluid bolus given with only minimal response. Levophed was started and she has responded nicely. Central line will be placed for continued need for vasopressors. The most pressing problem requiring my presence at the bedside is hypotension, most likely secondary to drug overdose. At this point, we are continuing IV hydration and low dose pressors as needed. I left the bedside at 1220 hours. An additional 20 minutes of critical care time delivered at the bedside, not including procedures.
--- NOTE | 2016-07-17 13:26 | RO ---
DATE OF PROCEDURE: 07/17/2016 PREOPERATIVE DIAGNOSIS: Hypotension. POSTOPERATIVE DIAGNOSIS: Hypotension. PROCEDURE: Insertion of triple lumen central venous catheter. SURGEON: Dr. 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 PROCEDURE: After the patient was identified, the right femoral area was prepped and draped in the usual sterile manner. The patient is currently on a Versed drip. Using a large bore needle, the right femoral vein was cannulated. In a modified Seldinger technique, a triple lumen central venous catheter was easily advanced. Good venous return was obtained from all three ports. Each port was then flushed. The line was then sutured in place. No immediate complications noted. MTDD
[2016-07-17] MEDS: SODIUM CHLORIDE 0.9% INJ 10 ML SYR IV SCH ×2 (14:00→21:07)
[2016-07-17] MEDS ORDERED: SODIUM CHLORIDE 0.9% INJ 10 ML SYR IV PRN (14:00)
[2016-07-17 14:03] LABS: ABG BASE EXCESS -5.5 (-2.0-2.0); ABG HCO3 19.2 MEQ/L (22.0-26.0); ABG PARTIAL PRESSURE CO2 35.2 mmHg (35.0-45.0); ABG PARTIAL PRESSURE O2 116.8 mmHg (75.0-100.0); ABG TOTAL CO2 20.3 MEQ/L (22.0-29.0); ABG pH (ARTERIAL) 7.355 UNITS (7.350-7.450)
[2016-07-17 15:07] LABS: ANION GAP 8 MEQ/L (8-16); BLOOD UREA NITROGEN 6 MG/DL (7-18); CALCIUM LEVEL 8.4 MG/DL (8.5-10.1); CARBON DIOXIDE LEVEL 23 MEQ/L (21-32); CHLORIDE LEVEL 114 MEQ/L (98-107); CREATININE FOR GFR 0.75 MG/DL (0.55-1.02); GLOMERULAR FILTRATION RATE > 60.0 (>51); GLUCOSE, FASTING 145 MG/DL (70-105); POTASSIUM SERUM 3.8 MEQ/L (3.5-5.1); SODIUM LEVEL 145 MEQ/L (136-145)
[2016-07-17] MEDS: HEPARIN SOD (PORCINE) 5000 UNITS/ML VIAL SC SCH ×2 (15:27→21:06)
[2016-07-17] MEDS: KCL 40MEQ IN D5/0.45NS 1000ML 1,000 ML IV SCH ×2 (15:27→21:07)
--- NOTE | 2016-07-17 22:16 | ECGEPIP ---
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
[2016-07-18] VITALS (31 sets, daily range): BP systolic 92–159; BP diastolic 51–84
[2016-07-18] MEDS ORDERED: NOREPINEPHRINE BITARTRATE 8 MG in D5W 500 ML IV SCH ×2
[2016-07-18] MEDS: MIDAZOLAM INJ 2 MG/2 ML VIAL (J2250) IV PRN ×5 (00:27→05:28)
[2016-07-18] MEDS: ALBUTEROL SULFATE 2.5 MG/0.5 ML INH NEB SOLN NEB SCH ×6 (01:59→22:52)
[2016-07-18] MEDS: KCL 40MEQ IN D5/0.45NS 1000ML 1,000 ML IV SCH ×2 (03:39→09:51)
[2016-07-18] MEDS: SODIUM CHLORIDE 0.9% INJ 10 ML SYR IV SCH ×2 (05:28→13:28)
[2016-07-18] MEDS: HEPARIN SOD (PORCINE) 5000 UNITS/ML VIAL SC SCH ×3 (05:28→21:44)
[2016-07-18 05:31] LABS: BASO % 0.2 % (0.0-1.0); EOS # 0.1 K/mm3 (0.0-0.50); EOS % 1.5 % (0.0-3.0); LARGE UNSTAINED CELL # 0.1 K/mm3 (0.0-0.4); LARGE UNSTAINED CELL % 0.9 % (0.0-4.0); LYMPH % 27.7 % (24.0-44.0); MEAN CORPUSCULAR HEMOGLOBIN 29.2 pg (27.0-33.0); MEAN CORPUSCULAR HGB CONC 32.7 g/dl (32.0-36.5); MEAN CORPUSCULAR VOLUME 89.1 fl (80.0-96.0); MONO # 0.3 K/mm3 (0.0-0.8); MONO % 4.5 % (0.0-5.0); NEUTROPHILS # 4.6 K/mm3 (1.8-7.7); NEUTROPHILS % 65.2 % (36.0-66.0); RED CELL DISTRIBUTION WIDTH 13.5 % (11.5-14.5); WHITE BLOOD COUNT 7.1 K/mm3 (4.0-10.0)
[2016-07-18 05:44] LABS: PLATELET COUNT, AUTOMATED 353 k/mm3 (150-450)
[2016-07-18 05:51] LABS: ALBUMIN 2.9 GM/DL (3.2-5.2); ALBUMIN/GLOBULIN RATIO 1.12 (1.00-1.93); ALKALINE PHOSPHATASE 80 U/L (45-117); ALT/SGPT 14 U/L (12-78); ANION GAP 6 MEQ/L (8-16); AST/SGOT < 3 U/L (15-37); BILIRUBIN,TOTAL 0.5 MG/DL (0.2-1.0); BLOOD UREA NITROGEN 3 MG/DL (7-18); CALCIUM LEVEL 7.7 MG/DL (8.5-10.1); CARBON DIOXIDE LEVEL 24 MEQ/L (21-32); CHLORIDE LEVEL 114 MEQ/L (98-107); CHOLESTEROL LEVEL 131 MG/DL (< 200); GLOMERULAR FILTRATION RATE > 60.0 (>51); GLUCOSE, FASTING 128 MG/DL (70-105); PHOSPHORUS LEVEL 2.9 MG/DL (2.5-4.9); SODIUM LEVEL 144 MEQ/L (136-145); TOTAL PROTEIN 5.5 GM/DL (6.4-8.2); TRIGLYCERIDES LEVEL 107 MG/DL (<150)
[2016-07-18 06:01] LABS: ABG BASE EXCESS -3.2 (-2.0-2.0); ABG HCO3 20.5 MEQ/L (22.0-26.0); ABG PARTIAL PRESSURE CO2 32.6 mmHg (35.0-45.0); ABG PARTIAL PRESSURE O2 128.3 mmHg (75.0-100.0); ABG STANDARD HCO3 21.9 MEQ/L (22.0-26.0); ABG TOTAL CO2 21.5 MEQ/L (22.0-29.0); ABG pH (ARTERIAL) 7.417 UNITS (7.350-7.450)
--- NOTE | 2016-07-18 07:16 | REP ---
Clinical: Respiratory failure. Comparison: 07/17/2016. Findings: Endotracheal tube approximately 3 cm above the cassie. Nasogastric tube courses below left hemidiaphragm. Mediastinum and cardiac silhouette normal. Lung bases demonstrate coarsened interstitial markings which may reflect bronchitis and possible trace basilar atelectasis. No discrete focal consolidation. No obvious effusion. No pneumothorax. Skeletal structures intact. Impression: 1. Lines and tubes in satisfactory position. 2. Cannot exclude bronchitis or trace basilar atelectasis. Signed by Gordon Saul MD 07/18/2016 07:07 A
--- NOTE | 2016-07-18 07:18 | ECGEPIP ---
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
[2016-07-18] MEDS: PANTOPRAZOLE 40MG INJ (PROTONIX) (C9113) IV SCH (08:49)
[2016-07-18] MEDS: CHLORHEXIDINE GLUCONATE 0.12 % 15ML UDC (PERIDEX ORAL RINSE) MT SCH (08:49)
[2016-07-18] MEDS ORDERED: OMEPRAZOLE 20 MG CAP PO SCH (09:00)
[2016-07-18] MEDS ORDERED: KETOROLAC 30 MG/ML VIAL (J1885) IV ONE (10:45)
--- NOTE | 2016-07-18 11:48 | CCN ---
DATE: 07/18/2016 TIME OF VISIT: 0900 I again attended Michelle Toro. She has been weaned off the Levophed at around 4 o'clock this morning. Blood pressure is anywhere from 92 to 160 systolic. Heart rate is improved now. Sinus mechanism 80 to 130s. She is making reasonable urine. She is now off all sedation. She is easily arousable. She is writing notes. She moves all extremities. T-max overnight 99.6. Heart rate and blood pressure as outlined above. Respiratory rate 14 to 20 without accessory muscle use. Most recent blood gas done on SIMV of 14, tidal volume 420, PEEP of 5, pressure support of 10, FiO2 of 30% shows pH of 7.41, pCO2 32.6 and pAO2 of 128.7. Chest x-ray shows ET tube in good position. No obvious infiltrates. Sodium 144, potassium 4.0, chloride 114, CO2 24, BUN 3, creatinine 0.6, glucose 128. White blood cell count 7.1, hemoglobin 11.9 and platelet count 353,000. On exam, she is sedate, but arousable. Pupils react, sclerae clear. Trachea is midline. Chest clear to auscultation and percussion. Symmetric. No significant focal adventitious breath sounds identified. Cardiac exam is regular with no gallop. Peripheral pulses palpable, no edema. Abdomen soft, nontender. Extremities without cyanosis or clubbing. Neurologically as outlined above. IMPRESSION: 1. Respiratory failure secondary to drug overdose. 2. Suicide attempt. RECOMMENDATIONS: At this point, my hope is we will be able to achieve extubation this morning. I will involve the hospitalist in her care to manage her other issues. Clearly, we need to get mental health involved. Will proceed as outlined above. We will discontinue her central line as she is off vasopressor. Further recommendations will be made in the progress record as new information becomes available. I have spoken with Dr. Clark who has graciously agreed to accept her on her service.
--- NOTE | 2016-07-18 12:45 | REP ---
CERVICAL SPINE, FOUR VIEWS: HISTORY: Back pain. A congenital block vertebra is present at the C2-3 level. There is no acute fracture or subluxation. The C5-6 intervertebral disc is decreased in height consistent with disc degeneration. Osteophytes are present on C5 and C6. There is loss of the normal lordotic curve. IMPRESSION: Degenerative change as described above. Signed by Roger Richardson MD 07/18/2016 01:03 P
--- NOTE | 2016-07-18 12:47 | REP ---
THORACIC SPINE, THREE VIEWS: HISTORY: Back pain. COMPARISON: 11/27/2011 There is no acute fracture or subluxation. The intervertebral discs are normal in height. Anterior osteophytes are present in the mid and lower thoracic spine. There is minimal scoliosis of the upper and mid thoracic spine convex to the left. IMPRESSION: Degenerative change as described above. Signed by Roger Richardson MD 07/18/2016 01:03 P
--- NOTE | 2016-07-18 12:49 | REP ---
LUMBAR SPINE, FIVE VIEWS: HISTORY: Back pain. COMPARISON: 11/27/2011. There is no acute fracture or subluxation. The L3-4 intervertebral disc is decreased in height consistent with disc degeneration. The facet joints are normal in appearance. IMPRESSION: Degenerative change as described above. Signed by Roger Richardson MD 07/18/2016 01:04 P
[2016-07-18] MEDS ORDERED: SLF 3 ML SYR IV PRN (13:30)
[2016-07-18] MEDS: SLF 3 ML SYR IV SCH ×2 (13:32→21:45)
[2016-07-18] MEDS: KETOROLAC 30 MG/ML VIAL (J1885) IV SCH ×2 (16:27→21:44)
--- NOTE | 2016-07-18 17:56 | IPNPDOC ---
Text Note Date of Service The patient was seen on 07/18/16. NOTE Subjective: 51 yo F who is being transferred to the hospitalist service. She presented on to the ED, almost unconscious after ingesting a bottle of 25 4 mg tablets of tizanidine. States her called the ambulance after he found her in the bed at home. She was intubated, sedated, and mechanically ventilated, was placed on versed drip. Also received charcoal. Admitted to the ICU for respiratory failure secondary to drug overdose for close monitoring/airway protection after intubation as well as for supportive care. Patient was extubated this morning by Dr. Calzada. Patient seen and examined at bedside. States she ingested the xanaflex pills because she was trying to commit suicide. Moved to [place] ~ 2 years ago from [place]. Now lives in an apartment with her . States that the landlord is probably coming today and going to tell them to move out. States she does not eat. Cannot remember the last time she ate. States it's due to everything in her life. States her does not care for her, otherwise he would be here right now. Reports she has no one in her life. 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 States she does not want to talk anymore and asks "why are you asking these questions"? States she has blurred vision, generalized weakness, is malnourished and losing weight. Admits to dizziness. Admits to SOB and chest pain all the time that began 3 months ago. Denies abdominal pain, nausea, vomiting, diarrhea, constipation. Admits to skin breakdown after scratching. No other rashes or lesions admitted. Admits to buzzing sounds in the R side of her ear. States she has 5-10/10 lumbar back pain right now. Admits to herniated disks in her back and fibromyalgia. States she has not slept for over 75 days. Has 2 cats. Denies smoking, EtOH, illicit drug use. Objective: Vitals: T:98.9 BP:116/65 RR:16, 14 P:105 O2 Saturation: 97% room air I/O: 2424. mLs yesterday with +519.44 mL balance UO: 1.20 mL/kg/hr yesterday Wt: 65.8 kg from 66.224 kg today BMs: 0 General: Awake, alert, oriented 3. Cooperative female lying upright in bed in NAD. Psychiatric: Flat affect, severely low mood, slow speech, low tone with speaking. Does not elaborate much when asked questions. Suicidal. Gazes forward and does not look at you when you talk to her. Disinterested in anything. HEENT: Head: normocephalic, atraumatic. Eyes: PERRL, sclera are nonicteric. Nose: No external lesions Neck: Supple. Respiratory: Clear to auscultation bilaterally. Chest: Symmetrical chest rise bilaterally. Cardiovascular: regular rate and rhythm, with no murmurs, rubs or gallops. Abdomen: soft, nontender, nondistended, no hepatosplenomegaly appreciated. Bowel sounds present. Extremities: no swelling in either lower extremity bilaterally Neurological: No focal neurologic deficits appreciated bilaterally. Exam limited. Patient not able to shrug shoulders against resistance. Musculoskeletal: Exam limited. Patient not able to lift upper or lower extremities against my resistance. Either extremely weak or patient severely depressed and disinterested in following commands. Full ROM not able to be tested due to this. Integumentary: skin free from rashes, lesions, abrasions Vascular: +2 radial pulses appreciated bilaterally. Laboratory data: Please see below. Imaging: Please see imaging study reports from 07/18 for CXR (cannot exclude bronchitis or true basilar atelectasis), Lumbar Spine Xray, Thoracic Spine Xray, C-spine Xray. Multiple degenerative changes in reports. Assessment/Plan: This is a 51 yo F presenting with suicide attempt by intentional overdose of xanaflex. Suicide Attempt/Intentional Drug Overdose: Place on telemetry unit for cardiac monitoring. Continue respiratory monitoring. Has been extubated. Obtain Psychiatric consult. Supportive care, IVF hydration. Chronic Low Back Pain: Pain management consult. Toradol PRN pain. Diet: Regular. GI ppx: omeprazole DVT ppx: heparin My preceptor for this patient encounter was Dr. Cally Colón, and was physically present in the building during the encounter and was fully available. As needed, all aspects of the patient interview, examination, medical decision making process, and medical care plan development were reviewed and approved by the preceptor. Preceptor is aware and concurs with the plan as stated in the body of this note and will attest to such by his/her cosignature Attending Note I, Dr Cally Colón, have independently interviewed and examined this patient at the bedside. I have discussed the management plan with my Resident Physician , Dr. Mtz, and agree with the documentation as written above. VS,Fishbone, I+O VS, Fishbone, I+O Laboratory Tests 07/18/16 05:15 Red Blood Count 4.09, Mean Corpuscular Volume 89.1, Mean Corpuscular Hemoglobin 29.2, Mean Corpuscular Hemoglobin Concent 32.7, Red Cell Distribution Width 13.5 , Neutrophils (%) (Auto) 65.2, Lymphocytes (%) (Auto) 27.7, Monocytes (%) (Auto ) 4.5, Eosinophils (%) (Auto) 1.5, Basophils (%) (Auto) 0.2, Neutrophils # (Auto ) 4.6, Lymphocytes # (Auto) 2.0, Monocytes # (Auto) 0.3, Eosinophils # (Auto) 0.1, Basophils # (Auto) 0.0, Calcium Level 7.7 L, Phosphorus Level 2.9, Aspartate Amino Transf (AST/SGOT) < 3 L, Alanine Aminotransferase (ALT/SGPT) 14 , Lactate Dehydrogenase 129, Total Creatine Kinase 64, Alkaline Phosphatase 80, Total Bilirubin 0.5, Triglycerides Level 107, Cholesterol Level 131, Total Protein 5.5 L, Albumin 2.9 L Vital Signs Date Time Temp Pulse Resp B/P (MAP) Pulse Ox O2 Delivery O2 Flow Rate FiO2 07/18/16 14:00 97.7 94 16 108/71 (83) 96 Room Air 07/18/16 10:15 2.0 07/18/16 09:30 40 I&O- Last 24 Hours up to 6 AM 07/18/16 05:59 Intake Total 3067.14 ml Output Total 2905 ml Balance 162.14 ml KYLEE MTZ OGME-1 July 18, 2016 17:56 CALLY COLÓN MD July 19, 2016 06:55
[2016-07-19] MEDS: ALBUTEROL SULFATE 2.5 MG/0.5 ML INH NEB SOLN NEB SCH ×2 (01:03→08:00)
[2016-07-19] MEDS: KETOROLAC 30 MG/ML VIAL (J1885) IV SCH (05:55)
[2016-07-19] MEDS: HEPARIN SOD (PORCINE) 5000 UNITS/ML VIAL SC SCH ×2 (05:55→14:00)
[2016-07-19] MEDS: SLF 3 ML SYR IV SCH ×2 (05:56→14:00)
[2016-07-19 06:00] VITALS: BP 138/90
[2016-07-19] MEDS ORDERED: IBUP-1114 PO (06:41)
[2016-07-19] MEDS ORDERED: OMEPRAZOLE 20 MG CAP PO SCH (09:00)
[2016-07-19] MEDS ORDERED: KETOROLAC 30 MG/ML VIAL (J1885) IV PRN (11:00)
[2016-07-19] MEDS ORDERED: TIZA4CAP3 PO (18:24)
--- NOTE | 2016-07-19 22:05 | DS.PDOC ---
Discharge Summary General Date of Admission July 17, 2016 at 08:32 Date of Discharge 07/19/16 Attending Physician: CALLY COLÓN MD Specialist/Consultants Involve: Jennifer Tay Specialist/Consultants Involve Other Providers: Pulmonology: Dr. Bryan Calzada Discharge Summary Consults: Psychiatry: Dr. Dread Farah Other providers: Pulmonology: Dr. Bryan Calzada PCP: Not identified, used to see provider at [place] Procedures Performed During Hospital Stay: Insertion of R Femoral Vein Triple Lumen Central Venous Catheter Discharge diagnosis: Acute Respiratory Failure Secondary to Drug Overdose Requiring Intubation Hypotension Requiring Insertion of Central Line for Pressor Support Therapy Intentional Drug Overdose Suicide Attempt Major depressive disorder, single episode severe without psychotic symptoms Secondary diagnosis: Angioedema related to Lyrica use. Fibromyalgia. Spinal canal stenosis. Degenerative Disc Disease Chronic Back Pain Hospital course: Ms. Toro is a 51 yo F with a PMH of fibromyalgia, DDD, spinal canal stenosis , chronic back pain, and angioedema related to lyrica use, who presented to [facility] ED after ingesting 25 4 mg tablets of tizanidine. She had decreased consciousness on arrival. Was intubated by Dr. Cook. Was initially bradycardic and treated with 0.5 mg atropine x 2. She was intubated, sedated, and mechanically ventilated, and brought to the ICU for respiratory failure secondary to drug overdose for close monitoring/airway protection after intubation as well as for supportive care. She was unable to give any hx during her period of sedation and there was no family around either. Was placed on a Versed drip. She had also been given charcoal. A toxicology screen was done which was negative. She was treated with supportive care with IV hydration, sedation. Her cardiac status was followed. No signs of aspiration were present. Ulcer and DVT prophylaxis were given with protonix IV and heparin. Later, on the day of admission, the patient developed hypotension, and Dr. Calzada placed a central line in the R femoral vein for pressor support. Levophed and IV fluid hydration was administered. Patient's BP responded to levophed. On 07/18/16, the patient was extubated by Dr. Calzada, and the patient was transferred to the hospitalist service. When I interviewed her, patient told me that her called the ambulance after he found her in the bed at home. Patient stated that she ingested the xanaflex pills because she was trying to commit suicide. Moved to [place] ~ 2 years ago from [place]. Now lives in an apartment with her who is apparently wanting to divorce her ( according to the psychiatric consult note by Dr. Whitman). Patient said that her landlord is probably coming to tell them to move out of their apartment. Patient told me that she wanted to hurt herself due to everything in her life. Told me her does not care for her, otherwise he would have been there. Reported she had no one in her life. 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 She told me that if she were to be let go home, then she would attempt to kill herself again. Patient admitted to me that she had blurred vision, generalized weakness, was malnourished and losing weight. Admitted to dizziness. Admitted to SOB and chest pain all the time that began 3 months ago. Denied abdominal pain, nausea, vomiting, diarrhea, constipation. Admitted to skin breakdown after scratching. Denied any other rashes or lesions anywhere. Admitted to lumbar back pain. Admitted to herniated discs in her back and fibromyalgia. Told me she had not slept for over 75 days. Had 2 cats. Denied smoking, EtOH, illicit drug use. Psychiatry was consulted and Dr. Whitman saw patient who diagnosed her with: Major depressive disorder, single episode severe without psychotic symptoms. Dr. Whitman recommended for transfer to the inpatient psychiatric unit once patient was medically stable for discharge. It was deemed on 07/19/16, patient was in fact medically and hemodynamically stable for discharge to [facility]. Progress note on date of discharge: Subjective: Patient seen and examined at bedside. Did not make eye contact with me during interview. Denied fevers, chills, chest pain, SOB, nausea, vomiting, diarrhea, constipation. Admitted to generalized pain especially in her low back. Did not allow me to examine her abdomen and told me not to press there. Objective: Vitals: Afebrile. Vital signs stable. Please see below. General: Awake, alert, oriented 3. Cooperative female lying upright in bed in NAD. Psychiatric: Very slow at answering questions. Very flat affect and very low mood. Suicidal. Did not look at me when I spoke to her. Disinterested in anything. HEENT: Head: normocephalic, atraumatic. Eyes: PERRL, sclera are nonicteric. Nose: No external lesions Neck: Supple. Respiratory: Clear to auscultation bilaterally. Chest: Symmetrical chest rise bilaterally. Cardiovascular: regular rate and rhythm, with no murmurs, rubs or gallops. Abdomen: not examined as patient refused. Extremities: no swelling in either lower extremity bilaterally Neurological: No focal neurologic deficits appreciated bilaterally. Musculoskeletal: Exam limited as patient did not follow commands of moving upper or lower extremities due to depression and disinterest. Integumentary: skin free from rashes, lesions, abrasions Vascular: +2 radial pulses appreciated bilaterally. Labs: Please see below. Assessment: 51 yo F who presented with acute respiratory failure secondary to suicide attempt secondary to intentional drug overdose. Hypotension requiring central line and pressor support therapy. Major depressive disorder, single episode severe without psychotic symptoms. Disposition: Will be transferred and admitted to [facility]. Follow-up: With PCP in 1 week after discharge from [facility] recommended. Activity: As tolerated. Suicide precautions advised. Diet: Regular. Medications on discharge: Patient had no home medications on file. Time spent on discharge: 35 minutes. Vital Signs/I&Os Vital Signs Date Time Temp Pulse Resp B/P (MAP) Pulse Ox O2 Delivery O2 Flow Rate FiO2 07/19/16 06:00 97.9 76 15 138/90 (106) 95 Room Air 07/18/16 10:15 2.0 07/18/16 09:30 40 I&O- Last 24 Hours up to 6 AM 07/19/16 06:00 Intake Total 927 ml Output Total 3600 ml Balance -2673 ml Allergies Coded Allergies: Ciprofloxacin (Unverified Allergy, Unknown, rash, 04/01/16) Gabapentin (Unverified Allergy, Unknown, Night Terrors; Anxiety, 04/01/16) Latex (Unverified Allergy, Unknown, rash, 04/01/16) Penicillins (Unverified Allergy, Unknown, hive, 04/01/16) Pregabalin (Unverified Allergy, Unknown, Swelling of lips, anaphylaxis, 01/05) GME ATTESTATION GME ATTESTATION My preceptor for this patient encounter was Dr. Cally Colón, and was physically present in the building during the encounter and was fully available. As needed, all aspects of the patient interview, examination, medical decision making process, and medical care plan development were reviewed and approved by the preceptor. Preceptor is aware and concurs with the plan as stated in the body of this note and will attest to such by his/her cosignature. KYLEE MEEK OGME-1 July 19, 2016 22:05 CALLY COLÓN MD Aug 29, 2016 10:33
--- NOTE | 2016-07-20 05:54 | CR ---
DATE OF CONSULTATION: 07/18/2016 HISTORY OF PRESENT ILLNESS: This is a 51-year-old woman who was admitted to the intensive care unit after she took an overdose of what appear to be 25 tablets of 4 mg tizanidine. She had to be intubated. Once she was extubated, the patient stated that she wanted to be discharged so that she could try to kill herself again. When I went to see the patient, she basically did not look at me the entire time. She stated that if transferred to the psychiatric unit, that she would never be leaving the psychiatric unit. She at first did not want to answer any questions, and then answered just some of the questions with mostly a single word, most of the time just answering no, and so it is not clear if her answers are really reliable or not. Basically she indicated that she was suicidal. She had never made any suicidal attempts before. She indicated that her relationship with her was over because he had decided that he wanted a divorce, and she would not elaborate any further on that. She would not answer any questions as to whether she was depressed, but clearly she appeared to be very depressed throughout. PAST PSYCHIATRIC HISTORY: I could not elicit any other significant information for past psychiatric history. She has never had any prior outpatient or inpatient psychiatric treatment, and has never been on psychotropic medications and has never tried to kill herself before. FAMILY HISTORY: Unable to obtain. SUBSTANCE ABUSE HISTORY: Unable to obtain. MEDICAL HISTORY: Unable to obtain. MENTAL STATUS EXAMINATION: She is alert and oriented times three. Eye contact is poor. She is looking up in the ceiling. She responds with a simple one or two-word answer. There is no formal thought disorder noted. Her mood is depressed. Affect is flat. She does not appear to be psychotic. As I said, she had voiced desire to be discharged so she could kill herself. Is not homicidal. Concentration is fair. Memory appears to be grossly intact. Insight and judgment poor. DIAGNOSIS: Major depressive disorder, single episode severe without psychotic symptoms. TREATMENT PLAN: At this point, once the patient is medically stable she should be transferred to the psychiatric unit for further evaluation and treatment. VIKKI
[2016-07-20 12:32] LABS: CONTROL LINE HCG INT CTR LINE PRESENT
== END 2016-07-19 17:55 | DRG 917 ==
LOC: EDBD 05:14 → M ED 07:49 → M ED INP 08:32 → M ICU 10:00 → M MSPAV 07-18 14:34
PROVIDERS: ADMIT Internal Medicine Pulmonary Disease; ATTEND General Practice
PROC: 06HM33Z Insertion of Infusion Device into Right Femoral Vein, Percutaneous Approach (ICD-10-PCS; principal; 2016-07-17)
PROC: 0BH17EZ Insertion of Endotracheal Airway into Trachea, Via Natural or Artificial Opening (ICD-10-PCS; 2016-07-17)
PROC: 5A1945Z Respiratory Ventilation, 24-96 Consecutive Hours (ICD-10-PCS; 2016-07-17)
DX: T48.1X2A Poisoning by skeletal muscle relaxants [neuromuscular blocking agents], intentional self-harm, initial encounter (principal); J96.91 Respiratory failure, unspecified with hypoxia; E46 Unspecified protein-calorie malnutrition; F32.2 Major depressive disorder, single episode, severe without psychotic features; R00.1 Bradycardia, unspecified; I95.2 Hypotension due to drugs; T78.3XXA Angioneurotic edema, initial encounter; T43.8X5A Adverse effect of other psychotropic drugs, initial encounter; M79.7 Fibromyalgia; M51.26 Other intervertebral disc displacement, lumbar region; Z88.0 Allergy status to penicillin; Z88.8 Allergy status to other drugs, medicaments and biological substances; Z88.1 Allergy status to other antibiotic agents; Z79.899 Other long term (current) drug therapy; Y93.9 Activity, unspecified; Y99.8 Other external cause status

== ENCOUNTER 2016-07-19 17:22 | Inpatient (IN) | payer OTHER ==
[~2016-07-19] VITALS: Ht 162.6 cm; Wt 67.2 kg
[~2016-07-19 17:22] MED LIST changes: +AMBI5TAB PO; -BENA25TA10 PO; +BENA25TA9 PO; +HYDR-4274 PO; -HYDR50TA70 PO; +IBUP-1114 PO; +OXYB5TAB PO
[2016-07-19 18:09] VITALS: BP 145/100
[2016-07-19] MEDS ORDERED: TIZA4CAP3 PO (18:24)
[2016-07-19] MEDS ORDERED: ESCITALOPRAM OXALATE 10 MG TAB (LEXAPRO) PO ONE (19:30)
[2016-07-19] MEDS ORDERED: MAALOX 30 ML SUSP *UDC PO PRN (19:30)
[2016-07-19] MEDS ORDERED: MOM 30ML SUSPENSION UDC PO PRN (19:30)
[2016-07-19] MEDS ORDERED: ACETAMINOPHEN TAB 650MG DOSE (2X325MG) PO PRN (19:30)
[2016-07-19] MEDS: RAMELTEON 8 MG TAB (ROZEREM) PO SCH (21:00)
[2016-07-19 22:00] VITALS: BP 129/88
--- NOTE | 2016-07-20 10:21 | HPEPDOC ---
Medical History and Physical Date of Admission July 19, 2016 at 18:02 History and Physical PCP: None ATTENDING: Dr. Burke Marsh HPI: 51 yo F admitted to [facility] for unspecified depressive disorder, being medically examined today. Patient was admitted to [facility] from 07/17/12-07/19/16 after presenting the morning of admission after ingesting 25 tablets of 4 mg tizanidine. She was subsequently intubated, sedated, and mechanically ventilated. Patient was felt stable for transfer 07/19/16 to [facility]. No acute medical complaints today. SHe is reluctant to answer questions, but states she does not eat well. She denies any abdominal pain, nausea, or vomiting. She just does not feel like eating or drinking. She reports no pain, back pain. Denies any fevers, chills, weakness, fatigue, CUMMINGS, CP, SOB, cough, palpitations, abdominal pain, N/V/D or changes in bowel or bladder habits. PMHx: Overactive bladder Insomnia Anxiety Depression Osteoarthritis/chronic back pain PSHX: Right ankle fracture SOCHX: Resides in: Patient states she is homeless Marital Status: Single Kids: 3 Employment: Unemployed Tobacco use: Denies ETOH: Denies Illicit Drugs: Marijuana last in 2002 IV Drug Use: Denies Tattoos done unprofessionally: Denies FAMHX: Mother: , ovarian cancer Father: , homicide Siblings: 4 sisters Alive, unknown Children: Alive, well Unexpected deaths due to medical reasons: None. ROS: As noted in HPI, otherwise 11pt ROS of systems reviewed and remarkable only for LMP unknown. PE: GEN: 51 yo F, appears stated age. Well-nourished, well developed. No acute distress. Alert and oriented x 3. Reluctant to answer questions, flat affect. HEENT: Normocephalic, atraumatic. Pupils are equal, round, and reactive to light. Extraocular movements are intact. No nystagmus appreciated. Sclera are nonicteric. Conjunctiva without injection. Nose midline. Nasal turbinates without bogginess. EACs both patent BL. TMs both visualized and perry with good cone of light, no bulging or erythema. No facial asymmetry. Moist mucous membranes. Dentition fair. Pharynx pink and moist, no cobblestoning. Neck supple , trachea midline. No lymphadenopathy or thyromegaly appreciated. CHEST: Regular rate and rhythm, +S1, +S2 LUNGS: Clear to auscultation bilaterally. No wheezes, rales, or rhonchi. Breathing appears symmetric and easy. Patient is speaking in full sentences. No accessory muscle use. ABD: Round, soft, non-tender, non-distended. +Bowel sounds throughout. No rebound or guarding. No costovertebral angle tenderness. EXT: Pulses 2+ bilaterally dorsalis pedis and radial. No lower extremity edema appreciated. SKIN: [place], dry, warm. Capillary refill <2sec. No rashes. NEURO: Alert and oriented x 3. Cranial nerves III-XII are intact. No focal deficits appreciated. EK07/17/16 SINUS BRADYCARDIA PROLONGED QT INTERVAL NON-SPECIFIC ST/T ABNORMALITY NOTED IN THE RIGHT PRECORDIAL LEADS LAST RECEIVED ON 04/17/2016 AT 12:36:55, HEART RATE IS SLIGHTLY FASTER OTHERWISE NO SIGNIFICANT CHANGES CXR 07/18/16 . Lines and tubes in satisfactory position. Cannot exclude bronchitis or trace basilar atelectasis. X-rays cervical spine 07/18/16 A congenital block vertebra is present at the C2-3 level. There is no acute fracture or subluxation. The C5-6 intervertebral disc is decreased in height consistent with disc degeneration. Osteophytes are present on C5 and C6. There is loss of the normal lordotic curve X-ray lumbar spine 07/18/16 There is no acute fracture or subluxation. The L3-4 intervertebral disc is decreased in height consistent with disc degeneration. The facet joints are normal in appearance. X-ray thoracic spine 07/18/16 There is no acute fracture or subluxation. The intervertebral discs are normal in height. Anterior osteophytes are present in the mid and lower thoracic spine. There is minimal scoliosis of the upper and mid thoracic spine convex to the left. A&P: 51 yo F admitted to [facility] for unspecified depressive disorder 1. Psych. Plan per Psychiatry. EKG on file.. 2. Chronic back pain. Patient does not report any pain currently. Continue Tylenol 650 mg every 4 hours as needed. Consider pain management opinion if needed. 3. Prolonged QT interval. Recheck EKG 4. Follow up. No Primary Care Provider. Will attempt to establish PCP on discharge. 5. Overactive bladder. Patient states symptoms are controlled. She has not been taking oxybutynin at home. 6. Poor by mouth intake. BMI 23.5. Encourage by mouth. Monitor I/O, daily weight. Nutritional consult. Recheck BMP in a.m. 7. Staff member Mami present throughout exam. Vital Signs Vital Signs Date Time Temp Pulse Resp B/P (MAP) Pulse Ox O2 Delivery O2 Flow Rate FiO2 07/19/16 22:00 108 129/88 (102) 07/19/16 18:09 98.9 16 95 Room Air Laboratory Data Labs 24H Item Value Date Time White Blood Count 7.1 K/mm3 07/18/16 0515 Red Blood Count 4.09 M/mm3 07/18/16 0515 Hemoglobin 11.9 g/dl L # 07/18/16 0515 Hematocrit 36.4 % 07/18/16 0515 Mean Corpuscular Volume 89.1 fl 07/18/16 0515 Mean Corpuscular Hemoglobin 29.2 pg 07/18/16 0515 Mean Corpuscular Hemoglobin Concent 32.7 g/dl 07/18/16 0515 Red Cell Distribution Width 13.5 % 07/18/16 0515 Platelet Count 353 k/mm3 # 07/18/16 0515 Sodium Level 144 MEQ/L 07/18/16 0515 Potassium Level 4.0 MEQ/L 07/18/16 0515 Chloride Level 114 MEQ/L H 07/18/16 0515 Carbon Dioxide Level 24 MEQ/L 07/18/16 0515 Anion Gap 6 MEQ/L L 07/18/16 0515 Blood Urea Nitrogen 3 MG/DL L 07/18/16 0515 Creatinine 0.60 MG/DL 07/18/16 0515 Glomerular Filtration Rate > 60.0 07/18/16 0515 Fasting Glucose 128 MG/DL H 07/18/16 0515 Calcium Level 7.7 MG/DL L 07/18/16 0515 Whole Blood Ionized Calcium 4.6 MG/DL 07/18/16 1050 Phosphorus Level 2.9 MG/DL 07/18/16 0515 Total Bilirubin 0.5 MG/DL 07/18/16 0515 Aspartate Amino Transf (AST/SGOT) < 3 U/L L 07/18/16 0515 Alanine Aminotransferase (ALT/SGPT) 14 U/L 07/18/16 0515 Alkaline Phosphatase 80 U/L 07/18/16 0515 Lactate Dehydrogenase 129 U/L 07/18/16 0515 Total Creatine Kinase 64 U/L 07/18/16 0515 Total Protein 5.5 GM/DL L 07/18/16 0515 Albumin 2.9 GM/DL L 07/18/16 05 Albumin/Globulin Ratio 1.12 07/18/16 05 Triglycerides Level 107 MG/DL 07/18/16 05 Cholesterol Level 131 MG/DL 07/18/16 05 Thyroid Stimulating Hormone (TSH) 3.280 uIU/ML 07/17/16 0525 Home Medications Scheduled Tizanidine Hydrochloride (Tizanidine HCl) 4 Mg Cap, 4 MG PO TID for MUSCLE SPASMS Scheduled PRN Ibuprofen (Ibuprofen) 400 Mg Tab, 400 MG PO Q4HP PRN for PAIN Oxybutynin Chloride (Oxybutynin Chloride ER) 5 Mg Tab, 5 MG PO TID PRN for URINARY FREQUENCY Zolpidem Tartrate (Ambien) 5 Mg Tab, 5 MG PO QHS PRN for SLEEP Allergies Coded Allergies: Ciprofloxacin (Unverified Allergy, Unknown, rash, 04/01/16) Gabapentin (Unverified Allergy, Unknown, Night Terrors; Anxiety, 04/01/16) Latex (Unverified Allergy, Unknown, rash, 04/01/16) Penicillins (Unverified Allergy, Unknown, hive, 04/01/16) Pregabalin (Unverified Allergy, Unknown, Swelling of lips, anaphylaxis, 01/05) Vicki Davenport Jul 20, 2016 10:21
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
--- NOTE | 2016-07-20 20:57 | ECGEPIP ---
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
[2016-07-20] MEDS: RAMELTEON 8 MG TAB (ROZEREM) PO SCH (21:00)
--- NOTE | 2016-07-21 09:34 | MHIPNPDOC ---
[facility] Progress Note Progress Note DATE OF SERVICE: 07/21/16 HISTORY: day 3 of admission. Pt remains uncooperative to the interview process. VITAL SIGNS: See below. NEW TEST RESULTS: x rays reviewed CURRENT MEDICATIONS: See below. MENTAL STATUS EXAMINATION: Patient is a 51-year old female, who is wearing hospital attire, dark hair with glasses, olive complexion. Speech: Is spontaneous and sparse. Language skills are intact Thought processes including: linear, refuses to provide information to help plan her care or her discharge. Thought content: "I have no one". Abstract reasoning, and computation: concrete. Description of associations: good Description of abnormal or psychotic thoughts: does not present with psychotic symptoms, offers very little information and replies "I don't want to talk about it" when asked questions. Judgment: poor Insight: poor. Orientation: oriented to place, time, situation and person. Recent and remote memory: unable to assess Attention span and concentration: good Fund of knowledge: impaired Mood: depressed. Affect: congruent DIAGNOSES: 1. Depressive disorder unspecified. 2. adjustment disorder with depressed mood 3. r/o personality disorder 4. chronic pain 5. DDD 6. Insomnia ASSESSMENT:Pt refused again today to provide information to help assess her condition, plan treatment or plan discharge. Pt thinks she can leave on Sunday saying "you can only hold me 7 days". Pt states her intent would be to "leave in 7 days, become dehydrated and then get sick". She states she is not eating on the unit She denies sleeping last night. apparently her came to see her but she refused visitation. Pt shows no insight into her situation. She does report she has children in [place] then says, "I don't want to talk about that". She said the same thing when asked about her deployment to [place]". Pt on I & O as intake is poor. No intake or output documented for the past 24 hours. Nursing staff is aware and is monitoring. MANAGEMENT PLAN: It was explained to pt that we can keep her up to 2 months if we feel she requires ongoing care. It was explained that we would like to develop a plan that she finds suitable and will meet her needs so she can leave the hospital. Pt is refusing medications. She has not been on medication for some time. Pt will remain on the unit until we are able to gain her cooperation in developing a safe and effective discharge plan for her. Encourage pt to eat and take in fluids. TIME SPENT: 30 minutes. Vital Signs Vital Signs Date Time Temp Pulse Resp B/P (MAP) Pulse Ox O2 Delivery O2 Flow Rate FiO2 07/19/16 22:00 108 129/88 (102) 07/19/16 18:09 98.9 16 95 Room Air Current Medications Current Medications Acetaminophen (Tylenol Tab) 650 mg Q6HP PRN PO HEADACHE or DISCOMFORT; Start at 19:30; Stop 08/18/16 at 19:29 Al Hydrox/Mg Hydrox/Simethicone (Mylanta) 30 ml Q4HP PRN PO HEARTBURN/ INDIGESTION; Start 07/19/16 at 19:30; Stop 08/18/16 at 19:29 Magnesium Hydroxide (Milk Of Magnesia) 30 ml DAILYPRN PRN PO CONSTIPATION; Start 07/19/16 at 19:30; Stop 08/18/16 at 19:29 Ramelteon (Rozerem) 4 mg QHS PO ; Start 07/19/16 at 21:00; Stop 08/18/16 at 20: 59 Allergies Coded Allergies: Ciprofloxacin (Unverified Allergy, Unknown, rash, 04/01/16) Gabapentin (Unverified Allergy, Unknown, Night Terrors; Anxiety, 04/01/16) Latex (Unverified Allergy, Unknown, rash, 04/01/16) Penicillins (Unverified Allergy, Unknown, hive, 04/01/16) Pregabalin (Unverified Allergy, Unknown, Swelling of lips, anaphylaxis, 01/05) Nelida Dela Cruz Jul 21, 2016 09:34
[2016-07-21] MEDS: RAMELTEON 8 MG TAB (ROZEREM) PO SCH (21:00)
[2016-07-22 14:52] VITALS: BP 118/78
[2016-07-22] MEDS: RAMELTEON 8 MG TAB (ROZEREM) PO SCH (21:00)
[2016-07-23] MEDS: RAMELTEON 8 MG TAB (ROZEREM) PO SCH (21:00)
--- NOTE | 2016-07-23 21:13 | IPN ---
DATE OF SERVICE: 07/22/2016 The patient today continues to lay in bed. She basically told me "I don't want to talk to you." MENTAL STATUS EXAMINATION: I am not able complete a mental status exam as the patient pretty much said she did not want to talk to me. Insight and judgment is obviously poor. DIAGNOSIS: Major depressive disorder. TREATMENT PLAN: At this point, we will continue to monitor the patient for what appears to be continued depression, and she continues to be suicidal with particularly since she is not willing to talk much to us. She continues to refuse to take any medications also.
--- NOTE | 2016-07-24 05:02 | IPN ---
DATE OF SERVICE: 07/23/2016 The patient today states "I don't want to talk to you." MENTAL STATUS EXAMINATION: I was not able to do a mental status evaluation since the patient refused to talk to me. DIAGNOSIS: Major depressive disorder. TREATMENT PLAN: At this point, will continue to encourage the patient to talk and we will continue to monitor the patient for continued resolution of suicidal ideations and continued elevation of her mood.
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
[2016-07-24] MEDS: RAMELTEON 8 MG TAB (ROZEREM) PO SCH (21:00)
--- NOTE | 2016-07-25 15:08 | MHIPNPDOC ---
[facility] Progress Note Progress Note DATE OF SERVICE: 07/25/16 HISTORY: day 7. Pt admitted for depression following a tizanidine overdose and notice from he wants a divorce. VITAL SIGNS: See below. NEW TEST RESULTS: none CURRENT MEDICATIONS: See below. MENTAL STATUS EXAMINATION: Patient is a 51-year old female, who is wearing hospital garb, unkempt, wearing glasses. Speech: Is soft, spontaneous Language skills are intact Thought processes including: goal directed Thought content: bizarre at times. Abstract reasoning, and computation: poor. Description of associations: fair. Description of abnormal or psychotic thoughts: " I have an over active bladder but I can't take the medication due to an allergy in my eyes". "I don't want to leave here". Judgment: poor Insight: poor. Orientation: oriented to person, place and situation. Recent and remote memory: unable to assess, pt replies "I don't want to talk about it" when asked about things of the past and present. Attention span and concentration: poor. Fund of knowledge: impaired Mood: depressed. Affect: irritated DIAGNOSES: 1. Major depressive disorder, severe. 2. adjustment disorder with depressed mood 3. r/o personality disorder 4. chronic pain 5. DDD 6. Insomnia ASSESSMENT:Pt is not attending groups. She remains in her room. She persists in her belief no one can help her and she will not allow 3rd parties to be involved in her tx and care. She has stated she is not ready to leave and the team is in agreement with this, however she does not appear to understand there are solutions for her situation and with her help we can get them enacted. She insists on not taking medication. Her mood and affect seem to be getting worse in some ways. In other ways she is slightly more talkative. She discussed her concern for over active bladder today but then wanted to argue that we would not help her when a UA was requested. pt requested extra Toilet paper from the nurse and when given 2 rolls she stated "that won't be enough". nurse unclear as to what the patient meant by that. Pt told loan underwriter she was holding her urine this afternoon so "I don't aggravate my roommate". Roommate was sleeping so pt was shown an empty room she could use to void. She states her urine is clear. Denies burning. VSS - refused. MANAGEMENT PLAN: Pt needs to remain on I & O as she has stated she will deliberately dehydrate herself to become sick. Pt states she is voiding every 40 mins and she is drinking water all day long. She says she has had an overactive bladder for several months. Since we cannot confirm with her that she has had this problem before coming into the hospital we have to take this at face value. Lamp Inspector phone the hospitalist and explained the situation. Dr. Frye recommended a UA and then urology fu as an outpatient. He did not feel it was an acute need that required immediate intervention. When this was shared with pt she said "so I have to wait the whole 60 days". She knows we can hold her that long and she thinks she can be discharged then. It pts presentation is not more forth coming there will be no choice but to place her on the list for long-term treatment at [facility]. Tx over objection will not benefit her since there are no injectable medicaitons for depression. TIME SPENT: 15 minutes. Vital Signs Vital Signs Date Time Temp Pulse Resp B/P (MAP) Pulse Ox O2 Delivery O2 Flow Rate FiO2 07/22/16 14:52 99.0 98 20 118/78 (91) 07/19/16 18:09 95 Room Air Current Medications Current Medications Acetaminophen (Tylenol Tab) 650 mg Q6HP PRN PO HEADACHE or DISCOMFORT; Start at 19:30; Stop 08/18/16 at 19:29 Al Hydrox/Mg Hydrox/Simethicone (Mylanta) 30 ml Q4HP PRN PO HEARTBURN/ INDIGESTION; Start 07/19/16 at 19:30; Stop 08/18/16 at 19:29 Magnesium Hydroxide (Milk Of Magnesia) 30 ml DAILYPRN PRN PO CONSTIPATION; Start 07/19/16 at 19:30; Stop 08/18/16 at 19:29 Ramelteon (Rozerem) 4 mg QHS PO ; Start 07/19/16 at 21:00; Stop 08/18/16 at 20: 59 Allergies Coded Allergies: Ciprofloxacin (Unverified Allergy, Unknown, rash, 04/01/16) Gabapentin (Unverified Allergy, Unknown, Night Terrors; Anxiety, 04/01/16) Latex (Unverified Allergy, Unknown, rash, 04/01/16) Penicillins (Unverified Allergy, Unknown, hive, 04/01/16) Pregabalin (Unverified Allergy, Unknown, Swelling of lips, anaphylaxis, 01/05) Nelida Dela Cruz Jul 25, 2016 15:08
[2016-07-25] MEDS: RAMELTEON 8 MG TAB (ROZEREM) PO SCH (20:56)
--- NOTE | 2016-07-26 17:05 | MHIPNPDOC ---
[facility] Progress Note Progress Note DATE OF SERVICE: 07/26/16 HISTORY: day 8 of admission, pt on DCS after overdose of tizanidine. VITAL SIGNS: See below. NEW TEST RESULTS: na CURRENT MEDICATIONS: See below. MENTAL STATUS EXAMINATION: Patient is a 51-year old female, who is wearing hospital attire, dark hair, glasses and aloof. Speech: Is soft, faint, spontaneous Language skills are good Thought processes including: goal directed. Thought content: does not disclose, . Abstract reasoning, and computation: poor. Description of associations: will not answer, looks away. Description of abnormal or psychotic thoughts: will not answer if she is thining of harming herself. denies thoughts to harm others. Does not appear to be responding to internal stim. Judgment: limited Insight: very poor. Orientation: is oriented. Recent and remote memory: will not disclose thoughts or memories Attention span and concentration: poor Fund of knowledge: impaired Mood: depressed. Affect: constricted DIAGNOSES: 1. MDD, severe recurrent without psychotic features. 2. adjustment disorder with depressed mood 3. r/o personality disorder 4. chronic pain 5. DDD 6. Insomnia ASSESSMENT:approached pt to discuss how her evening went last night. She admitted after being asked that she is upset that she cannot get medication for her bladder. Repeated request for UA. Enc pt to focus on her plans for leaving and how she envisions her life to be. Advised her we can help her with housing and many other needs. She was ambivalent and made no reply. Observed in hallways but not attending groups or interacting with others. MANAGEMENT PLAN: continue to provide safe environment, physical and emotional support. Enc pt to talk about ways we can help her get on her own since her has ended the marriage. TIME SPENT: 15minutes. Vital Signs Vital Signs Date Time Temp Pulse Resp B/P (MAP) Pulse Ox O2 Delivery O2 Flow Rate FiO2 07/22/16 14:52 99.0 98 20 118/78 (91) Current Medications Current Medications Acetaminophen (Tylenol Tab) 650 mg Q6HP PRN PO HEADACHE or DISCOMFORT; Start at 19:30; Stop 08/18/16 at 19:29 Al Hydrox/Mg Hydrox/Simethicone (Mylanta) 30 ml Q4HP PRN PO HEARTBURN/ INDIGESTION; Start 07/19/16 at 19:30; Stop 08/18/16 at 19:29 Magnesium Hydroxide (Milk Of Magnesia) 30 ml DAILYPRN PRN PO CONSTIPATION; Start 07/19/16 at 19:30; Stop 08/18/16 at 19:29 Ramelteon (Rozerem) 4 mg QHS PO ; Start 07/19/16 at 21:00; Stop 08/18/16 at 20: 59 Allergies Coded Allergies: Ciprofloxacin (Unverified Allergy, Unknown, rash, 04/01/16) Gabapentin (Unverified Allergy, Unknown, Night Terrors; Anxiety, 04/01/16) Latex (Unverified Allergy, Unknown, rash, 04/01/16) Penicillins (Unverified Allergy, Unknown, hive, 04/01/16) Pregabalin (Unverified Allergy, Unknown, Swelling of lips, anaphylaxis, 01/05) Nelida Dela Cruz Jul 26, 2016 17:05
[2016-07-26 18:00] VITALS: BP 150/70
[2016-07-26] MEDS: RAMELTEON 8 MG TAB (ROZEREM) PO SCH (21:00)
--- NOTE | 2016-07-27 13:58 | MHIPNPDOC ---
[facility] Progress Note Progress Note DATE OF SERVICE: 07/27/16 HISTORY: day 9 of admission, pt admitted with depression after suicide attempt by overdose. VITAL SIGNS: See below. NEW TEST RESULTS: na CURRENT MEDICATIONS: See below. MENTAL STATUS EXAMINATION: Patient is a 51 year old female, who is wearing hospital attire, laying on her bed, looks like her hair needs to be shampooed, wears glasses, brief eye contact. Speech: Is limited Language skills are poor Thought processes including:linear. Thought content: pt does not share her thoughts.. Abstract reasoning, and computation: poor. Description of associations: fair. Description of abnormal or psychotic thoughts: pt has not plans for discharge. Has stated she will jeopardize her health if discharged by becoming dehydrated. Judgment: poor Insight: poor Orientation: Recent and remote memory: appears good Attention span and concentration: poor Fund of knowledge: poor Mood:dysphoric. Affect: congruent. DIAGNOSES: 1. Major depressive disorder, severe. 2. adjustment disorder with depressed mood 3. r/o personality disorder 4. chronic pain 5. DDD 6. Insomnia ASSESSMENT:pt is refusing treatment, will not accept medication for depression or insomnia. she has transferred her focus to her bladder rather than the reason she is here. She ambulates in the hallway, no interaction with peers, refuses to sign GILA's for discharge planning. Pt will be informed that she will discharged if she continues to refuse treatment. She states she will kill herself if she is discharged. She states she wants to be transferred to long- term care. She is informed that she is not appropriate for that level of care because she is refusing treatment and is not cooperating with any treatment recommendations. Pt is complaining of dry mouth today while she eats saltine crackers that will only make her xerostoma worse. MANAGEMENT PLAN: Will discuss possibility of [facility] with management if pt persists in refusing to engage in treatment. Pt would go to [place] where her family is but she says she does not have the money. This is not confirmed and we cannot verify since she refuses to allow us to contact her . TIME SPENT: 30 minutes. Vital Signs Vital Signs Date Time Temp Pulse Resp B/P (MAP) Pulse Ox O2 Delivery O2 Flow Rate FiO2 07/26/16 18:00 99.1 128 16 150/70 (96) Current Medications Current Medications Acetaminophen (Tylenol Tab) 650 mg Q6HP PRN PO HEADACHE or DISCOMFORT; Start at 19:30; Stop 08/18/16 at 19:29 Al Hydrox/Mg Hydrox/Simethicone (Mylanta) 30 ml Q4HP PRN PO HEARTBURN/ INDIGESTION; Start 07/19/16 at 19:30; Stop 08/18/16 at 19:29 Magnesium Hydroxide (Milk Of Magnesia) 30 ml DAILYPRN PRN PO CONSTIPATION; Start 07/19/16 at 19:30; Stop 08/18/16 at 19:29 Ramelteon (Rozerem) 4 mg QHS PO ; Start 07/19/16 at 21:00; Stop 08/18/16 at 20: 59 Allergies Coded Allergies: Ciprofloxacin (Unverified Allergy, Unknown, rash, 04/01/16) Gabapentin (Unverified Allergy, Unknown, Night Terrors; Anxiety, 04/01/16) Latex (Unverified Allergy, Unknown, rash, 04/01/16) Penicillins (Unverified Allergy, Unknown, hive, 04/01/16) Pregabalin (Unverified Allergy, Unknown, Swelling of lips, anaphylaxis, 01/05) Nelida Dela Cruz Jul 27, 2016 13:58
[2016-07-27] MEDS: RAMELTEON 8 MG TAB (ROZEREM) PO SCH (21:00)
[2016-07-28] MEDS: SALIVA SUBSTITUTE(MOUTHKOTE) BTL MT PRN ×4 (01:01→09:52)
[2016-07-28] MEDS: **PENDING PPD ENTRY XX SCH (09:00)
--- NOTE | 2016-07-28 15:03 | MHIPNPDOC ---
[facility] Progress Note Progress Note DATE OF SERVICE: 07/28/16 HISTORY: day 10, patient took a very serious overdose with the intent to commit suicide. VITAL SIGNS: See below. NEW TEST RESULTS: na CURRENT MEDICATIONS: See below. MENTAL STATUS EXAMINATION: Patient is a 51-year old female, who is dressed in hospital attire, refusing to shower, appears depressed, wears glasses with dark hair. Speech: Is limited, soft, spontaneous Language skills are good Thought processes including: ? somatic delusions, very negative about treatment and future. thoughts are organized. Thought content: she does not share them only answers questions. Abstract reasoning, and computation: fair. Description of associations: good Description of abnormal or psychotic thoughts: pt remains intent on suicide once she is discharged. pt is refusing medications without reason, pt denies perceptual disturbance. Judgment: poor Insight: . poor Orientation: knows month, day of the week and year Recent and remote memory: appears intact. Attention span and concentration: limited Fund of knowledge: impaired, does not value knowledge of others. Mood: severely depressed. Affect: constricted DIAGNOSES: 1. MDD, recurrent severe, without psychotic features. 2. Alcohol dependence in remission 3. cluster B type personality ASSESSMENT:We have gotten to know a few things about Michelle since yesterday. She was being treated by [facility] for [facility] (we think) and she is very angry that they cut off her benefits when she stopped treatment. [facility] stating [facility] don't offer [facility]. We contacted [facility] who will authorize residential care if we recommend it. We will begin the process. Pt was informed antidepressant medication would be re-ordered for her and she promptly stated "I won't take it". She did not want to discuss what medication or know anything about it. the purpose of ordering it is to show her refusal over a course of time. Pt also refuses sleep aid but has been advised to wave her hand during room checks so staff can see she is awake and not sleeping. She may not comply with this request. Pt is eating more. Pt is not complaining about urination and she failed to provide a specimen also. MANAGEMENT PLAN: [place] [facility] Pt will not require conversion to 2 PC as she is DCS. continue I & O, daily weights and close observation. Monitor sleep and encourage attention to hygiene. Encourage medication compliance. Pt has mouth spray now to help with xerostoma. TIME SPENT: 15 minutes. Vital Signs Vital Signs Date Time Temp Pulse Resp B/P (MAP) Pulse Ox O2 Delivery O2 Flow Rate FiO2 07/26/16 18:00 99.1 128 16 150/70 (96) Current Medications Current Medications Acetaminophen (Tylenol Tab) 650 mg Q6HP PRN PO HEADACHE or DISCOMFORT; Start at 19:30; Stop 08/18/16 at 19:29 Al Hydrox/Mg Hydrox/Simethicone (Mylanta) 30 ml Q4HP PRN PO HEARTBURN/ INDIGESTION; Start 07/19/16 at 19:30; Stop 08/18/16 at 19:29 Magnesium Hydroxide (Milk Of Magnesia) 30 ml DAILYPRN PRN PO CONSTIPATION; Start 07/19/16 at 19:30; Stop 08/18/16 at 19:29 Ramelteon (Rozerem) 4 mg QHS PO ; Start 07/19/16 at 21:00; Stop 08/18/16 at 20: 59 Saliva Substitute (Mouthkote) 2 sprays Q1HP PRN MT DRY MOUTH Last administered on 07/28/16 09:52; Start 07/28/16 at 08:15; Stop 08/26/16 at 18:44 Saliva Substitute (Mouthkote) 2 sprays Q2HP PRN MT DRY MOUTH Last administered on 07/28/16 07:00; Start 07/27/16 at 18:45; Stop 07/28/16 at 08:06; Status DC Allergies Coded Allergies: Ciprofloxacin (Unverified Allergy, Unknown, rash, 04/01/16) Gabapentin (Unverified Allergy, Unknown, Night Terrors; Anxiety, 04/01/16) Latex (Unverified Allergy, Unknown, rash, 04/01/16) Penicillins (Unverified Allergy, Unknown, hive, 04/01/16) Pregabalin (Unverified Allergy, Unknown, Swelling of lips, anaphylaxis, 01/05) Nelida Dela Cruz Jul 28, 2016 15:03
[2016-07-28 18:00] VITALS: BP 119/76
[2016-07-28] MEDS: BACTRIM 160MG/800MG DS TAB PO SCH (21:00)
[2016-07-28] MEDS: RAMELTEON 8 MG TAB (ROZEREM) PO SCH (21:00)
[2016-07-29] MEDS: SALIVA SUBSTITUTE(MOUTHKOTE) BTL MT PRN ×3 (08:23→19:48)
[2016-07-29] MEDS: BACTRIM 160MG/800MG DS TAB PO SCH ×2 (09:00→21:35)
[2016-07-29] MEDS: PARoxetine 10MG TABLET PO SCH (09:00)
[2016-07-29] MEDS: **PENDING PPD ENTRY XX SCH (09:00)
[2016-07-29] MEDS ORDERED: TUBERCULIN PPD 5 UNITS/0.1 ML ID ONE (10:00)
[2016-07-29] MEDS: RAMELTEON 8 MG TAB (ROZEREM) PO SCH (21:00)
[2016-07-30 06:00] VITALS: BP 113/63
[2016-07-30] MEDS: BACTRIM 160MG/800MG DS TAB PO SCH ×2 (08:21→20:45)
[2016-07-30] MEDS: **PENDING PPD ENTRY XX SCH (09:00)
[2016-07-30] MEDS: PARoxetine 10MG TABLET PO SCH (09:00)
[2016-07-30] MEDS: SALIVA SUBSTITUTE(MOUTHKOTE) BTL MT PRN (09:45)
[2016-07-30] MEDS ORDERED: PPD DOCUMENTATION ENTRY MISC XX SCH (10:00)
[2016-07-30] MEDS: RAMELTEON 8 MG TAB (ROZEREM) PO SCH (21:00)
[2016-07-31] MEDS: PARoxetine 10MG TABLET PO SCH (08:18)
[2016-07-31] MEDS: **PENDING PPD ENTRY XX SCH (08:18)
[2016-07-31] MEDS: BACTRIM 160MG/800MG DS TAB PO SCH ×2 (08:19→21:00)
--- NOTE | 2016-07-31 15:06 | MHIPNPDOC ---
[facility] Progress Note Progress Note DATE OF SERVICE: 07/31/16 HISTORY: day 13. [facility] on Tizanidine. VITAL SIGNS: See below. NEW TEST RESULTS: + UTI CURRENT MEDICATIONS: See below. MENTAL STATUS EXAMINATION: Patient is a 51-year old female, who is dressed in hospital attire, not showering, ambulates well iin hallway, make little eye contact, barely cooperative. Speech: Is spontaneous Language skills are intact Thought processes including: goal directed/conflicted, says she needs help but refuses meds and interventions that would be of benefit to her. Thought content: somatically preoccupied. Abstract reasoning, and computation: concrete. Description of associations: good. Description of abnormal or psychotic thoughts: pt remains suicidal. pt is not psychotic. Judgment: poor Insight: fair. Orientation: oriented to place, time and person, as well as situation. Recent and remote memory: impaired Attention span and concentration: adequate Fund of knowledge: impaired Mood: irritable. Affect: constricted. DIAGNOSES: 1. Major depressive disorder, severe. 2. adjustment disorder with depressed mood 3. r/o personality disorder 4. chronic pain 5. DDD 6. Insomnia ASSESSMENT:pt is dismissive and angry. She does not like being told what to do to help herself. She is resistant of most efforts to engage her and get her involved in therapeutic activity. She is somatically focused and lays in bed waiting to urinate. She denies taking oxybuturin at home. She refuses 1:1 to discuss concerns, stressors, future plans. Pt is not sleeping but is not helping us determine how much sleep she gets. She does not wave at rounder as requested. Refuses to take Trazodone, Atarax, low dose Seroquel, and becomes annoyed if pressed. Benefits of sleep explained to her but she does not want to hear about it. MANAGEMENT PLAN: continue to encourage medication adherence, attendance at group and keep an open, non judgemental attitude when dealing with Michelle. 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 pt is in agreement with the plan. TIME SPENT: 15 minutes. Vital Signs Vital Signs Date Time Temp Pulse Resp B/P (MAP) Pulse Ox O2 Delivery O2 Flow Rate FiO2 07/30/16 06:00 97.6 92 16 113/63 (80) Current Medications Current Medications Acetaminophen (Tylenol Tab) 650 mg Q6HP PRN PO HEADACHE or DISCOMFORT; Start at 19:30; Stop 08/18/16 at 19:29 Al Hydrox/Mg Hydrox/Simethicone (Mylanta) 30 ml Q4HP PRN PO HEARTBURN/ INDIGESTION; Start 07/19/16 at 19:30; Stop 08/18/16 at 19:29 Magnesium Hydroxide (Milk Of Magnesia) 30 ml DAILYPRN PRN PO CONSTIPATION; Start 07/19/16 at 19:30; Stop 08/18/16 at 19:29 Non-Formulary Medication ( See Comment Field Below ) SEE LABEL COMMENTS DAILY XX ; Start 07/28/16 at 09:00; Stop 08/27/16 at 08:59 Non-Formulary Medication ( See Comment Field Below ) continue to offer until... 1T@10 XX ; Start 07/30/16 at 10:00; Stop 07/31/16 at 09:59; Status UNV Paroxetine HCl (PAXil) 10 mg DAILY PO ; Start 07/29/16 at 09:00; Stop 08/28/16 at 08:59 Ramelteon (Rozerem) 4 mg QHS PO ; Start 07/19/16 at 21:00; Stop 08/18/16 at 20: 59 Saliva Substitute (Mouthkote) 2 sprays Q1HP PRN MT DRY MOUTH Last administered on 07/30/16 09:45; Start 07/28/16 at 08:15; Stop 08/26/16 at 18:44 Saliva Substitute (Mouthkote) 2 sprays Q2HP PRN MT DRY MOUTH Last administered on 07/28/16 07:00; Start 07/27/16 at 18:45; Stop 07/28/16 at 08:06; Status DC Trimethoprim/ Sulfamethoxazole (Bactrim Ds, Septra Ds 160mg/ 800mg) 1 tab BID PO Last administered on 07/31/16 08:19; Start 07/28/16 at 21:00; Stop 08/07/16 at 09:00 Allergies Coded Allergies: Ciprofloxacin (Unverified Allergy, Unknown, rash, 04/01/16) Gabapentin (Unverified Allergy, Unknown, Night Terrors; Anxiety, 04/01/16) Latex (Unverified Allergy, Unknown, rash, 04/01/16) Penicillins (Unverified Allergy, Unknown, hive, 04/01/16) Pregabalin (Unverified Allergy, Unknown, Swelling of lips, anaphylaxis, 01/05) Nelida Dela Cruz Jul 31, 2016 15:06
[2016-07-31 18:00] VITALS: BP 106/58
[2016-07-31] MEDS: RAMELTEON 8 MG TAB (ROZEREM) PO SCH (21:00)
[2016-08-01] MEDS: PARoxetine 10MG TABLET PO SCH (09:00)
[2016-08-01] MEDS: NITROFURANTOIN (MACROBID) 100 MG CAP PO SCH ×2 (09:00→21:00)
--- NOTE | 2016-08-01 09:52 | IPNPDOC ---
Subjective Date Seen The patient was seen on 08/01/16. Subjective Chief Complaint/HPI The patient is a 51-year-old female admitted with a reason for visit of Unspecified Depressive Do. Events since last encounter Requested by provider and Pt to re evaluate Pt regarding UC results and antibiotic possible side effects. Pt does not report any urinary symptoms at this time. Denies urinary frequency, urgency, abdominal pain. Pt declined to go to exam room for exam, I spoke with the pt in her room with door slightly ajar, maintaining Pt confidentiality. When staff member Omari was available I requested that he observe our conversation. Constitutional: Denies: Chills, Fever ENT: Denies: Head Aches Pulmonary: Denies: Dyspnea, Cough Cardiovascular: Denies: Chest Pain, Palpitations, Orthopnea, Paroxysmal Noc. Dyspnea, Lt Headedness Gastrointestinal: Denies: Nausea, Vomiting, Abdominal Pain, Diarrhea, Constipation Genitourinary: Denies: Dysuria, Frequency, Incontinence, Retention Objective Physical Examination General Exam: Positive: Alert Other physical findings Not completed as pt declined to go to Pt exam room. Assessment /Plan Problems (1) UTI (urinary tract infection) Status: Acute Problem Text: * UC 07/26/16 indicated E coli. * Pt had been placed on po Bactrim however sensitivity indicates resistance. * Repeat UA/UC today. * Pt allergic to PCN, Cipro. * Add Macrobid 1 tab po BID x 7days. * This is fully explained to the pt. * Omari safety professional present for conversation. Plan/VTE VTE Prophylaxis Ordered?: No (ambulatory. ) VS, I&O, 24H, Fishbone Vital Signs/I&O Vital Signs Date Time Temp Pulse Resp B/P (MAP) Pulse Ox O2 Delivery O2 Flow Rate FiO2 07/31/16 18:00 98.0 83 16 106/58 (74) Laboratory Data Microbiology Microbiology 07/26/16 Urine Culture - Final, Complete Escherichia Coli Vicki Davenport Aug 01, 2016 09:52
--- NOTE | 2016-08-01 11:41 | MHIPNPDOC ---
[facility] Progress Note Progress Note DATE OF SERVICE: 08/01/16 HISTORY: day 14/pt transferred to our unit, following a nearly lethal suicide attempt. VITAL SIGNS: See below. NEW TEST RESULTS: urine culture pending CURRENT MEDICATIONS: See below. MENTAL STATUS EXAMINATION: Patient is a 51-year old female, who is wearing hospital attire, glasses, poor hygiene, poor eye contact. Speech: Is soft in volume, low in tone, spontaneous Language skills are intact Thought processes including: in group she is linear and goal directed. goal directed in her requests of staff. Thought content: somatically preoccupied. Abstract reasoning, and computation: concrete. Description of associations: good. Description of abnormal or psychotic thoughts: pt continues to voice Suicidal intent if discharged, denies she is ready to leave the hospital, requests long- term care. refusing meds and will often lay in bed rather than attending groups. Judgment: poor Insight: very limited. Orientation: refuses to answer, says I know that when asked the date but would not provide an answer. Recent and remote memory: no memories shared Attention span and concentration: limited Fund of knowledge: impaired Mood: depressed. Affect: angry, hostile at times, dismissive at others. DIAGNOSES: 1. Major depressive disorder, severe. 2. adjustment disorder with depressed mood 3. borderline personality disorder 4. chronic pain 5. DDD 6. Insomnia ASSESSMENT:pt reported to health underwriter that the antibiotic she is taking for a UTI is "lowering my blood pressure too low". Request made to have PA evaluate and perhaps order a different med. PA did evaluate, pt refused exam then refused new medication. Pt asked to provide new urine sample. Staff informed health underwriter that pt has been attentive and forthcoming when she attends group. they describe her in group as "doing very well". Pt is talking more but remains somatic and unreasonable. Pt is refusing to do the things that would be most beneficial to her. Still won't sign GILA's for or family so they can offer insight into Michelle's treatment. Michelle does not want to be discharged and is aware she is on the list for treatment at [facility]. Pt is very stubborn about medications and shows no insight into how she can gain control over her life. Pt has been dx by this health underwriter as having borderline personality disorder. this stems from her desire to control all things and her very black or white thinking. It is all or nothing with Michelle. Her reluctance to share her experiences with us leave her in control and keeps everyone at a distance. Her lack of interest in improving her mood or cooperating in treatment seems to indicate a perverse need to inflict a rather subtle self-harm without actually doing something. She has denied us access to the very people that may be able to shed a light on what led to her overdose and what is currently driving her decision making. MANAGEMENT PLAN: continue close observation, encourage medication adherence and group attendance. monitor sleep and pt asked to wave her hand during nighttime room checks if she is awake. Pt is not very cooperative with requests. TIME SPENT: 15 minutes. Vital Signs Vital Signs Date Time Temp Pulse Resp B/P (MAP) Pulse Ox O2 Delivery O2 Flow Rate FiO2 07/31/16 18:00 98.0 83 16 106/58 (74) Current Medications Current Medications Acetaminophen (Tylenol Tab) 650 mg Q6HP PRN PO HEADACHE or DISCOMFORT; Start at 19:30; Stop 08/18/16 at 19:29 Al Hydrox/Mg Hydrox/Simethicone (Mylanta) 30 ml Q4HP PRN PO HEARTBURN/ INDIGESTION; Start 07/19/16 at 19:30; Stop 08/18/16 at 19:29 Magnesium Hydroxide (Milk Of Magnesia) 30 ml DAILYPRN PRN PO CONSTIPATION; Start 07/19/16 at 19:30; Stop 08/18/16 at 19:29 Nitrofurantoin Monoh/Nitrofur Macro (Macrobid) 100 mg BID PO ; Start 08/01/16 at 09:00; Stop 08/07/16 at 23:59 Non-Formulary Medication ( See Comment Field Below ) SEE LABEL COMMENTS DAILY XX ; Start 07/28/16 at 09:00; Stop 08/27/16 at 08:59 Non-Formulary Medication ( See Comment Field Below ) continue to offer until... 1T@10 XX ; Start 07/30/16 at 10:00; Stop 07/31/16 at 09:59; Status UNV Paroxetine HCl (PAXil) 10 mg DAILY PO ; Start 07/29/16 at 09:00; Stop 08/28/16 at 08:59 Ramelteon (Rozerem) 4 mg QHS PO ; Start 07/19/16 at 21:00; Stop 08/18/16 at 20: 59 Saliva Substitute (Mouthkote) 2 sprays Q1HP PRN MT DRY MOUTH Last administered on 07/30/16 09:45; Start 07/28/16 at 08:15; Stop 08/26/16 at 18:44 Saliva Substitute (Mouthkote) 2 sprays Q2HP PRN MT DRY MOUTH Last administered on 07/28/16 07:00; Start 07/27/16 at 18:45; Stop 07/28/16 at 08:06; Status DC Trimethoprim/ Sulfamethoxazole (Bactrim Ds, Septra Ds 160mg/ 800mg) 1 tab BID PO Last administered on 07/31/16 08:19; Start 07/28/16 at 21:00; Stop 08/01/16 at 08:43; Status DC Allergies Coded Allergies: Ciprofloxacin (Unverified Allergy, Unknown, rash, 04/01/16) Gabapentin (Unverified Allergy, Unknown, Night Terrors; Anxiety, 04/01/16) Latex (Unverified Allergy, Unknown, rash, 04/01/16) Penicillins (Unverified Allergy, Unknown, hive, 04/01/16) Pregabalin (Unverified Allergy, Unknown, Swelling of lips, anaphylaxis, 01/05) Nelida Dela Cruz Aug 01, 2016 11:41
[2016-08-01 12:20] LABS: YEAST LIKE CELL URINE AUTO LARGE
[2016-08-01] MEDS ORDERED: TUBERCULIN PPD 5 UNITS/0.1 ML ID SCH (13:00)
[2016-08-01 18:27] VITALS: BP 108/67
[2016-08-01] MEDS: RAMELTEON 8 MG TAB (ROZEREM) PO SCH (21:00)
[2016-08-02] MEDS: PARoxetine 10MG TABLET PO SCH (08:47)
[2016-08-02] MEDS: NITROFURANTOIN (MACROBID) 100 MG CAP PO SCH ×2 (08:47→20:19)
[2016-08-02 11:02] VITALS: BP 120/72
--- NOTE | 2016-08-02 14:44 | MHIPNPDOC ---
[facility] Progress Note Progress Note DATE OF SERVICE: 08/02/16 HISTORY: day 15 of admission following a very serious suicide attempt. VITAL SIGNS: See below. NEW TEST RESULTS: + for E coli in urine sample. CURRENT MEDICATIONS: See below. MENTAL STATUS EXAMINATION: Patient is a 51-year old female, who is lying in bed, wearing hospital attire, and eye glasses. Speech: Is soft and spontaneous Language skills are good Thought processes including: circular and unrealistic Thought content: somatically preoccupied. "what if, what if" . . . Abstract reasoning, and computation: concrete. Description of associations:good. Description of abnormal or psychotic thoughts: irrational reasoning as to why she won't take the antibiotic. "no one knows my body better than I do". Judgment: poor Insight: poor. Orientation: aware of place and circumstances, can reoriente self to time, oriented to person. Recent and remote memory: unknown Attention span and concentration: good if she is interested in subject. Fund of knowledge: impaired due to state of mind. Mood: depressed. Affect: paranoid, anxious. DIAGNOSES: ASSESSMENT:pt accepted PPD for [facility] yesterday. She remains uninterested in treatment. not attending programming today as her bladder hurts. refusing the macrobid fearing something could happen. Had an allergic reaction in the past. Ask how staff is going to save her if she has another. Assured that we can call a code and have 20 professionals here in less than 5 minutes. "I could in that time". No answer is acceptable to her. Wants to argue over everything. Very angry again today. Told conventional underwriter she would think about it in reference to the antibiotic. Told pat her VS are stable and her BP is within normal limits. She believes the antidepressant is making it lower. Assured her that numerous medical/surgery registered nurse have reviewed her VS and they are good. MANAGEMENT PLAN: continue to encourage meds, render support and reassurance, monitor q 15 mins, watch po intake and output, repeat urine C& S on Vicki's recommendation. TIME SPENT: 15 minutes. Vital Signs Vital Signs Date Time Temp Pulse Resp B/P (MAP) Pulse Ox O2 Delivery O2 Flow Rate FiO2 08/02/16 11:02 80 16 120/72 (88) 94 Room Air 08/01/16 18:27 97.8 Current Medications Current Medications Acetaminophen (Tylenol Tab) 650 mg Q6HP PRN PO HEADACHE or DISCOMFORT; Start at 19:30; Stop 08/18/16 at 19:29 Al Hydrox/Mg Hydrox/Simethicone (Mylanta) 30 ml Q4HP PRN PO HEARTBURN/ INDIGESTION; Start 07/19/16 at 19:30; Stop 08/18/16 at 19:29 Magnesium Hydroxide (Milk Of Magnesia) 30 ml DAILYPRN PRN PO CONSTIPATION; Start 07/19/16 at 19:30; Stop 08/18/16 at 19:29 Nitrofurantoin Monoh/Nitrofur Macro (Macrobid) 100 mg BID PO ; Start 08/01/16 at 09:00; Stop 08/07/16 at 23:59 Non-Formulary Medication ( See Comment Field Below ) SEE LABEL COMMENTS DAILY XX ; Start 07/28/16 at 09:00; Stop 08/01/16 at 11:45; Status DC Non-Formulary Medication ( See Comment Field Below ) SEE LABEL COMMENTS SECTION 1T@1300 XX ; Start 08/03/16 at 13:00; Stop 08/04/16 at 12:59 Non-Formulary Medication ( See Comment Field Below ) continue to offer until... 1T@10 XX ; Start 07/30/16 at 10:00; Stop 07/31/16 at 09:59; Status UNV Paroxetine HCl (PAXil) 10 mg DAILY PO ; Start 07/29/16 at 09:00; Stop 08/28/16 at 08:59 Ramelteon (Rozerem) 4 mg QHS PO ; Start 07/19/16 at 21:00; Stop 08/18/16 at 20: 59 Saliva Substitute (Mouthkote) 2 sprays Q1HP PRN MT DRY MOUTH Last administered on 07/30/16t 09:45; Start 07/28/16 at 08:15; Stop 08/26/16 at 18:44 Saliva Substitute (Mouthkote) 2 sprays Q2HP PRN MT DRY MOUTH Last administered on 07/28/16t 07:00; Start 07/27/16 at 18:45; Stop 07/28/16 at 08:06; Status DC Trimethoprim/ Sulfamethoxazole (Bactrim Ds, Septra Ds 160mg/ 800mg) 1 tab BID PO Last administered on 07/31/16t 08:19; Start 07/28/16 at 21:00; Stop 08/01/16 at 08:43; Status DC Tuberculin PPD (Aplisol, Ppd) 5 units 1T@1300 ID Last administered on t 13:25; Start 08/01/16 at 13:00; Stop 08/01/16 at 13:01; Status DC Allergies Coded Allergies: Ciprofloxacin (Unverified Allergy, Unknown, rash, 04/01/16) Gabapentin (Unverified Allergy, Unknown, Night Terrors; Anxiety, 04/01/16) Latex (Unverified Allergy, Unknown, rash, 04/01/16) Penicillins (Unverified Allergy, Unknown, hive, 04/01/16) Pregabalin (Unverified Allergy, Unknown, Swelling of lips, anaphylaxis, 01/05) Nelida Dela Cruz Aug 02, 2016 14:44
[2016-08-02 18:15] VITALS: BP 115/71
[2016-08-02] MEDS: RAMELTEON 8 MG TAB (ROZEREM) PO SCH (20:20)
[2016-08-03 06:51] VITALS: BP 105/70
[2016-08-03] MEDS: PARoxetine 10MG TABLET PO SCH (08:34)
[2016-08-03] MEDS: NITROFURANTOIN (MACROBID) 100 MG CAP PO SCH ×2 (08:34→20:38)
--- NOTE | 2016-08-03 11:37 | MHIPNPDOC ---
[facility] Progress Note Progress Note DATE OF SERVICE: 08/03/16 HISTORY: day, pt admitted following nearly lethal suicide attempt. VITAL SIGNS: See below. NEW TEST RESULTS: na. CURRENT MEDICATIONS: See below. MENTAL STATUS EXAMINATION: Patient is a 51-year old female, who is lying in bed, wearing hospital attire, eye glasses, limited eye contact and speaking very softly. Speech: Is clear. Language skills are good. Thought processes including: linear Thought content: somatically preoccupied. Abstract reasoning, and computation: concrete Description of associations: good. Description of abnormal or psychotic thoughts: pt remains suicidal and would attempt if she is discharged from the hospital. Pt is somatically focused to avoid dealing with the reason she is here. Judgment: poor Insight: poor. Orientation: well oriented in all spheres. Recent and remote memory: not able to assess as pt does not share thoughts or memories. Attention span and concentration: limited Fund of knowledge: impaired due to depression Mood: depressed Affect: angry DIAGNOSES: 1. Major depressive disorder, severe. 2. adjustment disorder with depressed mood 3. borderline personality disorder 4. chronic pain 5. DDD 6. Insomnia ASSESSMENT: met with Michelle for 1:1 today. She said she is angry that her room is locked during group times as she needs to come in and use the bathroom. Asked Michelle if the room is unlocked every 2 hours or every hour for her if that would be satisfactory. She said it would not. She said she needs to go to the [facility] more often. She did take the macrobid today so hopefully her UTI is on the way to being over. Addressed her focus on physical symptoms as a way for her to avoid talking about the real reason she is here. This made her angry and she refused to talk anymore. 1:1 terminated at her request. MANAGEMENT PLAN: pt remains on the list for transfer to [facility] as she will not engage in treatment for her depressive condition and remains suicidal. TIME SPENT: 15 minutes. Vital Signs Vital Signs Date Time Temp Pulse Resp B/P (MAP) Pulse Ox O2 Delivery O2 Flow Rate FiO2 08/03/16 06:51 97.9 80 16 105/70 (82) 08/02/16 11:02 94 Room Air Current Medications Current Medications Acetaminophen (Tylenol Tab) 650 mg Q6HP PRN PO HEADACHE or DISCOMFORT; Start at 19:30; Stop 08/18/16 at 19:29 Al Hydrox/Mg Hydrox/Simethicone (Mylanta) 30 ml Q4HP PRN PO HEARTBURN/ INDIGESTION; Start 07/19/16 at 19:30; Stop 08/18/16 at 19:29 Magnesium Hydroxide (Milk Of Magnesia) 30 ml DAILYPRN PRN PO CONSTIPATION; Start 07/19/16 at 19:30; Stop 08/18/16 at 19:29 Nitrofurantoin Monoh/Nitrofur Macro (Macrobid) 100 mg BID PO Last administered on 08/03/16 08:34; Start 08/01/16 at 09:00; Stop 08/07/16 at 23:59 Non-Formulary Medication ( See Comment Field Below ) SEE LABEL COMMENTS DAILY XX ; Start 07/28/16 at 09:00; Stop 08/01/16 at 11:45; Status DC Non-Formulary Medication ( See Comment Field Below ) SEE LABEL COMMENTS SECTION 1T@1300 XX ; Start 08/03/16 at 13:00; Stop 08/04/16 at 12:59 Non-Formulary Medication ( See Comment Field Below ) continue to offer until... 1T@10 XX ; Start 07/30/16 at 10:00; Stop 07/31/16 at 09:59; Status UNV Paroxetine HCl (PAXil) 10 mg DAILY PO ; Start 07/29/16 at 09:00; Stop 08/28/16 at 08:59 Ramelteon (Rozerem) 4 mg QHS PO ; Start 07/19/16 at 21:00; Stop 08/18/16 at 20: 59 Saliva Substitute (Mouthkote) 2 sprays Q1HP PRN MT DRY MOUTH Last administered on 07/30/16 09:45; Start 07/28/16 at 08:15; Stop 08/26/16 at 18:44 Saliva Substitute (Mouthkote) 2 sprays Q2HP PRN MT DRY MOUTH Last administered on 07/28/16 07:00; Start 07/27/16 at 18:45; Stop 07/28/16 at 08:06; Status DC Trimethoprim/ Sulfamethoxazole (Bactrim Ds, Septra Ds 160mg/ 800mg) 1 tab BID PO Last administered on 07/31/16 08:19; Start 07/28/16 at 21:00; Stop 08/01/16 at 08:43; Status DC Tuberculin PPD (Aplisol, Ppd) 5 units 1T@1300 ID Last administered on 13:25; Start 08/01/16 at 13:00; Stop 08/01/16 at 13:01; Status DC Allergies Coded Allergies: Ciprofloxacin (Unverified Allergy, Unknown, rash, 04/01/16) Gabapentin (Unverified Allergy, Unknown, Night Terrors; Anxiety, 04/01/16) Latex (Unverified Allergy, Unknown, rash, 04/01/16) Penicillins (Unverified Allergy, Unknown, hive, 04/01/16) Pregabalin (Unverified Allergy, Unknown, Swelling of lips, anaphylaxis, 01/05) Nelida Dela rCuz Aug 03, 2016 11:37
[2016-08-03] MEDS ORDERED: PPD DOCUMENTATION ENTRY MISC XX SCH (13:00)
[2016-08-03 18:00] VITALS: BP 107/59
[2016-08-03] MEDS: RAMELTEON 8 MG TAB (ROZEREM) PO SCH (20:38)
[2016-08-04] MEDS: PARoxetine 10MG TABLET PO SCH (09:00)
[2016-08-04] MEDS: NITROFURANTOIN (MACROBID) 100 MG CAP PO SCH ×2 (09:08→20:54)
--- NOTE | 2016-08-04 12:16 | MHIPNPDOC ---
[facility] Progress Note Progress Note DATE OF SERVICE: 08/04/16 HISTORY: day 17. pt admitted after medically cleared following a nearly lethal overdose with the intent to commit suicide. VITAL SIGNS: See below. NEW TEST RESULTS: na CURRENT MEDICATIONS: See below. MENTAL STATUS EXAMINATION: Patient is a 51 year old female, who is angry at telegraphic typewriter operator chief today, will not speak or acknowledge a greeting. says she does not have to talk to me and will not look at telegraphic typewriter operator chief. Speech: Is spontaneous and limited Language skills are intact Thought processes including: no delusions observed. Thought content: anger Abstract reasoning, and computation: refuses to engage. Description of associations: will not reply. Description of abnormal or psychotic thoughts: pt has verbalized her intention to kill herself if released from the hospital. At the same time pt is refusing all treatment efforts to help alleviate her depression. She is very guarded and angry. She is somatically focused and her anger stems from being gently confronted with this reality. Judgment: poor Insight: poor. Orientation: well oriented Recent and remote memory: not able to be evaluated today Attention span and concentration: limited Fund of knowledge: impaired by depression. Mood: dysphoric Affect: congruent. DIAGNOSES: 1. Major depressive disorder, severe. 2. adjustment disorder with depressed mood 3. borderline personality disorder 4. chronic pain 5. DDD 6. Insomnia ASSESSMENT:pt is viewed pacing in hallway at times. interacted appropriately with nursing staff. wants to be allowed access to her room all day instead of attending groups. She says she needs to use the bathroom. Patient does not have overactive bladder per her own admission. Pt is diverting her attention to inconsequential things as a means to avoid her real issues. PO intake is monitored and she eats very little. She is observed engaging in conversation with her roommate which is a new thing for her. MANAGEMENT PLAN: continue monitoring of safety, I & O, offer medications as prescribed. pt states she is not sleeping but she refuses to follow instuctions we have asked from her so we know she is not asleep. Pt has been accepted by [facility] and will be transferred early next week. TIME SPENT: 15 minutes. Vital Signs Vital Signs Date Time Temp Pulse Resp B/P (MAP) Pulse Ox O2 Delivery O2 Flow Rate FiO2 08/03/16 18:00 97.8 85 16 107/59 (75) 08/02/16 11:02 94 Room Air Current Medications Current Medications Acetaminophen (Tylenol Tab) 650 mg Q6HP PRN PO HEADACHE or DISCOMFORT; Start at 19:30; Stop 08/18/16 at 19:29 Al Hydrox/Mg Hydrox/Simethicone (Mylanta) 30 ml Q4HP PRN PO HEARTBURN/ INDIGESTION; Start 07/19/16 at 19:30; Stop 08/18/16 at 19:29 Magnesium Hydroxide (Milk Of Magnesia) 30 ml DAILYPRN PRN PO CONSTIPATION; Start 07/19/16 at 19:30; Stop 08/18/16 at 19:29 Nitrofurantoin Monoh/Nitrofur Macro (Macrobid) 100 mg BID PO Last administered on 08/04/16 09:08; Start 08/01/16 at 09:00; Stop 08/07/16 at 23:59 Non-Formulary Medication ( See Comment Field Below ) SEE LABEL COMMENTS DAILY XX ; Start 07/28/16 at 09:00; Stop 08/01/16 at 11:45; Status DC Non-Formulary Medication ( See Comment Field Below ) SEE LABEL COMMENTS SECTION 1T@1300 XX Last administered on 08/03/16 13:56; Start 08/03/16 at 13: 00; Stop 08/04/16 at 12:59 Non-Formulary Medication ( See Comment Field Below ) continue to offer until... 1T@10 XX ; Start 07/30/16 at 10:00; Stop 07/31/16 at 09:59; Status UNV Paroxetine HCl (PAXil) 10 mg DAILY PO ; Start 07/29/16 at 09:00; Stop 08/28/16 at 08:59 Ramelteon (Rozerem) 4 mg QHS PO ; Start 07/19/16 at 21:00; Stop 08/18/16 at 20: 59 Saliva Substitute (Mouthkote) 2 sprays Q1HP PRN MT DRY MOUTH Last administered on 07/30/16 09:45; Start 07/28/16 at 08:15; Stop 08/26/16 at 18:44 Saliva Substitute (Mouthkote) 2 sprays Q2HP PRN MT DRY MOUTH Last administered on 07/28/16 07:00; Start 07/27/16 at 18:45; Stop 07/28/16 at 08:06; Status DC Trimethoprim/ Sulfamethoxazole (Bactrim Ds, Septra Ds 160mg/ 800mg) 1 tab BID PO Last administered on 07/31/16 08:19; Start 07/28/16 at 21:00; Stop 08/01/16 at 08:43; Status DC Tuberculin PPD (Aplisol, Ppd) 5 units 1T@1300 ID Last administered on 13:25; Start 08/01/16 at 13:00; Stop 08/01/16 at 13:01; Status DC Allergies Coded Allergies: Ciprofloxacin (Unverified Allergy, Unknown, rash, 04/01/16) Gabapentin (Unverified Allergy, Unknown, Night Terrors; Anxiety, 04/01/16) Latex (Unverified Allergy, Unknown, rash, 04/01/16) Penicillins (Unverified Allergy, Unknown, hive, 04/01/16) Pregabalin (Unverified Allergy, Unknown, Swelling of lips, anaphylaxis, 01/05) Nelida Del aCruz Aug 04, 2016 12:16
[2016-08-04] MEDS: RAMELTEON 8 MG TAB (ROZEREM) PO SCH (20:55)
[2016-08-05] MEDS: PARoxetine 10MG TABLET PO SCH (08:29)
[2016-08-05] MEDS: NITROFURANTOIN (MACROBID) 100 MG CAP PO SCH ×2 (08:31→21:52)
[2016-08-05] MEDS: RAMELTEON 8 MG TAB (ROZEREM) PO SCH (21:00)
[2016-08-06] MEDS: PARoxetine 10MG TABLET PO SCH (08:38)
[2016-08-06] MEDS: NITROFURANTOIN (MACROBID) 100 MG CAP PO SCH ×2 (08:39→21:54)
[2016-08-06] MEDS: RAMELTEON 8 MG TAB (ROZEREM) PO SCH (21:00)
[2016-08-07] MEDS: PARoxetine 10MG TABLET PO SCH (09:00)
[2016-08-07] MEDS: NITROFURANTOIN (MACROBID) 100 MG CAP PO SCH (09:24)
--- NOTE | 2016-08-07 10:02 | MHDSPDOC ---
[facility] Discharge Summary Discharge Summary DATE OF ADMISSION: July 19, 2016 at 18:02 DATE OF DISCHARGE: August 07, 2016 DISCHARGE DIAGNOSES: 1. Major depressive disorder, severe. 2. adjustment disorder with depressed mood 3. borderline personality disorder 4. chronic pain 5. DDD 6. Insomnia REASON FOR ADMISSION: Transferred from the medical floor to mental health following intentional overdose on tizanidine 4 mg. Pt ingested 25 tablets after her told her he wanted a divorce. Pt required Atropin twice in ED for respiratory failure. She stabilized quickly and arrived on our unit on . TREATMENT AND PROGRESS ON THE UNIT : Pt refused psychotropic medications immediately. She offered that she had tried several and "they didn't work". Pt states she has tried them all, venlafaxine, citalopram, fluoxetine, paroxetine, bupropion, amitriptyline, Narplan, Trintellix. It is unlikely she has tried all of them and she would not sign an GILA for her [facility] records to be reviewed. Sawyer states she has been [facility] and at [facility] on and neither agency "was any good". This is the patients first inpatient psychiatric admission. Her overdose was very severe and we tried to explained to Michelle that we had at our disposal, many options to help her get back on her feet and plan for the next few months but she was unwilling. She stated very early after admission that "I need long-term care. I can't be discharged. I will just try to kill myself again. I will allow myself to get dehydrated and end up back in the hospital". Sawyer has siblings and children alive and well in [place]. Her lives locally. Michelle refused numerous requests to allow us to contact her or family. She finally signed a release for her the weekend before her transfer only so she could get some clothing brought in by him. Sawyer has 1 pair of pants and shoes that she is refusing to wear insisting she be discharged in hospital owned property. She says she would change at [employer] into their clothing and return ours to the ambulance drivers. Pt laid in bed all day until we started locking her door during group times. This made her very angry. She would not accept that she was here for treatment and she needed to participate in at least one form of treatment while here. She refused medications (SSRI's, SNRI's, SGA's) during the entire admission, only taking an antibiotic when E coli was found in her urine. She complained about the Amoxicillin lowering her blood pressure and though the staff gently challenged this, as it was not true, Michelle persisted with "I know my body better than anyone else. When she did go to group the staff described her as "she did great, she participated, she is talking more". Michelle preferred lying in bed in her room and haivng little interaction with others. She did begin talking by the time she had her 3rd roommate and it was good to see her socializing. She would leave the room for meals but not much else. During 1:1 she was visibly uncomfortable, answering with one word answers or shaking her head. It was very difficult to get information from her. We explained a variety of options to transition her from inpatient to outpatient but she insisted on committing suicide if discharged. It became necessary to refer her for long- term treatment as she made very little progress since admission. HOSPITAL COURSE: Pt has a personality disorder that is complicating her recovery. She is very oppositional to suggestions regarding treatment interventions. She would not agree to do the simplest of things - first it was showering, then groups and of course medications. She would not allow any releases so we could talk about her situation with family members. From day one she said she would not take medications as "they don't help". In reviewing the patients chart, she has numerous visits to our ED almost several times a month for a year. She is somatically focused. When confronted about this she became enraged and would not speak to the treatment team. If pressed she would give a very rude reply saying "I don't have to speak to you". True statement but once again, not beneficial to her progress. She made it clear she would not be returning home and she wanted long-term treatment. The matter of ECT was presented to Michelle who said, "I will think about it". When follow up question asked in 24 hours or so she stated, "no, I'm not doing that". It became known that the [facility] had terminated Michelle's service connected benefits because she failed to participate in psychiatric treatment as an outpatient. She would not discuss the details of this but it would be relatively easy for her to get these reinstated. She was referred to the [facility] in [place] for inpatient treatment but they declined to take her feeling she required ocean transportation intermediary care. She would not allow us to contact any SD employees or case management services or housing services. DISCHARGE ASSESSMENT: Pt is severely depressed and is not invested in her recovery. She sets up the situation between staff and self as adversarial. She splits staff choosing to talk to some and being rude to others. She flatly refuses to do the things that would improve her state of mind the most. She wants to talk about her bladder, her blood pressure, her skin, anything but her state of depression and how to improve it. She remains actively suicidal and at risk for self-harm if discharged and left on her own. Her works at the [facility] on . Write just learned this today. She refused to provide his cell phone number but our DC Programmable Logic Controller Assembler has it. MENTAL STATUS EXAMINATION ON DISCHARGE: Patient is a 51-year old female, who is lying in bed, wearing glasses, in hospital attire, appears clean and is refusing to change from the hospital clothes to her personal clothing. Speech is spontaneous Language skills are intact Thought processes including: adversarial, combative, argumentative, coherent. Thought content: preoccupied with incidental things. Abstract reasoning, and computation: concrete Description of associations: good Description of abnormal or psychotic thoughts: no psychotic symptoms, no delusions or compulsions expressed. She remains suicidal and is high risk after the previous attempt in Jun, 2016. Judgment: poor. Insight: very poor. Orientation to person, place, time and situation. Recent and remote memory: appears intact based on what little information one can get from her. Attention span and concentration: poor Fund of knowledge: impaired due to depression. Mood: depressed Affect: constricted. MEDICATIONS ON DISCHARGE: -none per her refusal. Paxil 10 mg offered during admission. She had been taking Lexapro 10 mg which she stopped several months ago. PLAN/FOLLOWUP ARRANGEMENTS: transfer to [facility] for ongoing care. The amount of time spent in the coordination of care for this patient was approximately 30 minutes. Vital Signs/I&Os Vital Signs Date Time Temp Pulse Resp B/P (MAP) Pulse Ox O2 Delivery O2 Flow Rate FiO2 08/03/16 18:00 97.8 85 16 107/59 (75) 08/02/16 11:02 94 Room Air I&O- Last 24 Hours up to 6 AM 08/07/16 06:00 Intake Total 1500 ml Balance 1500 ml Laboratory Data Microbiology Microbiology 08/01/16 Urine Culture - Final, Complete Escherichia Coli Allergies Coded Allergies: Ciprofloxacin (Unverified Allergy, Unknown, rash, 04/01/16) Gabapentin (Unverified Allergy, Unknown, Night Terrors; Anxiety, 04/01/16) Latex (Unverified Allergy, Unknown, rash, 04/01/16) Penicillins (Unverified Allergy, Unknown, hive, 04/01/16) Pregabalin (Unverified Allergy, Unknown, Swelling of lips, anaphylaxis, 01/05) Nelida Dela Cruz Aug 07, 2016 10:01
== END 2016-08-07 11:45 | DRG 885 ==
LOC: M PSY 18:02
PROVIDERS: ADMIT Psychiatry & Neurology Psychiatry; ATTEND Psychiatry & Neurology Psychiatry
DX: F32.2 Major depressive disorder, single episode, severe without psychotic features (principal); N32.81 Overactive bladder; G47.00 Insomnia, unspecified; F43.21 Adjustment disorder with depressed mood; F41.9 Anxiety disorder, unspecified; F60.3 Borderline personality disorder; M19.90 Unspecified osteoarthritis, unspecified site; M54.9 Dorsalgia, unspecified; Z59.0 Homelessness; Z79.899 Other long term (current) drug therapy; Z88.0 Allergy status to penicillin; Z91.040 Latex allergy status; Z88.1 Allergy status to other antibiotic agents; Z91.5 Personal history of self-harm; Z91.14 Patient's other noncompliance with medication regimen